=== PATIENT | female | born 1935 | race Caucasian/White ===

== ENCOUNTER 2019-06-08 10:22 | Emergency (ER) | payer MEDICARE, OTHER ==
[2019-06-08 10:36] VITALS: PULSE 60
--- NOTE | 2019-06-08 10:48 | EDM.PDOC ---
ED HPI GENERAL MEDICAL PROBLEM - General Chief Complaint: Back Pain or Injury Stated Complaint: BACK PAIN Time Seen by Provider: 06/08/19 10:35 Source of Information: Reports: Patient, Family (spouse) History Limitations: Reports: No Limitations - History of Present Illness INITIAL COMMENTS - FREE TEXT/NARRATIVE: 84-year-old female presents to the ED complaining of diffuse right low back pain radiating to the right buttock cheek and posterior right thigh to the knee. It does not travel below the knee. No recent falls or injuries. Patient gets around with aid of a cane because of Parkinson's disease to help with her balance. She also has a walker at home. She reports a similar type event couple years ago in her low back that was treated in [facility]. Vision has known osteoporosis and is on a bi-phsphonate every 6 months. Pain started suddenly started on Tuesday, June 06 and is progressively worsened. It is not bad if she's lying still it is painful to lie on that side. It's worse if she is standing or trying to walk. Denies any problems with her bladder or bowel control or at least no worsening of her stress incontinence. Onset: Sudden Onset Date: 06/06/19 Duration: Day(s):, Constant, Getting Worse Location: Reports: Back (Right low back radiate into the right buttock cheek and posterior lateral leg.) Quality: Reports: Ache, Throbbing, Other Severity: Moderate (Sharp and stabbing at times with standing. 7 out of 10) Improves with: Reports: Rest Worsens with: Reports: Other (Standing) Context: Reports: Other. 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 Right Lower Back Pain Score (Numeric/FACES): 8 - Related Data Allergies Allergy/AdvReac Type Severity Reaction Status Date / Time No Known Allergies Allergy Verified 06/08/19 10:36 Home Meds: Home Meds Allopurinol [Zyloprim] 150 mg PO DAILY 08/16/15 [History] Benazepril [Lotensin] 20 mg PO DAILY 08/16/15 [History] Carbidopa/Levodopa [Sinemet 10-100 mg] 1 tab PO ASDIRECTED 08/16/15 [History] Furosemide [Lasix] 20 mg PO BIDDIURETIC 08/16/15 [History] Potassium Chloride [Klor-Con M20] 20 meq PO DAILY 08/16/15 [History] atorvaSTATin [Lipitor] 10 mg PO BEDTIME 08/16/15 [History] Cetirizine [ZyrTEC] 10 mg PO DAILY 06/08/19 [History] Diclofenac Sodium [Voltaren] 50 mg PO BID #20 tab.ec 06/08/19 [Rx] Fluticasone Propionate [Flonase] 16 gm NS DAILY 06/08/19 [History] [place]-3 Fatty Acids/Fish Oil [Fish Oil 1,000 mg Softgel] 1 each PO DAILY [History] oxyCODONE HCl/Acetaminophen [Percocet 5-325 mg Tablet] 1 - 2 each PO Q4H PRN # 12 tablet 06/08/19 [Rx] predniSONE 20 mg PO ASDIRECTED #15 tab 06/08/19 [Rx] Past Medical History Cardiovascular History: Reports: High Cholesterol, Hypertension Gastrointestinal History: Reports: GERD Neurological History: Reports: Parkinson's - Past Surgical History Musculoskeletal Surgical History: Reports: Knee Replacement Social & Family History - Tobacco Use Smoking Status *Q: Never Smoker - Recreational Drug Use Recreational Drug Use: No - Living Situation & Occupation Living situation: Reports: Occupation: Retired ED ROS GENERAL - Review of Systems Review Of Systems: See Below Constitutional: Reports: Weakness, Fatigue, Decreased Appetite. Denies: Fever, Chills, Malaise HEENT: Reports: Glasses Respiratory: Reports: No Symptoms Cardiovascular: Reports: Blood Pressure Problem, Dyspnea on Exertion. Denies: Chest Pain, Claudication, Edema, Lightheadedness, Orthopnea Endocrine: Reports: Fatigue GI/Abdominal: Reports: Constipation : Reports: Frequency, Incontinence (Mostly stress-induced occasional urgency component no worse with recent back pain.) Musculoskeletal: Reports: Neck Pain, Shoulder Pain, Back Pain (Known also arthritic changes in her lower back no history of compression fractures.), Joint Pain (Knees and hips at times.) Skin: Reports: No Symptoms Neurological: Reports: Difficulty Walking (Has Parkinson's disease), Weakness ( or balance problems bradykinesia. ), Gait Disturbance, Other Psychiatric: Reports: No Symptoms. Denies: Hallucinations Hematologic/Lymphatic: Reports: No Symptoms Immunologic: Reports: No Symptoms ED EXAM,LOWER BACK PAIN/INJURY - Physical Exam Exam: See Below Exam Limited By: No Limitations General Appearance: Alert, WD/WN, No Apparent Distress, Other (Temperatures 36.9. Pulse is 60 and sinus. Respiratory is 16 blood pressures not recorded. O2 sats are 98%) Eye Exam: Bilateral Eye: Normal Inspection Throat/Mouth: Normal Inspection, Normal Oropharynx Head: Atraumatic, Normocephalic Neck: Normal Inspection, Supple, Limited Range of Motion, Tender Lateral. No: Lymphadenopathy (L), Lymphadenopathy (R) Respiratory/Chest: No Respiratory Distress, Lungs Clear, Normal Breath Sounds, No Accessory Muscle Use, Decreased Breath Sounds Cardiovascular: Normal Peripheral Pulses, Regular Rate, Rhythm, No Edema, No Gallop, No Murmur, No Rub (Breath sounds are very minimally decreased in both lower bases.) GI/Abdominal: Normal Bowel Sounds, Soft, Non-Tender, No Organomegaly, No Abnormal Bruit, No Mass, Pelvis Stable Back Exam: Other (No obvious paraspinal muscle spasm on either side of the lower back. There is point tenderness over L5-S1 facet joints bilaterally with slightly worse in the right as compared to the left. There is pain throughout the right mid and lower SI joint on the right side as compared to the left.) Extremities: Normal Inspection, Other (Has evidence of posterior 30 changes both knees with very limited external and internal rotation of both hips.) Neurological: Alert, Normal Mood/Affect, CN II-XII Intact, No Motor/Sensory Deficits, Oriented x 3. No: Normal Gait (Bradykinesia from Parkinson's disease. Uses a cane to aid her ambulation and balance.) Psychiatric: Normal Affect, Normal Mood Skin Exam: Warm, Dry, Intact, Normal Color, No Rash Course - Vital Signs Last Recorded V/S: Last Vital Signs Temp 36.9 C 06/08/19 10:34 Pulse 60 06/08/19 10:34 Resp 16 06/08/19 10:34 BP Pulse Ox 98 06/08/19 10:34 - Orders/Labs/Meds Orders: Active Orders 24 hr Category Date Time Status Lumbar Spine wo Cont [CT] Stat Exams 06/08/19 10:44 Taken - Radiology Interpretation Free Text/Narrative:: 84-year-old female presents the ED with sudden onset of diffuse right low back pain radiating to her posterior lateral buttock on the right side and into the posterior lateral thigh but not below the knee. No history of known compression fractures. History of osteoarthritis in her back and known osteoporosis. Pain is much worse when she tries to sit or ambulate. On exam pain is localized to the L5-S1 facet joints bilaterally and throughout the right sacroiliac joint. Plan : CT lumbar spine. Rule out compression fracture. - Re-Assessments/Exams Free Text/Narrative Re-Assessment/Exam: 06/08/19 11:12 CT lumbar spine is been completed. It revealed reveals advanced degenerative arthritic changes particularly in the lower 3 vertebra. There is slight retrolisthesis of L4 on L3. There is advanced degenerative arthritic changes in all of the facet joints of the lumbar spine particularly L3-L5. There is near complete loss of the disc space between L4-L5 and L5-S1. There is nerve root entrapment on the right side at L4-5 level. There are no compression fractures and no obvious herniated disks. Patient will be treated with a combination of prednisone and low-dose anti-inflammatory with pain management as needed for the next few days. Advise follow-up with Dr. Marcus her primary care physician in a week's time Departure - Departure Time of Disposition: 11:15 Disposition: Home, Self-Care 01 Condition: Fair Clinical Impression: Degenerative disc disease, lumbar, Sacroiliitis Degenerative arthritis of lumbar spine Qualifiers: Spinal osteoarthritis complication: with radiculopathy Qualified Code(s): M47.26 - Other spondylosis with radiculopathy, lumbar region - Discharge Information *PRESCRIPTION DRUG MONITORING PROGRAM REVIEWED*: No *COPY OF PRESCRIPTION DRUG MONITORING REPORT IN PATIENT LEO: No Prescriptions: Diclofenac Sodium [Voltaren] 50 mg PO BID #20 tab.ec oxyCODONE HCl/Acetaminophen [Percocet 5-325 mg Tablet] 1 - 2 each PO Q4H PRN # 12 tablet PRN Reason: pain relief. predniSONE 20 mg PO ASDIRECTED #15 tab Referrals: Nawaf Marcus MD [Primary Care Provider] - Forms: ED Department Discharge Additional Instructions: Evaluation the emergency room today in regards to acute onset of right low back pain rating to the right buttock and sacroiliac joint area. CT of the lumbar spine reveals advanced degenerative arthritic changes particularly in the facet joints. There was also associated degenerative disc disease particular at L4-L5 and L5-S1 levels. The discs appear well gone in this area. This does cause marked narrowing of the neural foramina on the right side at the L4-L5 level. Minor nerve root compression in this area causing current pain syndrome. There is also a component of right-sided sacroiliitis on examination. His means inflammation of the joint where joins on to the pelvic bones. Suggest treatment to be anti-inflammatory Voltaren 50 mg twice daily with food for the next 10 days. Prednisone 20 mg with breakfast and supper for 5 days and then 1 in the morning only for another 5 days to relieve pain and inflammation as well. Just picking up some Pepcid 20 mg and taking this once daily while taking the anti- inflammatory medication to protect the stomach from development of any ulcers or inflammation from the anti-inflammatory medicines. Prescription written for Percocet 5/325 mg tablet one every 4-6 hours as needed for pain relief until the anti-inflammatories become effective. Suggest follow-up with only next Tuesday if able to make sure that you are getting better. Expect marked improvement over the next 48-72 hours. - My Orders Last 24 Hours: My Active Orders 06/08/19 10:44 Lumbar Spine wo Cont [CT] Stat - Assessment/Plan Last 24 Hours: My Active Orders 06/08/19 10:44 Lumbar Spine wo Cont [CT] Stat
--- NOTE | 2019-06-08 12:04 | CT ---
CT lumbar spine Technique: Multiple axial sections were obtained from above the T11-T12 disc inferiorly through the L5-S1 disc. Reconstructed coronal and sagittal images were reviewed. Findings: T11-T12: Severe disc space narrowing with vacuum disc phenomena is noted. Posterior disc maintains a concave margin. No central canal stenosis or neural foraminal stenosis is seen. T12-L1: Posterior disc space narrowing is seen. Posterior disc maintains a concave margin. Mild degenerative apophyseal change is noted. No central canal stenosis or neural foraminal stenosis is seen. L1-L2: Minimal retrolisthesis by several millimeters is noted. Slight circumferential disc bulge is seen. Mild degenerative apophyseal change is noted. No central canal stenosis is seen. Disc bulging causes bilateral neural foraminal stenosis which is worse on the left side. No central canal stenosis is seen. L2-L3: Posterior disc space narrowing is seen. Moderate degenerative apophyseal change is noted with thickening of the ligamentum flavum. Moderate circumferential disc bulge is seen. Findings cause a moderate degree of central canal stenosis. Bilateral neural foraminal stenosis is also noted. L3-L4: Mild spondylolisthesis is seen measuring about 4 mm. This finding is due to severe degenerative apophyseal change. Thickening of the ligamentum flavum is seen. Posterior disc space narrowing is noted. Circumferential disc bulge is noted which is moderate in severity. Vacuum disc phenomena is noted within the disc. Findings cause moderate to severe central canal stenosis. Neural foramina are also felt to be compromised on both sides. L4-L5: Severe disc space narrowing is seen with vacuum phenomena. Fairly severe degenerative apophyseal change is seen. Central canal is mildly narrowed. Right neural foramina is narrowed. Left neural foramen appears patent where the nerve root exits. Circumferential disc bulge is present. L5-S1: Mild diffuse posterior disc bulge is seen. Vacuum disc phenomena is noted. Posterior disc space narrowing is seen. No central canal stenosis is seen. Neural foramina appear to be patent where the nerve roots exit. Severe degenerative apophyseal change is seen. No fracture is appreciated. Impression: 1. Diffuse degenerative change as noted above. Most significant findings are a moderate degree of central canal stenosis at L2-L3 and moderate to severe central canal stenosis at L3-L4. Several levels of neural foraminal stenosis are also noted. Diagnostic code #3
== END 2019-06-08 11:40 | disposition home or self-care (01) ==
LOC: JD.ED 10:22
DX: M51.37 Other intervertebral disc degeneration, lumbosacral region (principal); M46.1 Sacroiliitis, not elsewhere classified; M47.26 Other spondylosis with radiculopathy, lumbar region; G20 Parkinson's disease; E78.00 Pure hypercholesterolemia, unspecified; I10 Essential (primary) hypertension; Z79.899 Other long term (current) drug therapy
CPT/HCPCS: 72131; 72131-26; 99283-25

== ENCOUNTER 2019-09-24 12:38 | Emergency (ER) | payer MEDICARE, OTHER ==
[2019-09-24 13:04] VITALS: BP 84/38; PULSE 70
[2019-09-24] MEDS ORDERED: Sodium Chloride 0.9% 10 ML Syringe FLUSH PRN (13:19)
[2019-09-24] MEDS ORDERED: Sodium Chloride 0.9% 1,000 ML IV SCH (13:30)
--- NOTE | 2019-09-24 13:33 | EDM.PDOC ---
<Jolie Su - Last Filed: 09/24/19 13:22> ED HPI GENERAL MEDICAL PROBLEM - General Chief Complaint: Cardiovascular Problem Stated Complaint: FALL (3 TIME)/SYNCOPE Time Seen by Provider: 09/24/19 13:01 Source of Information: Reports: Patient, Significant Other History Limitations: Reports: No Limitations - History of Present Illness INITIAL COMMENTS - FREE TEXT/NARRATIVE: Patient is a pleasant 84-year-old female with a history of Parkinson's who presents for two weeks of diarrhea and syncope with two falls in the past five days. She reports that two weeks ago her abdomen started cramping and then the diarrhea started. She reports that she has at least 12 episodes per day. The abdominal cramping has resolved. She notes that the stool is mainly water with mucous since she has not been eating very much for the past week due to a decreased appetite. She has been pushing the fluids. She can not say with certainty whether she has seen blood in the stool or toilet, she thinks maybe she saw blood in the toilet when the diarrhea first started, but then states she had been eating a lot of beets, so unsure if it was blood or beets. She reports that the first time she fell five days ago, she had gotten out of bed to go to the bathroom, she made it to the bathroom but then her leg gave out and she fell to the ground. She does not know whether she hit her head during this fall. The most recent fall was last night, she got up out of the recliner and made it three steps when she "blacked out" and fell to the ground. She states her vision just went black and then she was on the floor. Her reports that she had a similar episode this morning, but he caught her before she fell to the ground. Onset: Gradual Duration: Week(s): - Related Data Allergies Allergy/AdvReac Type Severity Reaction Status Date / Time No Known Allergies Allergy Verified 09/24/19 12:58 Home Meds: Home Meds Benazepril [Lotensin] 20 mg PO DAILY 08/16/15 [History] Carbidopa/Levodopa [Sinemet 10-100 mg] 1.5 tab PO ASDIRECTED 08/16/15 [History] Furosemide [Lasix] 20 mg PO BIDDIURETIC 08/16/15 [History] Potassium Chloride [Klor-Con M20] 20 meq PO DAILY 08/16/15 [History] allopurinoL [Zyloprim] 150 mg PO DAILY 08/16/15 [History] Cetirizine [ZyrTEC] 10 mg PO DAILY 06/08/19 [History] Fluticasone Propionate [Flonase] 16 gm NS DAILY 06/08/19 [History] Calcium Carbonate/Vitamin D3 [Calcium Carbonate/Vitamin D 600 MG-200 Unit] 1 tab PO BID 09/24/19 [History] Cyanocobalamin (Vitamin B-12) [B-12] 1,000 mcg PO DAILY 09/24/19 [History] Past Medical History HEENT History: Reports: Impaired Vision Cardiovascular History: Reports: High Cholesterol, Hypertension Gastrointestinal History: Reports: GERD Genitourinary History: Reports: Other (See Below) Other Genitourinary History: 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 Neurological History: Reports: Parkinson's - Past Surgical History Musculoskeletal Surgical History: Reports: Knee Replacement Social & Family History - Tobacco Use Smoking Status *Q: Never Smoker - Caffeine Use Caffeine Use: Reports: Coffee Caffeine Use Comment: 2 cups a day - Recreational Drug Use Recreational Drug Use: No - Living Situation & Occupation Living situation: Reports: Occupation: Retired ED ROS GENERAL - Review of Systems Review Of Systems: See Below Constitutional: Reports: Decreased Appetite. Denies: Fever, Chills, Weakness, Fatigue Respiratory: Reports: No Symptoms. Denies: Shortness of Breath, Wheezing, Cough Cardiovascular: Reports: Lightheadedness, Syncope. Denies: Chest Pain, Edema GI/Abdominal: Reports: Diarrhea (at least 12 episodes per day), Decreased Appetite, Stool Incontinence. Denies: Abdominal Pain, Black Stool, Distension, Nausea, Vomiting Skin: Reports: No Symptoms. Denies: Rash Neurological: Reports: Syncope. Denies: Dizziness, Headache, Numbness, Tingling , Weakness Psychiatric: Reports: No Symptoms ED EXAM, GENERAL - Physical Exam Exam: See Below Exam Limited By: No Limitations General Appearance: Alert, WD/WN, No Apparent Distress Head: Atraumatic, Normocephalic Neck: Normal Inspection, Supple, Non-Tender, Full Range of Motion Respiratory/Chest: No Respiratory Distress, Lungs Clear, Normal Breath Sounds, No Accessory Muscle Use, Chest Non-Tender Cardiovascular: Normal Peripheral Pulses, Regular Rate, Rhythm, No Edema, No Gallop, No Murmur, No Rub GI/Abdominal: Normal Bowel Sounds, Soft, Non-Tender, No Organomegaly, No Distention, No Mass Back Exam: Normal Inspection Extremities: No Pedal Edema, Normal Capillary Refill Neurological: Alert, Oriented, Normal Cognition, No Motor/Sensory Deficits Psychiatric: Normal Affect, Normal Mood Skin Exam: Warm, Dry, Intact, Normal Color, No Rash Course - Vital Signs Last Recorded V/S: Last Vital Signs Temp 97.3 F 09/24/19 12:58 Pulse 70 09/24/19 12:58 Resp 16 09/24/19 12:58 BP 84/38 L 09/24/19 12:58 Pulse Ox 98 09/24/19 12:58 - Orders/Labs/Meds Orders: Active Orders 24 hr Category Date Time Status Cardiac Monitoring [RC] . DIRECTED Care 09/24/19 13:19 Active EKG Documentation Completion [RC] STAT Care 09/24/19 13:20 Active Peripheral IV Care [RC] . DIRECTED Care 09/24/19 13:19 Active Sodium Chloride 0.9% [Normal Saline] 1,000 ml Med 09/24/19 13:30 Active IV .BOLUS Sodium Chloride 0.9% [Saline Flush] Med 09/24/19 13:19 Active 10 ml FLUSH ASDIRECTED PRN Peripheral IV Insertion Adult [OM.PC] Stat Oth 09/24/19 13:19 Ordered Medication Orders Sodium Chloride (Normal Saline) 1,000 mls @ 1,000 mls/hr IV .BOLUS RL Last Admin: 09/24/19 13:38 Dose: 1,000 mls/hr Sodium Chloride (Saline Flush) 10 ml FLUSH ASDIRECTED PRN PRN Reason: Keep Vein Open Last Admin: 09/24/19 13:38 Dose: 10 ml Labs: Laboratory Tests 09/24/19 09/24/19 09/24/19 Range/Units 13:26 13:26 15:30 WBC 7.45 (3.98-10.04) K/mm3 RBC 4.31 (3.98-5.22) M/mm3 Hgb 12.5 D (11.2-15.7) gm/dl Hct 40.4 (34.1-44.9) % MCV 93.7 (79.4-94.8) fl MCH 29.0 (25.6-32.2) pg MCHC 30.9 L (32.2-35.5) g/dl RDW Std Deviation 50.0 H (36.4-46.3) fL Plt Count 219 (182-369) K/mm3 MPV 10.0 (9.4-12.3) fl Neut % (Auto) 76.0 H (34.0-71.1) % Lymph % (Auto) 10.9 L (19.3-51.7) % [place] % (Auto) 10.6 (4.7-12.5) % Eos % (Auto) 1.6 (0.7-5.8) Baso % (Auto) 0.5 (0.1-1.2) % Neut # (Auto) 5.66 (1.56-6.13) K/mm3 Lymph # (Auto) 0.81 L (1.18-3.74) K/mm3 Morris # (Auto) 0.79 H (0.24-0.36) K/mm3 Eos # (Auto) 0.12 (0.04-0.36) K/mm3 Baso # (Auto) 0.04 (0.01-0.08) K/mm3 Sodium 142 (136-145) mEq/L Potassium 3.7 (3.5-5.1) mEq/L Chloride 103 (98-107) mEq/L Carbon Dioxide 26 (21-32) mEq/L Anion Gap 16.7 H (5-15) BUN 41 H (7-18) mg/dL Creatinine 2.2 H (0.55-1.02) mg/dL Est Cr Clr Drug Dosing 16.82 mL/min Estimated GFR (MDRD) 21 (>60) mL/min BUN/Creatinine Ratio 18.6 H (14-18) Glucose 106 (83-115) mg/dL Calcium 10.4 H D (8.5-10.1) mg/dL Magnesium 1.5 L (1.8-2.4) mg/dl Total Bilirubin 0.7 (0.2-1.0) mg/dL AST 9 L (15-37) U/L ALT 9 L (14-59) U/L Alkaline Phosphatase 57 (46-116) U/L Troponin I < 0.017 (0.00-0.056) ng/mL Total Protein 6.2 L (6.4-8.2) g/dl Albumin 3.3 L (3.4-5.0) g/dl Globulin 2.9 gm/dL Albumin/Globulin Ratio 1.1 (1-2) Urine Color Yellow (Yellow) Urine Appearance Clear (Clear) Urine pH 5.5 (5.0-8.0) Ur Specific [place] 1.020 (1.005-1.030) Urine Protein Negative (Negative) Urine Glucose (UA) Negative (Negative) Urine Ketones Negative (Negative) Urine Occult Blood Negative (Negative) Urine Nitrite Negative (Negative) Urine Bilirubin Negative (Negative) Urine Urobilinogen 0.2 (0.2-1.0) Ur Leukocyte Esterase Negative (Negative) U Hyaline Cast (Auto) 20-30 H (0-5) /lpf Urine RBC 0-5 (0-5) /hpf Urine WBC 0-5 (0-5) /hpf Ur Squamous Epith Cells 0-5 (0-5) /hpf Urine Bacteria Few (FEW) /hpf Urine Mucus Not seen (FEW) /hpf Meds: Medications Generic Name Dose Route Start Last Admin Trade Name Freq PRN Reason Stop Dose Admin Sodium Chloride 1,000 mls @ 1,000 mls/hr 09/24/19 13:30 09/24/19 13:38 Normal Saline IV 1,000 mls/hr .BOLUS RL Administration Sodium Chloride 10 ml 09/24/19 13:19 09/24/19 13:38 Saline Flush FLUSH 10 ml ASDIRECTED PRN Administration Keep Vein Open Departure - Departure Disposition: Home, Self-Care 01 Clinical Impression: Dehydration Syncope Qualifiers: Syncope type: unspecified Qualified Code(s): R55 - Syncope and collapse Hypotension Qualifiers: Hypotension type: other hypotension type Qualified Code(s): I95.89 - Other hypotension Diarrhea Qualifiers: Diarrhea type: unspecified type Qualified Code(s): R19.7 - Diarrhea, unspecified Referrals: Emily Carrillo MD [Primary Care Provider] - 3 Days Forms: ED Department Discharge Additional Instructions: Drink plenty of fluids. Take lasix 1 pill in the morning and not the night dose. Try to give us a sample of stool. Please return if you are worse. Sepsis Event Note - Evaluation Sepsis Screening Result: No Definite Risk - Focused Exam Vital Signs: Vital Signs Temp Pulse Resp BP Pulse Ox 09/24/19 12:58 97.3 F 70 16 84/38 L 98 Date Exam was Performed: 09/24/19 Time Exam was Performed: 13:22 - My Orders Last 24 Hours: My Active Orders 09/24/19 13:19 Cardiac Monitoring [RC] . DIRECTED Peripheral IV Care [RC] . DIRECTED Sodium Chloride 0.9% [Saline Flush] 10 ml FLUSH ASDIRECTED PRN Peripheral IV Insertion Adult [OM.PC] Stat 09/24/19 13:20 EKG Documentation Completion [RC] STAT 09/24/19 13:30 Sodium Chloride 0.9% [Normal Saline] 1,000 ml IV .BOLUS - Assessment/Plan Last 24 Hours: My Active Orders 09/24/19 13:19 Cardiac Monitoring [RC] . DIRECTED Peripheral IV Care [RC] . DIRECTED Sodium Chloride 0.9% [Saline Flush] 10 ml FLUSH ASDIRECTED PRN Peripheral IV Insertion Adult [OM.PC] Stat 09/24/19 13:20 EKG Documentation Completion [RC] STAT 09/24/19 13:30 Sodium Chloride 0.9% [Normal Saline] 1,000 ml IV .BOLUS <Tristan Marcano A - Last Filed: 09/24/19 17:23> EKG INTERPRETATION EKG Date: 09/24/19 Time: 13:36 Rhythm: NSR Rate (Beats/Min): 64 [place]: Normal P-Wave: Present QRS: Normal ST-T: Normal QT: Normal Course - Re-Assessments/Exams Free Text/Narrative Re-Assessment/Exam: 09/24/19 16:31 I examined the patient myself and I agree with Jolie's assessment and plan. 09/24/19 17:17 I ordered an IV NS 1L bolus, labs, EKG, shoulder x-ray, and UA. Her EKG shows a NSR with no acute changes. Her CBC was negative. Her creatinine was elevated at 2.2. That was elevated from the last time she was here at 1.4. Her calcium was a little destiney at 10.4. Her troponin is negative. Her UA shows no UTI. She is drinking water now. She was unable to give us a stool sample. I will get her some specimen cups and see if we can figure out more with the diarrhea. I will also have her stop her evening lasix and drink more fluids. 09/24/19 17:19 Departure - Departure Time of Disposition: 17:25 Condition: Good Sepsis Event Note - Focused Exam Date Exam was Performed: 09/24/19 Time Exam was Performed: 17:16
--- NOTE | 2019-09-24 14:41 | CR ---
Right shoulder: Three views of the right shoulder were obtained. Comparison: No prior right shoulder exam. Joint space narrowing is is noted within the acromioclavicular joint with inferior spurring. Mild degenerative change also noted within the acromioclavicular joint. Bony structures are osteopenic. No acute fracture or other abnormality is seen. Impression: 1. Degenerative change and osteopenia. 2. Nothing acute is appreciated on right shoulder study. Diagnostic code #2 This report was dictated in [place] Standard Time
== END 2019-09-24 18:04 | disposition home or self-care (01) ==
LOC: JD.ED 12:38
DX: I95.89 Other hypotension (principal); E86.0 Dehydration; R19.7 Diarrhea, unspecified; G20 Parkinson's disease; I10 Essential (primary) hypertension
CPT/HCPCS: 36415; 73030; 80053; 81001; 83735; 84484; 85025; 93005; 96360; 99284; J7030; 93010; 99283

== ENCOUNTER 2019-09-28 14:36 | Emergency (ER) | payer MEDICARE, OTHER ==
[2019-09-28 15:16] VITALS: BP 124/58; PULSE 57
[2019-09-28] MEDS ORDERED: Sodium Chloride 0.9% 10 ML Syringe FLUSH PRN (15:55)
[2019-09-28] MEDS ORDERED: Lactated Ringers 1,000 ML IV ONE (17:00)
--- NOTE | 2019-09-28 17:01 | EDM.PDOC ---
ED HPI GENERAL MEDICAL PROBLEM - General Chief Complaint: Gastrointestinal Problem Stated Complaint: LETHARGIC/DIZZY/DIARRHEA Time Seen by Provider: 09/28/19 15:11 Source of Information: Reports: Patient, RN Notes Reviewed - History of Present Illness INITIAL COMMENTS - FREE TEXT/NARRATIVE: 84-year-old lady brought in by for evaluation of diarrhea. this is reported to have started a couple of weeks ago. He waited here in the ED 4 days ago, was given IV fluid, had some x-rays done was unable to give a stool sample. I see that one was brought in the next day and urned out to be C. difficile negative. According to the patient and her husbanddiarrhea has become "black and tarry". They are unable to tell me when this change occurred. no current cht or abdominal pain. Have history of Parkinson's. She does feel dizzy, weak lightheaded when standing and walking. - Related Data Allergies Allergy/AdvReac Type Severity Reaction Status Date / Time No Known Allergies Allergy Verified 09/28/19 15:08 Home Meds: Home Meds Benazepril [Lotensin] 20 mg PO DAILY 08/16/15 [History] Carbidopa/Levodopa [Sinemet 10-100 mg] 1.5 tab PO ASDIRECTED 08/16/15 [History] Furosemide [Lasix] 20 mg PO DAILY 08/16/15 [History] Potassium Chloride [Klor-Con M20] 20 meq PO BID 08/16/15 [History] allopurinoL [Zyloprim] 150 mg PO DAILY 08/16/15 [History] Cetirizine [ZyrTEC] 10 mg PO QID 06/08/19 [History] Fluticasone Propionate [Flonase] 16 gm NS DAILY 06/08/19 [History] Calcium Carbonate/Vitamin D3 [Calcium Carbonate/Vitamin D 600 MG-200 Unit] 20 mg PO DAILY 09/24/19 [History] Cyanocobalamin (Vitamin B-12) [B-12] 1,000 mcg PO DAILY 09/24/19 [History] Past Medical History HEENT History: Reports: Cataract, Impaired Vision Cardiovascular History: Reports: High Cholesterol, Hypertension Gastrointestinal History: Reports: GERD Genitourinary History: Reports: Other (See Below) Other Genitourinary History: 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 Neurological History: Reports: Parkinson's - Past Surgical History Female Surgical History: Reports: Hysterectomy Musculoskeletal Surgical History: Reports: Knee Replacement Social & Family History - Tobacco Use Smoking Status *Q: Never Smoker - Caffeine Use Caffeine Use: Reports: Coffee Caffeine Use Comment: 2 cups a day - Recreational Drug Use Recreational Drug Use: No - Living Situation & Occupation Living situation: Reports: Occupation: Retired ED ROS GENERAL - Review of Systems Review Of Systems: See Below Constitutional: Denies: Fever, Chills, Diaphoresis Respiratory: Denies: Shortness of Breath Cardiovascular: Denies: Chest Pain GI/Abdominal: Reports: Abdominal Pain (gone), Diarrhea, Decreased Appetite, Nausea (gone). Denies: Hematochezia, Vomiting Musculoskeletal: Reports: No Symptoms Skin: Reports: No Symptoms Neurological: Reports: Dizziness ED EXAM, GI/ABD - Physical Exam Exam: See Below General Appearance: Alert, No Apparent Distress Throat/Mouth: Normal Inspection, Other (oral mucosa is moist) Head: Atraumatic Neck: Supple Respiratory/Chest: No Respiratory Distress, Lungs Clear, Normal Breath Sounds Cardiovascular: Regular Rate, Rhythm GI/Abdominal Exam: Soft, Non-Tender. No: Guarding Rectal (Female) Exam: Other (trace of dark brown stool present, heme-negative) Back Exam: No: CVA Tenderness (L), CVA Tenderness (R) Extremities: Normal Inspection. No: Pedal Edema, Leg Pain Neurological: Alert, No Motor/Sensory Deficits Course - Vital Signs Last Recorded V/S: Last Vital Signs Temp 98.2 F 09/28/19 15:12 Pulse 57 L 09/28/19 15:12 Resp 14 09/28/19 15:12 BP 124/58 L 09/28/19 15:12 Pulse Ox 98 09/28/19 15:12 - Orders/Labs/Meds Orders: Active Orders 24 hr Category Date Time Status EKG 12 Lead [EKG Documentation Completion] [RC] STAT Care 09/28/19 15:55 Active Peripheral IV Care [RC] . DIRECTED Care 09/28/19 15:55 Active Sodium Chloride 0.9% [Saline Flush] Med 09/28/19 15:55 Active 10 ml FLUSH ASDIRECTED PRN Peripheral IV Insertion Adult [OM.PC] Stat Oth 09/28/19 15:55 Ordered Medication Orders Sodium Chloride (Saline Flush) 10 ml FLUSH ASDIRECTED PRN PRN Reason: Keep Vein Open Last Admin: 09/28/19 17:05 Dose: 10 ml Labs: Laboratory Tests 09/28/19 09/28/19 09/28/19 Range/Units 16:12 16:12 16:12 WBC 7.86 (3.98-10.04) K/mm3 RBC 4.28 (3.98-5.22) M/mm3 Hgb 12.4 (11.2-15.7) gm/dl Hct 40.1 (34.1-44.9) % MCV 93.7 (79.4-94.8) fl MCH 29.0 (25.6-32.2) pg MCHC 30.9 L (32.2-35.5) g/dl RDW Std Deviation 48.5 H (36.4-46.3) fL Plt Count 208 (182-369) K/mm3 MPV 10.3 (9.4-12.3) fl Neut % (Auto) 75.6 H (34.0-71.1) % Lymph % (Auto) 13.0 L (19.3-51.7) % [place] % (Auto) 8.3 (4.7-12.5) % Eos % (Auto) 2.5 (0.7-5.8) Baso % (Auto) 0.1 (0.1-1.2) % Neut # (Auto) 5.94 (1.56-6.13) K/mm3 Lymph # (Auto) 1.02 L (1.18-3.74) K/mm3 [place] # (Auto) 0.65 H (0.24-0.36) K/mm3 Eos # (Auto) 0.20 (0.04-0.36) K/mm3 Baso # (Auto) 0.01 (0.01-0.08) K/mm3 PT 10.6 (9.7-12.0) SECONDS INR 0.97 Sodium 142 (136-145) mEq/L Potassium 3.9 (3.5-5.1) mEq/L Chloride 105 (98-107) mEq/L Carbon Dioxide 27 (21-32) mEq/L Anion Gap 13.9 (5-15) BUN 25 H (7-18) mg/dL Creatinine 1.5 H (0.55-1.02) mg/dL Est Cr Clr Drug Dosing 24.67 mL/min Estimated GFR (MDRD) 33 (>60) mL/min BUN/Creatinine Ratio 16.7 (14-18) Glucose 92 (83-115) mg/dL Calcium 8.8 D (8.5-10.1) mg/dL Total Bilirubin 0.5 (0.2-1.0) mg/dL AST 11 L (15-37) U/L ALT 9 L (14-59) U/L Alkaline Phosphatase 52 (46-116) U/L Total Protein 5.9 L (6.4-8.2) g/dl Albumin 3.1 L (3.4-5.0) g/dl Globulin 2.8 gm/dL Albumin/Globulin Ratio 1.1 (1-2) Meds: Medications Generic Name Dose Route Start Last Admin Trade Name Freq PRN Reason Stop Dose Admin Sodium Chloride 10 ml 09/28/19 15:55 09/28/19 17:05 Saline Flush FLUSH 10 ml ASDIRECTED PRN Administration Keep Vein Open Discontinued Medications Generic Name Dose Route Start Last Admin Trade Name Freq PRN Reason Stop Dose Admin Lactated Ringer's 1,000 mls @ 999 mls/hr 09/28/19 17:00 09/28/19 17:05 Ringers, Lactated IV 09/28/19 18:00 999 mls/hr .BOLUS ONE Administration - Re-Assessments/Exams Free Text/Narrative Re-Assessment/Exam: 09/28/19 18:05. chemistries today from a hydration standpoint are improved from 4 days ago. on rectal exam there is just a trace of stool present heme- negative. Hemoglobin also stable with that of 4 days ago. Vitals have been stable while here in the ED. She has now been here in the ED for over 3 hrs without diarrhea. When I pointed this out to patient and her her did reply that the diarrhea occurs after she eats nd of course she has not been eating while here in the ED. We ahve given 500 ml LR. I suggested that she go to clear liquids for this evening until tomorrow afternoon Suggested that she start taking probiotic. whe missed her appointment with Dr. Carrillo today I've encouraged them to call Tuesday morning for appt. for next week. Discharge Instructions as documented. Departure - Departure Time of Disposition: 18:01 Disposition: Home, Self-Care 01 Condition: Fair Clinical Impression: Diarrhea Qualifiers: Diarrhea type: unspecified type Qualified Code(s): R19.7 - Diarrhea, unspecified - Discharge Information Referrals: Emily Carrillo MD [Primary Care Provider] - Forms: ED Department Discharge Additional Instructions: clear liquids until tomorrow noon, water, Jell-O, soup broth, tea,Sprite or 7- Up all acceptable. Than very careful bland diet as tolerated. Probiotic 2 doses yet this evening, 3 times tomorrow and than twice daily for the next week. see Dr. Carrillo next week for recheck, call Tuesday for appointment. The ED as needed if symptoms worsening in any way Sepsis Event Note - Evaluation Sepsis Screening Result: No Definite Risk - Focused Exam Vital Signs: Vital Signs Temp Pulse Resp BP Pulse Ox 09/28/19 15:12 98.2 F 57 L 14 124/58 L 98 Date Exam was Performed: 09/28/19 Time Exam was Performed: 18:04 - My Orders Last 24 Hours: My Active Orders 09/28/19 15:55 EKG 12 Lead [EKG Documentation Completion] [RC] STAT Peripheral IV Care [RC] . DIRECTED Sodium Chloride 0.9% [Saline Flush] 10 ml FLUSH ASDIRECTED PRN Peripheral IV Insertion Adult [OM.PC] Stat - Assessment/Plan Last 24 Hours: My Active Orders 09/28/19 15:55 EKG 12 Lead [EKG Documentation Completion] [RC] STAT Peripheral IV Care [RC] . DIRECTED Sodium Chloride 0.9% [Saline Flush] 10 ml FLUSH ASDIRECTED PRN Peripheral IV Insertion Adult [OM.PC] Stat
== END 2019-09-28 18:12 | disposition home or self-care (01) ==
LOC: JD.ED 14:36
DX: R19.7 Diarrhea, unspecified (principal); I10 Essential (primary) hypertension; G20 Parkinson's disease; Z79.899 Other long term (current) drug therapy
CPT/HCPCS: 36415; 80053; 85025; 85610; 93005; 96360; 99284; J7120; 99283

== ENCOUNTER 2020-06-02 06:59 | Day surgery (SDC) | payer MEDICARE, OTHER ==
--- NOTE | 2020-05-30 12:25 | PCM.PREANE ---
<Anjali Kaplan - Last Filed: 05/30/20 12:19> Preanesthetic Assessment - Procedure Proposed Procedure: EGD and Colonoscopy - Anesthesia/Transfusion/Family Hx Anesthesia History: Prior Anesthesia Reaction Type of Anesthesia Reaction: Excessive Nausea/Vomiting Family History of Anesthesia Reaction: No Transfusion History: No Prior Transfusion(s) Intubation History: Unknown - Review of Systems General: Fatigue (Parinson's Disease) Cardiovascular: No Symptoms (HTN, history of Paroxysmal SVT, elevated cholesterol) Gastrointestinal: No Symptoms (History of Colon Cancer, GERD, small hiatal hernia), Decreased Appetite Neurological: Dizziness (with positional changes), Numbness (polyneuropathy), 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 - Imaging/EKG Impressions: EKG: SR rate=66, PAC's, LAD, abnormal R-wave progression Holter: frequent SV ectopy with nonsustained atrial tachycardia with rate up to 120 - Allergies Allergies/Adverse Reactions: Allergies Allergy/AdvReac Type Severity Reaction Status Date / Time No Known Allergies Allergy Verified 05/30/20 16:14 - Anesthesia Plan Pre-Op Medication Ordered: Beta Dano Beta Dano: Metoprolol Med Last Dose Date: 06/02/20 - Acknowledgements Anesthesia Type Planned: MAC Pt an Appropriate Candidate for the Planned Anesthesia: Yes Alternatives and Risks of Anesthesia Discussed w Pt/Guardian: Yes Pt/Guardian Understands and Agrees with Anesthesia Plan: Yes PreAnesthesia Questionnaire HEENT History: Reports: Cataract, Impaired Vision Cardiovascular History: Reports: High Cholesterol, Hypertension Gastrointestinal History: Reports: GERD Genitourinary History: Reports: Other (See Below) Other Genitourinary History: 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 Neurological History: Reports: Parkinson's - Past Surgical History Female Surgical History: Reports: Hysterectomy Musculoskeletal Surgical History: Reports: Knee Replacement - HOME MEDS Home Medications: Home Meds Fluticasone Propionate [Flonase] 1 dose NS DAILY 06/08/19 [History] Calcium Carbonate/Vitamin D3 [Calcium Carbonate/Vitamin D 600 MG-200 Unit] 1 tab PO DAILY 09/24/19 [History] Cyanocobalamin (Vitamin B-12) [B-12] 1,000 mcg PO DAILY 09/24/19 [History] Aspirin 81 mg PO DAILY 05/30/20 [History] Carbidopa/Levodopa [Sinemet 25-100 mg Tablet] 1.5 tab PO 5XDAY 05/30/20 [History] Melatonin 6 mg PO BEDTIME PRN 05/30/20 [History] Metoprolol Succinate 25 mg PO DAILY 05/30/20 [History] Multivitamin [Poly-Vitamin] 1 tab PO DAILY 05/30/20 [History] Omeprazole Magnesium [Prilosec Otc] 20 mg PO DAILY PRN 05/30/20 [History] Ondansetron [Zofran] 4 mg PO TID 05/30/20 [History] Potassium Chloride 20 meq PO DAILY 05/30/20 [History] Psyllium Husk [Metamucil] 1 dose PO DAILY PRN 05/30/20 [History] Rosuvastatin [Crestor] 10 mg PO DAILY 05/30/20 [History] <Neida Tirado - Last Filed: 06/02/20 07:25> Preanesthetic Assessment - Review of Systems Cardiovascular: Other (HTN) Neurological: Other (parkinsons disease) - Physical Assessment NPO Status Time: 22:00 Weight: 65.1 kg Airway Class: Mallampati = 2 Dentition: Reports: Normal Dentition Thyro-Mental Finger Breadths: 3 Mouth Opening Finger Breadths: 3 ROM/Head Extension: Full Lungs: Clear to Auscultation, Normal Respiratory Effort Cardiovascular: Regular Rate, Regular Rhythm - Blood Blood Available: No Product(s) Available: None - Anesthesia Plan Med Last Dose Time: 05:30 PreAnesthesia Questionnaire - CURRENT (IN HOUSE) MEDS Current Meds: Current Medications Lactated Ringer's (Ringers, Lactated) 1,000 mls @ 125 mls/hr IV ASDIRECTED RL Stop: 06/02/20 23:00 Lidocaine/Sodium Bicarbonate (Buffered Lidocaine 1% In Ns 8.4%) 0.25 ml IDERM ONETIME PRN PRN Reason: Prior to IV Start Stop: 06/02/20 18:00 Scopolamine (Transderm-Scop) 1.5 mg TRDERM ONETIME PRN PRN Reason: PONV Stop: 06/02/20 18:00 Sodium Chloride (Saline Flush) 10 ml FLUSH ASDIRECTED PRN PRN Reason: Keep Vein Open Stop: 06/02/20 18:00
[~2020-06-02 06:59] MED LIST: Lactated Ringers 1,000 ML IV SCH; Lidocaine 1%/Sod Bicarbonate in NS 8.4% 1 ML Syringe IDERM PRN; Scopolamine 1.5 MG Transdermal Patch TRDERM PRN; Sodium Chloride 0.9% 10 ML Syringe FLUSH PRN
[2020-06-02] MEDS ORDERED: Propofol 200 MG/20 ML SDV ONE (08:03)
--- NOTE | 2020-06-02 10:14 | PCM48HPAN ---
Post Anesthesia Note - EVALUATION WITHIN 48HRS OF ANESTHETIC Vital Signs in Normal Range: Yes Patient Participated in Evaluation: Yes Respiratory Function Stable: Yes Airway Patent: Yes Cardiovascular Function Stable: Yes Hydration Status Stable: Yes Pain Control Satisfactory: Yes Nausea and Vomiting Control Satisfactory: Yes Mental Status Recovered: Yes Vital Signs: Last Vital Signs Temp 36.6 C 06/02/20 07:10 Pulse 54 L 06/02/20 07:10 Resp 16 06/02/20 07:10 BP 119/74 06/02/20 07:10 Pulse Ox 100 06/02/20 07:10
--- NOTE | 2020-06-02 11:13 | PROC ---
DATE OF OPERATION: SURGEON: Blanka Negrete MD PREOPERATIVE DIAGNOSES: Inflammation of the colon, early satiety. POSTOPERATIVE DIAGNOSES: 1. Mild esophagitis. 2. 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 3. Multiple colonic polyps. 4. Slight inflammation in the descending colon. 5. Diverticulosis. 6. Intact colorectal anastomosis. ANESTHESIA: Monitored anesthesia care. OPERATION PERFORMED: 1. Esophagogastroduodenoscopy. 2. Colonoscopy. ESTIMATED BLOOD LOSS: Minimal. COMPLICATIONS: None. INDICATIONS AND CONSENT: The patient is an 85-year-old female who has history of prior colon cancer on the left side. She underwent partial colectomy and colorectal anastomosis. The patient has been having some loose bowel movements without any abdominal pain as well as early satiety. She underwent a CT scan at the end of April that revealed inflammation in the transverse and the left colon. Due to this, colonoscopy was recommended and EGD as well for early satiety. Risks, benefits, and alternatives were discussed, and informed consent was obtained. DESCRIPTION OF PROCEDURE: The patient was taken to the procedure room, placed in left lateral decubitus position. Monitored anesthesia care was induced, and time-out was performed. We began with EGD. Scope was inserted and taken all the way to the second portion of duodenum. In the proximal second portion of duodenum, there was a large-mouthed diverticulum containing pills. We entered the diverticulum and inspected it. There was no other abnormality. The mucosa of the diverticulum appeared to be normal. The rest of the duodenum appeared to be normal without any other lesions. We went back to the stomach, which appeared to be normal. There was a medium-sized hiatal hernia, sliding type. In the GE junction that was above the hiatal hernia, there was an area that appeared to be slightly hypertrophic indicative of chronic esophagitis. Due to this hypertrophy, we biopsied this area for pathologic evaluation. Then, we went back into the stomach and suctioned the air out, and the rest of the esophagus was otherwise normal. The biopsies were taken with cold forceps. Then, we concluded the EGD at this point and began the colonoscopy. Digital rectal examination was performed, and perianal exam was performed. There was small grade 2 hemorrhoid that was non-inflamed and appeared to be non-bleeding. A pediatric colonoscope was used in this case because of the patient's small stature. The scope was inserted and taken all the way to the cecum. Appendiceal orifice and ileocecal valve were photographed. In the cecum, there was a small 3 mm pedunculated polyp that was taken out. We went back into the ascending colon. There was a small a 3 mm polyp that was also removed. In the splenic flexure, there were three polyps ranging from 2 mm to 4 mm that were removed. In the transverse colon, there were four polyps ranging from 2 mm to 4 mm that were removed as well. All polyps were removed with cold forceps. Removal was complete. EBL was minimal. Otherwise, there were no other polyps. Because of the history of inflammation by CT scan, random biopsies were taken in the ascending colon and transverse colon, splenic flexure, descending colon, sigmoid colon, and at the colo-rectal anastomosis. Of note, the splenic flexure and descending colon appeared to be slightly more congested than the rest of the colon. Biopsies were also taken with cold forceps. EBL was minimal. Retroflexion in the colon was not possible because the colorectal anastomosis was obscuring the vision, not leaving enough room for this portion of the procedure. However, the distal rectum and anal canal were visualized and appeared to be normal. At this point, air was suctioned from the rectum and scope taken out, and the procedure was concluded. Therefore, a total of 9 polyps were removed in this procedure. The patient will be allowed to go home. The patient will call the clinic with any complications. OSMIN /[id number]
[2020-06-02 11:23] VITALS: BP 167/61; PULSE 54
== END 2020-06-02 11:30 | disposition home or self-care (01) ==
LOC: JD.SDS 06:59
PROVIDERS: ATTEND Surgery
DX: K52.832 Lymphocytic colitis (principal); D12.0 Benign neoplasm of cecum; D12.3 Benign neoplasm of transverse colon; C16.8 Malignant neoplasm of overlapping sites of stomach; K44.9 Diaphragmatic hernia without obstruction or gangrene; K20.90 Esophagitis, unspecified without bleeding; K64.1 Second degree hemorrhoids; D50.9 Iron deficiency anemia, unspecified; G20 Parkinson's disease; G62.9 Polyneuropathy, unspecified; N17.9 Acute kidney failure, unspecified; N18.30 Chronic kidney disease, stage 3 unspecified; I47.1 Supraventricular tachycardia; K21.9 Gastro-esophageal reflux disease without esophagitis; E78.5 Hyperlipidemia, unspecified; I12.9 Hypertensive chronic kidney disease with stage 1 through stage 4 chronic kidney disease, or unspecified chronic kidney disease; Z80.0 Family history of malignant neoplasm of digestive organs; Z98.890 Other specified postprocedural states; Z79.899 Other long term (current) drug therapy
CPT/HCPCS: 43239; 45380; A9270; J2704; J7120; 00813

== ENCOUNTER 2020-08-04 06:33 | Emergency (ER) | payer MEDICARE, OTHER ==
[2020-08-04] MEDS ORDERED: Acetaminophen 325 MG Tab PO ONE (07:05)
[2020-08-04 07:06] VITALS: BP 139/86; PULSE 55
--- NOTE | 2020-08-04 08:26 | EDM.PDOC ---
ED HPI GENERAL MEDICAL PROBLEM - General Chief Complaint: Headache Stated Complaint: UNABLE TO SLEEP/HEARING VOICES Time Seen by Provider: 08/04/20 06:58 Source of Information: Reports: Patient History Limitations: Reports: No Limitations - History of Present Illness INITIAL COMMENTS - FREE TEXT/NARRATIVE: The patient presents with a headache. She said it woke her up at 2am. 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 She said the headache is not that bad. She says it is in the back of her head. She has no fever, chills, cough, congestion, runny nose, chest pain, shortness of breath, abdominal pain, nausea, vomiting, numbness or weakness. She says the music in her head has been there for awhile but this morning it was worse. She is very hard of hearing and she did not bring her hearing aids. Onset: Gradual Duration: Hour(s): Location: Reports: Head Quality: Reports: Ache Severity: Mild Improves with: Reports: None Worsens with: Reports: None Associated Symptoms: Reports: Headaches. Denies: Chest Pain, Cough, Fever/Chills, Nausea/Vomiting, Shortness of Breath Right Headache Pain Score (Numeric/FACES): 6 - Related Data Allergies Allergy/AdvReac Type Severity Reaction Status Date / Time No Known Allergies Allergy Verified 08/04/20 06:54 Home Meds: Home Meds Fluticasone Propionate [Flonase] 1 dose NS DAILY 06/08/19 [History] Calcium Carbonate/Vitamin D3 [Calcium Carbonate/Vitamin D 600 MG-200 Unit] 1 tab PO DAILY 09/24/19 [History] Cyanocobalamin (Vitamin B-12) [B-12] 1,000 mcg PO DAILY 09/24/19 [History] Aspirin 81 mg PO DAILY 05/30/20 [History] Carbidopa/Levodopa [Sinemet 25-100 mg Tablet] 2 tab PO DAY 05/30/20 [History] Melatonin 6 mg PO BEDTIME PRN 05/30/20 [History] Metoprolol Succinate 25 mg PO DAILY 05/30/20 [History] Multivitamin [Poly-Vitamin] 1 tab PO DAILY 05/30/20 [History] Omeprazole Magnesium [Prilosec Otc] 20 mg PO DAILY PRN 05/30/20 [History] Potassium Chloride 20 meq PO DAILY 05/30/20 [History] Psyllium Husk [Metamucil] 1 dose PO DAILY PRN 05/30/20 [History] Rosuvastatin [Crestor] 10 mg PO DAILY 05/30/20 [History] Ondansetron [Zofran ODT] 4 mg PO TID 08/04/20 [History] amLODIPine [Norvasc] 5 mg PO DAILY 08/04/20 [History] hydroCHLOROthiazide [Hydrochlorothiazide] 25 mg PO DAILY 08/04/20 [History] Past Medical History HEENT History: Reports: Cataract, Impaired Vision Cardiovascular History: Reports: Blood Clots/VTE/DVT, High Cholesterol, Hypertension, Other (See Below) Other Cardiovascular History: SVT, varicose veins Respiratory History: Reports: None Gastrointestinal History: Reports: Chronic Diarrhea, GERD Other Gastrointestinal History: post op nausea and vomiting Genitourinary History: Reports: Other (See Below) Other Genitourinary History: CKDIII, proteinuria CPC History: Reports: None Musculoskeletal History: Reports: Gout, Osteoarthritis, Osteoporosis, Other (See Below) Other Musculoskeletal History: restless leg syndrome, right wrist carpal tunnel Neurological History: Reports: Parkinson's, Other (See Below) Other Neuro History: acoustic nerve injury, chronic hemifacial spasm Psychiatric History: Reports: None Endocrine/Metabolic History: Reports: None Hematologic History: Reports: Anemia, Iron Deficiency Immunologic History: Reports: None Oncologic (Cancer) History: Reports: Colon Dermatologic History: Reports: Other (See Below) Other Dermatologic History: phlebitis and thrombophlebitis - Past Surgical History Head Surgeries/Procedures: Reports: None HEENT Surgical History: Reports: Cataract Surgery, Tonsillectomy Cardiovascular Surgical History: Reports: None Respiratory Surgical History: Reports: None GI Surgical History: Reports: Cholecystectomy, Colon, Colonoscopy Female Surgical History: Reports: Hysterectomy Endocrine Surgical History: Reports: None Neurological Surgical History: Reports: None Musculoskeletal Surgical History: Reports: Knee Replacement Oncologic Surgical History: Reports: None Dermatological Surgical History: Reports: None Social & Family History - Tobacco Use Tobacco Use Status *Q: Never Tobacco User - Caffeine Use Caffeine Use: Reports: Coffee Caffeine Use Comment: 2 cups a day - Recreational Drug Use Recreational Drug Use: No - Living Situation & Occupation Living situation: Reports: Occupation: Retired ED [employer] [facility] - Review of Systems Review Of Systems: See Below Constitutional: Reports: No Symptoms HEENT: Reports: No Symptoms Respiratory: Reports: No Symptoms Cardiovascular: Reports: No Symptoms Endocrine: Reports: No Symptoms GI/Abdominal: Reports: No Symptoms : Reports: No Symptoms Musculoskeletal: Reports: No Symptoms Skin: Reports: No Symptoms Neurological: Reports: Headache - Physical Exam Exam: See Below Exam Limited By: No Limitations General Appearance: Alert, No Apparent Distress Ears: Normal External Exam, Normal Canal, Normal TMs Nose: Normal Inspection Head Exam: Atraumatic, Normocephalic Neck: Normal Inspection, Supple, Non-Tender Respiratory/Chest: No Respiratory Distress, Lungs Clear, Normal Breath Sounds Cardiovascular: Regular Rate, Rhythm, No Edema, No Murmur GI/Abdominal: Soft, Non-Tender, No Organomegaly, No Mass Neuro Exam (Abbreviated): Alert, Oriented, No Motor/Sensory Deficits Course - Vital Signs Last Recorded V/S: Last Vital Signs Temp 98.6 F 08/04/20 06:51 Pulse 55 L 08/04/20 06:51 Resp 16 08/04/20 06:51 BP 139/86 08/04/20 06:51 Pulse Ox 96 08/04/20 06:51 - Orders/Labs/Meds Orders: Active Orders 24 hr Category Date Time Status Cardiac Monitoring [RC] . DIRECTED Care 08/04/20 07:05 Active Head wo Cont [CT] Stat Exams 08/04/20 07:05 Taken Labs: Laboratory Tests 08/04/20 08/04/20 Range/Units 07:34 07:34 WBC 7.58 (3.98-10.04) K/mm3 RBC 4.11 (3.98-5.22) M/mm3 Hgb 12.2 (11.2-15.7) gm/dl Hct 39.1 (34.1-44.9) % MCV 95.1 H (79.4-94.8) fl MCH 29.7 (25.6-32.2) pg MCHC 31.2 L (32.2-35.5) g/dl RDW Std Deviation 44.8 (36.4-46.3) fL Plt Count 183 (182-369) K/mm3 MPV 9.4 (9.4-12.3) fl Neut % (Auto) 72.6 H (34.0-71.1) % Lymph % (Auto) 12.5 L (19.3-51.7) % [place] % (Auto) 9.4 (4.7-12.5) % Eos % (Auto) 4.5 (0.7-5.8) Baso % (Auto) 0.7 (0.1-1.2) % Neut # (Auto) 5.51 (1.56-6.13) K/mm3 Lymph # (Auto) 0.95 L (1.18-3.74) K/mm3 [place] # (Auto) 0.71 H (0.24-0.36) K/mm3 Eos # (Auto) 0.34 (0.04-0.36) K/mm3 Baso # (Auto) 0.05 (0.01-0.08) K/mm3 Sodium 140 (136-145) mEq/L Potassium 3.0 L (3.5-5.1) mEq/L Chloride 104 (98-107) mEq/L Carbon Dioxide 30 (21-32) mEq/L Anion Gap 9.0 (5-15) BUN 28 H (7-18) mg/dL Creatinine 1.2 H (0.55-1.02) mg/dL Est Cr Clr Drug Dosing 27.84 mL/min Estimated GFR (MDRD) 43 (>60) mL/min BUN/Creatinine Ratio 23.3 H (14-18) Glucose 108 (83-115) mg/dL Calcium 9.0 (8.5-10.1) mg/dL Total Bilirubin 0.7 (0.2-1.0) mg/dL AST 27 (15-37) U/L ALT 6 L (14-59) U/L Alkaline Phosphatase 53 (46-116) U/L Total Protein 6.0 L (6.4-8.2) g/dl Albumin 3.2 L (3.4-5.0) g/dl Globulin 2.8 gm/dL Albumin/Globulin Ratio 1.1 (1-2) Meds: Medications Discontinued Medications Generic Name Dose Route Start Last Admin Trade Name Freq PRN Reason Stop Dose Admin Acetaminophen 975 mg 08/04/20 07:05 08/04/20 07:25 Tylenol PO 08/04/20 07:06 975 mg NOW ONE Administration - Re-Assessments/Exams Free Text/Narrative Re-Assessment/Exam: 08/04/20 08:[address] of her head and labs. Her CT shows no evidence of acute intracranial abnormality. No evidence of acute infarction, hemorrhage, or mass. Atrophy and microvascular disease. Few nonspecific small rounded skull lucencies. Her CBC looks good. Her K is low at 3. She is on potassium. Her creatinine was slightly elevated at 1.2. Departure - Departure Time of Disposition: 08:50 Disposition: Home, Self-Care 01 Condition: Good Clinical Impression: Auditory hallucinations Headache Qualifiers: Headache type: other headache syndrome Qualified Code(s): G44.89 - Other headache syndrome - Discharge Information *PRESCRIPTION DRUG MONITORING PROGRAM REVIEWED*: Not Applicable *COPY OF PRESCRIPTION DRUG MONITORING REPORT IN PATIENT LEO: Not Applicable Referrals: Emily Carrillo MD [Primary Care Provider] - 2 Days Forms: ED Department Discharge Additional Instructions: Take your medications as prescribed. Follow up with Dr Carrillo in a couple days. Please return if you are worse. Sepsis Event Note (ED) - Evaluation Sepsis Screening Result: No Definite Risk - Focused Exam Vital Signs: Vital Signs Temp Pulse Resp BP Pulse Ox 08/04/20 06:51 98.6 F 55 L 16 139/86 96 - My Orders Last 24 Hours: My Active Orders 08/04/20 07:05 Cardiac Monitoring [RC] . DIRECTED Head wo Cont [CT] Stat - Assessment/Plan Last 24 Hours: My Active Orders 08/04/20 07:05 Cardiac Monitoring [RC] . DIRECTED Head wo Cont [CT] Stat
--- NOTE | 2020-08-04 10:45 | CT ---
Head CT Technique: Multiple axial sections through the brain were obtained. Intravenous contrast was not utilized. Reconstructed coronal and sagittal images were obtained. Comparison: No prior intracranial imaging is available. Findings: Atherosclerotic calcification is seen within the interhemispheric falx. Ventricles along with basal cisterns and sulci over the convexities appear within normal limits. 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 Mild diminished density is noted within the periventricular white matter compatible with small vessel ischemic demyelination change. No evidence of intracranial hemorrhage. No midline shift or mass-effect is seen. Mild atherosclerotic calcification is seen within the vertebral vessels with more prominent atherosclerotic calcification within the carotid siphons. Bone window settings were reviewed. Visualized paranasal sinuses show nothing acute. Visualized mastoid sinuses show nothing acute. No acute calvarial finding is appreciated. Previous old suboccipital craniotomy is noted. Impression: 1. Mild senescent change as noted above. Suboccipital craniotomy which appears old. 2. Nothing acute is definitely appreciated. Diagnostic code #2 I agree with preliminary report from [facility], finalized on 08/04/20, 8:38 AM DEVELOPMENT ASSOCIATE
== END 2020-08-04 09:00 | disposition home or self-care (01) ==
LOC: JD.ED 06:33
DX: G44.89 Other headache syndrome (principal); R44.0 Auditory hallucinations; E78.00 Pure hypercholesterolemia, unspecified; K21.9 Gastro-esophageal reflux disease without esophagitis; I12.9 Hypertensive chronic kidney disease with stage 1 through stage 4 chronic kidney disease, or unspecified chronic kidney disease; N18.30 Chronic kidney disease, stage 3 unspecified; G20 Parkinson's disease; Z79.82 Long term (current) use of aspirin; Z79.899 Other long term (current) drug therapy; Z90.49 Acquired absence of other specified parts of digestive tract; Z90.710 Acquired absence of both cervix and uterus
CPT/HCPCS: 36415; 70450; 80053; 85025; 99285; A9270

== ENCOUNTER 2021-02-19 09:12 | Inpatient (IN) | payer MEDICARE, OTHER ==
[2021-02-19] MEDS ORDERED: Sodium Chloride 0.9% 10 ML Syringe FLUSH PRN ×2 (09:27→11:50)
[2021-02-19] MEDS ORDERED: Diltiazem 50 MG/10 ML SDV IVPUSH ONE (09:41)
--- NOTE | 2021-02-19 10:27 | CR ---
Chest: Portable view of the chest was obtained. Comparison: No prior chest imaging is available. Heart is enlarged. Upper mediastinum is normal. Pacemaker is present. Slight parenchymal density is seen within the right lung base. Lungs otherwise are clear. Degenerative change is noted within both shoulders. Bony structures are osteopenic. Scattered degenerative change is seen within the spine. Impression: 1. Slight density within the right lung base either due to atelectasis or minimal pneumonia. 2. Cardiomegaly with pacemaker. 3. Bone findings which are age-related as described above. Diagnostic code #3
--- NOTE | 2021-02-19 10:27 | EDM.PDOC ---
ED HPI GENERAL MEDICAL PROBLEM - General Chief Complaint: Cardiovascular Problem Stated Complaint: CHEST PAIN,BACK PAIN,COUGH, Time Seen by Provider: 02/19/21 09:27 Source of Information: Reports: Patient, Family History Limitations: Reports: No Limitations - History of Present Illness INITIAL COMMENTS - FREE TEXT/NARRATIVE: 86-year-old female presents the emergency department today with complaints of constipation, cough x2 days, fatigue, and difficulty swallowing. Patient states it has been about 3 days since her last bowel movement and she has taken stool softeners and milk of a magnesia but has yet to have a bowel movement. She states she developed cough about 2 days ago which is productive of green-colored sputum. Patient denies any recent fever, chills, nausea or vomiting. She states she has chronic abdominal pain due to a hiatal hernia. Her reports that over the past couple of weeks she has had more difficulty swallowing. When she attempts to swallow her pills she does gag quite a bit. She denies any orthopnea or swelling of the feet and ankles. Of note the patient does have a history of A. fib, she has a pacemaker, she is on Eliquis for anticoagulation, and she has Parkinson's disease. - Related Data Allergies Allergy/AdvReac Type Severity Reaction Status Date / Time No Known Allergies Allergy Verified 02/19/21 09:23 Home Meds: Home Meds Fluticasone Propionate [Flonase] 1 dose NS DAILY 06/08/19 [History] Calcium Carbonate/Vitamin D3 [Calcium Carbonate/Vitamin D 600 MG-200 Unit] 1 tab PO DAILY 09/24/19 [History] Cyanocobalamin (Vitamin B-12) [B-12] 1,000 mcg PO DAILY 09/24/19 [History] Carbidopa/Levodopa [Sinemet 25-100 mg Tablet] 2 tab PO 5XDAY 05/30/20 [History] Melatonin 6 mg PO BEDTIME PRN 05/30/20 [History] Metoprolol Succinate 25 mg PO DAILY 05/30/20 [History] Multivitamin [Poly-Vitamin] 1 tab PO DAILY 05/30/20 [History] Omeprazole Magnesium [Prilosec Otc] 20 mg PO DAILY PRN 05/30/20 [History] Potassium Chloride 20 meq PO DAILY 05/30/20 [History] Psyllium Husk [Metamucil] 1 dose PO DAILY PRN 05/30/20 [History] Rosuvastatin [Crestor] 10 mg PO DAILY 05/30/20 [History] Ondansetron [Zofran ODT] 4 mg PO TID 08/04/20 [History] amLODIPine [Norvasc] 5 mg PO DAILY 08/04/20 [History] Apixaban [Eliquis] 1 tab PO DAILY 02/19/21 [History] Past Medical History HEENT History: Reports: Cataract, Impaired Vision Cardiovascular History: Reports: Blood Clots/VTE/DVT, High Cholesterol, Hypertension, Pacemaker, Other (See Below) Other Cardiovascular History: SVT, varicose veins Respiratory History: Reports: None Gastrointestinal History: Reports: Chronic Diarrhea, GERD Other Gastrointestinal History: post op nausea and vomiting Genitourinary History: Reports: Other (See Below) Other Genitourinary History: CKDIII, proteinuria 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 Musculoskeletal History: Reports: Gout, Osteoarthritis, Osteoporosis, Other (See Below) Other Musculoskeletal History: restless leg syndrome, right wrist carpal tunnel Neurological History: Reports: Parkinson's, Other (See Below) Other Neuro History: acoustic nerve injury, chronic hemifacial spasm Psychiatric History: Reports: None Endocrine/Metabolic History: Reports: None Hematologic History: Reports: Anemia, Iron Deficiency Immunologic History: Reports: None Oncologic (Cancer) History: Reports: Colon Dermatologic History: Reports: Other (See Below) Other Dermatologic History: phlebitis and thrombophlebitis - Infectious Disease History Infectious Disease History: Reports: Chicken Pox, Measles, Mumps, Shingles - Past Surgical History Head Surgeries/Procedures: Reports: None HEENT Surgical History: Reports: Cataract Surgery, Tonsillectomy Cardiovascular Surgical History: Reports: None Respiratory Surgical History: Reports: None GI Surgical History: Reports: Cholecystectomy, Colon, Colonoscopy Female Surgical History: Reports: Hysterectomy Endocrine Surgical History: Reports: None Neurological Surgical History: Reports: None Musculoskeletal Surgical History: Reports: Knee Replacement Oncologic Surgical History: Reports: None Dermatological Surgical History: Reports: None Social & Family History - Family History Family Medical History: No Pertinent Family History - Tobacco Use Tobacco Use Status *Q: Never Tobacco User - Caffeine Use Caffeine Use: Reports: Coffee, Tea Caffeine Use Comment: 2 cups a day - Recreational Drug Use Recreational Drug Use: No - Living Situation & Occupation Living situation: Reports: Occupation: Retired ED [facility] GENERAL - Review of Systems Review Of Systems: Comprehensive ROS is negative, except as noted in HPI. ED EXAM, GENERAL - Physical Exam Exam: See Below Exam Limited By: No Limitations General Appearance: Alert, WD/WN, No Apparent Distress Ears: Normal External Exam. No: Hearing Grossly Normal (It is hard of hearing she does wear bilateral hearing aids) Nose: Normal Inspection Throat/Mouth: Normal Inspection, Normal Lips, Normal Voice, No Airway Compromise, Dysphagia (Patient states this is a new, she has had swallowing issues over the course the past couple of weeks) Head: Atraumatic, Normocephalic Neck: Normal Inspection, Supple Respiratory/Chest: No Respiratory Distress, No Accessory Muscle Use, Chest Non- Tender, Crackles (Right posterior lower lobe). No: Lungs Clear (Ecchymosis noted to the right posterior lower lobe) Cardiovascular: Normal Peripheral Pulses, No Edema, No Murmur, Tachycardia, Irregularly Irregular Peripheral Pulses: 2+: Radial (L), Radial (R), Dorsalis Pedis (L), Dorsalis Pedis (R) GI/Abdominal: Normal Bowel Sounds, Soft, Non-Tender (Female) Exam: Deferred Rectal (Female) Exam: Deferred Back Exam: Normal Inspection Extremities: Normal Inspection, No Pedal Edema Neurological: Alert, Oriented, Normal Cognition Psychiatric: Normal Affect, Normal Mood Skin Exam: Warm, Dry, Intact, Normal Color, No Rash Lymphatic: No Adenopathy #1 Interpretation EKG Date: 02/19/21 Time: 09:21 Rhythm: A-Fib Rate (Beats/Min): 130 [place]: Normal P-Wave: Absent QRS: Wide ST-T: Normal QT: Normal EKG Interpretation Comments: Per Dr. Santos interpretation: Atrial fibrillation with a rate of 100 to 175 bpm; early R wave transitionconsider RVH versus septal hypertrophy; decreased voltage in the limb and precordial leads; new Q waves III & aVFconsider old inferior wall RI; QTC is mildly prolonged; diffuse T wave flattening I, aVL, V4 through V6 Course - Vital Signs Text/Narrative:: As stated above, patient presents with constipation, cough, and atrial fibs. EKG shows A. fib with RVR rate of 130. I have ordered labs to include a CBC, CMP, magnesium level, C-reactive protein, troponin, proBNP, and a urinalysis with micro and culture if indicated. I have ordered an EKG, portable chest x- ray, and a flat and upright of the abdomen. Patient will be given Cardizem 10 mg bolus and we will reevaluate the need for repeat bolus. Last Recorded V/S: Last Vital Signs Temp 97.5 F 02/19/21 09:26 Pulse 117 H 02/19/21 10:37 Resp 20 02/19/21 09:26 BP 106/71 02/19/21 10:37 Pulse Ox 96 02/19/21 09:26 - Orders/Labs/Meds Orders: Active Orders 24 hr Category Date Time Status EKG Documentation Completion [RC] STAT Care 02/19/21 09:27 Active CORONAVIRUS COVID-19 ROSIBEL [MOLEC] Stat Lab 02/19/21 11:42 Ordered UA RFX MAY AND CULT IF INDIC [URIN] Stat Lab 02/19/21 10:50 Ordered Azithromycin [Zithromax] 500 mg Med 02/19/21 11:33 Active Sodium Chloride 0.9% [Normal Saline (AdvBag)] 250 ml IV ONETIME Sodium Chloride 0.9% [Saline Flush] Med 02/19/21 09:27 Active 10 ml FLUSH ASDIRECTED PRN cefTRIAXone [Rocephin] 2 gm Med 02/19/21 11:45 Active Sodium Chloride 0.9% [Normal Saline] 100 ml IV Q24H Saline Lock Insert [OM.PC] Stat Oth 02/19/21 09:27 Ordered Medication Orders Azithromycin 500 mg/ Sodium (Chloride) 250 mls @ 250 mls/hr IV ONETIME ONE Stop: 02/19/21 12:32 Ceftriaxone Sodium 2 gm/ (Sodium Chloride) 100 mls @ 200 mls/hr IV Q24H RL Sodium Chloride (Sodium Chloride 0.9% 10 Ml Syringe) 10 ml FLUSH ASDIRECTED PRN PRN Reason: Keep Vein Open Last Admin: 02/19/21 09:39 Dose: 10 ml Documented by: SOLO Labs: Laboratory Tests 02/19/21 02/19/21 02/19/21 Range/Units 09:24 09:24 09:24 WBC 8.09 (3.98-10.04) K/mm3 RBC 3.88 L (3.98-5.22) M/mm3 Hgb 11.7 (11.2-15.7) gm/dl Hct 38.1 (34.1-44.9) % MCV 98.2 H D (79.4-94.8) fl MCH 30.2 (25.6-32.2) pg MCHC 30.7 L (32.2-35.5) g/dl RDW Std Deviation 48.2 H (36.4-46.3) fL Plt Count 221 (182-369) K/mm3 MPV 9.6 (9.4-12.3) fl Neut % (Auto) 76.8 H (34.0-71.1) % Lymph % (Auto) 8.3 L (19.3-51.7) % [place] % (Auto) 12.0 (4.7-12.5) % Eos % (Auto) 2.1 (0.7-5.8) Baso % (Auto) 0.4 (0.1-1.2) % Neut # (Auto) 6.22 H (1.56-6.13) K/mm3 Lymph # (Auto) 0.67 L (1.18-3.74) K/mm3 [place] # (Auto) 0.97 H (0.24-0.36) K/mm3 Eos # (Auto) 0.17 (0.04-0.36) K/mm3 Baso # (Auto) 0.03 (0.01-0.08) K/mm3 Manual Slide Review Abnormal smear Sodium 141 (136-145) mEq/L Potassium 4.2 (3.5-5.1) mEq/L Chloride 105 (98-107) mEq/L Carbon Dioxide 27 (21-32) mEq/L Anion Gap 13.2 (5-15) BUN 30 H (7-18) mg/dL Creatinine 1.4 H (0.55-1.02) mg/dL Est Cr Clr Drug Dosing 25.47 mL/min Estimated GFR (MDRD) 36 (>60) mL/min BUN/Creatinine Ratio 21.4 H (14-18) Glucose 131 H (70-99) mg/dL Calcium 8.4 L (8.5-10.1) mg/dL Magnesium 1.8 (1.8-2.4) mg/dL Total Bilirubin 0.6 (0.2-1.0) mg/dL AST 92 H (15-37) U/L ALT 22 (14-59) U/L Alkaline Phosphatase 94 (46-116) U/L Troponin I < 0.017 (0.00-0.056) ng/mL C-Reactive Protein 11.3 H* (<1.0) mg/dL NT-Pro-B Natriuret Pep 1491 H (0-450) pg/mL Total Protein 6.4 (6.4-8.2) g/dl Albumin 3.0 L (3.4-5.0) g/dl Globulin 3.4 gm/dL Albumin/Globulin Ratio 0.9 L (1-2) TSH 3rd Generation 2.983 (0.358-3.74) uIU/mL Meds: Medications Generic Name Dose Route Start Last Admin Trade Name Freq PRN Reason Stop Dose Admin Azithromycin 500 mg/ Sodium 250 mls @ 250 mls/hr 02/19/21 11:33 Chloride IV 02/19/21 12:32 ONETIME ONE Ceftriaxone Sodium 2 gm/ 100 mls @ 200 mls/hr 02/19/21 11:45 Sodium Chloride IV Q24H RL Sodium Chloride 10 ml 02/19/21 09:27 02/19/21 09:39 Sodium Chloride 0.9% 10 Ml Syringe FLUSH 10 ml ASDIRECTED PRN Administration Keep Vein Open Discontinued Medications Generic Name Dose Route Start Last Admin Trade Name Freq PRN Reason Stop Dose Admin Diltiazem HCl 20 mg 02/19/21 09:41 02/19/21 09:47 Diltiazem 50 Mg/10 Ml Sdv IVPUSH 02/19/21 09:42 10 mg ONETIME ONE Administration Furosemide 40 mg 02/19/21 11:33 02/19/21 11:45 Furosemide 40 Mg/4 Ml Vial IVPUSH 02/19/21 11:34 40 mg NOW ONE Administration Magnesium Citrate 296 ml 02/19/21 11:08 Magnesium Citrate Solution 296 Ml Bottle PO 02/19/21 11:09 ONETIME ONE Metoprolol Tartrate 5 mg 02/19/21 10:33 02/19/21 10:37 Metoprolol Tartrate 5 Mg/5 Ml Sdv IVPUSH 02/19/21 10:34 5 mg ONETIME ONE Administration - Re-Assessments/Exams Free Text/Narrative Re-Assessment/Exam: 02/19/21 10:34 The patient's case with Dr. Santos and he recommends giving the patient metoprolol 5 mg IV instead of repeating Cardizem 10 mg bolus. Since heart rate is still in the 120s in an atrial fibrillation rhythm. 02/19/21 11:28 Neurologist impression portable view of the chest: 1. Slight density within the right lung base either due to atelectasis or minimal pneumonia. 2. Cardiomegaly with pacemaker. 3. Bone findings which are age-related as described. Radiologist impression supine and upright views of the abdomen: Mitral annulus calcification is seen. Pacemaker is noted. Possible minimal bilateral pleural effusions are present. Mild's increased stool is seen throughout the colon. Phleboliths are noted within the pelvis. Scattered tip degenerative changes noted within the spine. No free air is seen. I have ordered for the patient to receive half bottle of magnesium citrate. I also feel like the patient warrants a hospital stay due to her new onset congestive heart failure and right lower lobe pneumonia. She could also have a swallowing evaluation while in the hospital. The case was discussed with , hospitalist and he has agreed to accept her as an admit inpatient. He request that I start the patient on Rocephin and Zithromax to treat the pneumonia. I will also give her 1 dose of IV Lasix 40 mg now. Departure - Departure Time of Disposition: 11:49 Disposition: Admitted As Inpatient 65 Condition: Fair Clinical Impression: Pneumonia Qualifiers: Pneumonia type: due to unspecified organism Laterality: right Lung location: lower lobe of lung Qualified Code(s): J18.9 - Pneumonia, unspecified organism CHF (congestive heart failure) Qualifiers: Heart failure type: unspecified Heart failure chronicity: acute Qualified Code(s): I50.9 - Heart failure, unspecified Referrals: Emily Carrillo MD [Primary Care Provider] - Forms: ED Department Discharge Sepsis Event Note (ED) - Evaluation Sepsis Screening Result: No Definite Risk - Focused Exam Vital Signs: Vital Signs Temp Pulse Pulse Resp BP BP Pulse Ox 02/19/21 10:37 117 H 106/71 02/19/21 09:26 97.5 F 140 H 20 135/89 96 - My Orders Last 24 Hours: My Active Orders 02/19/21 09:27 EKG Documentation Completion [RC] STAT Sodium Chloride 0.9% [Saline Flush] 10 ml FLUSH ASDIRECTED PRN Saline Lock Insert [OM.PC] Stat 02/19/21 10:50 UA RFX MAY AND CULT IF INDIC [URIN] Stat 02/19/21 11:33 Azithromycin [Zithromax] 500 mg Sodium Chloride 0.9% [Normal Saline (AdvBag)] 250 ml IV ONETIME 02/19/21 11:42 CORONAVIRUS COVID-19 ROSIBEL [MOLEC] Stat 02/19/21 11:45 cefTRIAXone [Rocephin] 2 gm Sodium Chloride 0.9% [Normal Saline] 100 ml IV Q24H - Assessment/Plan Last 24 Hours: My Active Orders 02/19/21 09:27 EKG Documentation Completion [RC] STAT Sodium Chloride 0.9% [Saline Flush] 10 ml FLUSH ASDIRECTED PRN Saline Lock Insert [OM.PC] Stat 02/19/21 10:50 UA RFX MAY AND CULT IF INDIC [URIN] Stat 02/19/21 11:33 Azithromycin [Zithromax] 500 mg Sodium Chloride 0.9% [Normal Saline (AdvBag)] 250 ml IV ONETIME 02/19/21 11:42 CORONAVIRUS COVID-19 ROSIBEL [MOLEC] Stat 02/19/21 11:45 cefTRIAXone [Rocephin] 2 gm Sodium Chloride 0.9% [Normal Saline] 100 ml IV Q24H
[2021-02-19] MEDS ORDERED: Metoprolol Tartrate 5 MG/5 ML SDV IVPUSH ONE (10:33)
--- NOTE | 2021-02-19 11:12 | CR ---
Abdomen: Supine and upright views of the abdomen were obtained. Comparison: Prior abdominal x-ray of 08/26/15. Mitral annulus calcification is seen. Pacemaker is noted. Possible minimal bilateral pleural effusions are present. Mild increased stool is seen throughout the colon. Phleboliths are noted within the pelvis. Scattered degenerative change is noted within the spine. No free air is seen. Impression: 1. Multiple findings as noted above. Diagnostic code #2
[2021-02-19] MEDS ORDERED: Furosemide 40 MG/4 ML VIAL IVPUSH ONE (11:33)
[2021-02-19] MEDS ORDERED: Azithromycin 500 MG in Sodium Chloride 0.9% 250 ML IV ONE (11:33)
[2021-02-19] MEDS ORDERED: cefTRIAXone 2 GM in Sodium Chloride 0.9% 100 ML IV SCH (11:45)
[2021-02-19] MEDS ORDERED: Ondansetron 4 MG Tab.DIS PO PRN (11:46)
[2021-02-19] MEDS ORDERED: Albuterol/Ipratropium 3.0-0.5 MG/3 ML Neb Soln NEB PRN (11:46)
[2021-02-19] MEDS ORDERED: Magnesium Hydroxide 400 MG/5 ML Susp 30 ML Cup PO PRN (11:46)
[2021-02-19] MEDS ORDERED: Ondansetron 4 MG/2 ML SDV IV PRN (11:46)
[2021-02-19] MEDS ORDERED: Non-Formulary Medication 1 Each (Omeprazole Magnesium [Prilosec Otc] 20 MG Tablet.Dr) PO PRN (11:53)
[2021-02-19] MEDS ORDERED: PSYLLIUM HUSK 660 GM PO PRN (11:53)
[2021-02-19] MEDS ORDERED: Non-Formulary Medication 1 Each (Melatonin [Melatonin] 3 MG Capsule) PO PRN (11:53)
[2021-02-19] MEDS ORDERED: Azithromycin 500 MG in Sodium Chloride 0.9% 250 ML IV SCH (12:00)
[2021-02-19] MEDS ORDERED: Metoprolol Tartrate 25 MG Tab PO SCH (12:00)
--- NOTE | 2021-02-19 12:00 | PCM.HP.2 ---
H&P History of Present Illness - General Date of Service: 02/19/21 Admit Problem/Dx: Admission Diagnosis/Problem Admission Diagnosis/Problem Sepsis, Pneumonia, Atrial Fibrillation with RVR Source of Information: Patient, Family, Provider History Limitations: Reports: No Limitations - History of Present Illness Initial Comments - Free Text/Narative: Patient is an 86-year-old female with a past medical history as listed below who presents to the [facility] emergency department due to generally not feeling well. Patient endorses a history of a cough since this past weekend. She has not had any sick contacts. She has been in the house for the past 2 weeks. Cough has been progressively getting worse and occasionally productive for some yellow sputum. No hemoptysis noted. The patient has not felt febrile. She denies any other flulike symptoms. Denies myalgias or arthralgias. Denies any nausea or vomiting. Continues to have issues with constipation which is an ongoing problem for her. She has been taking stool softeners as well as milk of magnesia to little to no effect. Her last bowel movement was 4 days ago. She has had an occasional discomfort in the abdomen associated with her constipation. No other bowel habit changes. No difficulties with voiding. She denies any postnasal drip, sore throat. She denies any chest pain, chest pressure or pleurisy. Her states that she became weak over the past 24 hours to the point where she has not been able to get out of bed. This worried him enough to have her evaluated in the hospital. Upon evaluation in the emergency department. She was tachypneic and tachycardic with atrial fibrillation (with RVR). She appeared weak but nontoxic. Imaging was notable for a slight infiltrate in the right base. Abdominal KUB notable for significant amount of stool. For her atrial fibrillation with RVR as she had a pulse in the 130s, she was given 1 dose of 10 mg IV Cardizem to which she responded. Afterwards, she was given her home metoprolol dose. Patient was given Rocephin and azithromycin at my discretion upon discussion with the emergency department. Patient was then referred to the internal medicine service for further work-up and management. Of note, the patient was appearing comfortable and not on supplemental oxygen upon entering the room. A 14 point review of systems was reviewed with the patient and her and only pertinent for the above information. CODE STATUS: Reviewed and she wishes to be DNR/DNI. - Related Data Allergies/Adverse Reactions: Allergies Allergy/AdvReac Type Severity Reaction Status Date / Time No Known Allergies Allergy Verified 02/19/21 09:23 Home Medications: Home Meds Fluticasone Propionate [Flonase] 1 dose NS DAILY 06/08/19 [History] Calcium Carbonate/Vitamin D3 [Calcium Carbonate/Vitamin D 600 MG-200 Unit] 1 tab PO DAILY 09/24/19 [History] Cyanocobalamin (Vitamin B-12) [B-12] 1,000 mcg PO DAILY 09/24/19 [History] Carbidopa/Levodopa [Sinemet 25-100 mg Tablet] 2 tab PO 5XDAY 05/30/20 [History] Melatonin 6 mg PO BEDTIME PRN 05/30/20 [History] Metoprolol Succinate 25 mg PO DAILY 05/30/20 [History] Multivitamin [Poly-Vitamin] 1 tab PO DAILY 05/30/20 [History] Omeprazole Magnesium [Prilosec Otc] 20 mg PO DAILY PRN 05/30/20 [History] Potassium Chloride 20 meq PO DAILY 05/30/20 [History] Psyllium Husk [Metamucil] 1 dose PO DAILY PRN 05/30/20 [History] Rosuvastatin [Crestor] 10 mg PO DAILY 05/30/20 [History] Ondansetron [Zofran ODT] 4 mg PO TID 08/04/20 [History] amLODIPine [Norvasc] 5 mg PO DAILY 08/04/20 [History] Apixaban [Eliquis] 1 tab PO DAILY 02/19/21 [History] Past Medical History HEENT History: Reports: Cataract, Impaired Vision Cardiovascular History: Reports: Blood Clots/VTE/DVT, High Cholesterol, Hypertension, Pacemaker, Other (See Below) Other Cardiovascular History: SVT, varicose veins Respiratory History: Reports: None Gastrointestinal History: Reports: Chronic Constipation, GERD Other Gastrointestinal History: post op nausea and vomiting Genitourinary History: Reports: Other (See Below) Other Genitourinary History: CKDIII, proteinuria [employer] History: Reports: None Musculoskeletal History: Reports: Gout, Osteoarthritis, Osteoporosis, Other (See Below) Other Musculoskeletal History: restless leg syndrome, right wrist carpal tunnel Neurological History: Reports: Parkinson's, Other (See Below) Other Neuro History: acoustic nerve injury, chronic hemifacial spasm Psychiatric History: Reports: None Endocrine/Metabolic History: Reports: None Hematologic History: Reports: Anemia, Iron Deficiency Immunologic History: Reports: None Oncologic (Cancer) History: Reports: Colon Dermatologic History: Reports: Other (See Below) Other Dermatologic History: phlebitis and thrombophlebitis - Infectious Disease History Infectious Disease History: Reports: Chicken Pox, Measles, Mumps, Shingles - Past Surgical History Head Surgeries/Procedures: Reports: None HEENT Surgical History: Reports: Cataract Surgery, Tonsillectomy Cardiovascular Surgical History: Reports: None Respiratory Surgical History: Reports: None GI Surgical History: Reports: Cholecystectomy, Colon, Colonoscopy Female Surgical History: Reports: Hysterectomy Endocrine Surgical History: Reports: None Neurological Surgical History: Reports: None Musculoskeletal Surgical History: Reports: Knee Replacement Oncologic Surgical History: Reports: None Dermatological Surgical History: Reports: None Social & Family History - Family History Family Medical History: No Pertinent Family History - Tobacco Use Tobacco Use Status *Q: Never Tobacco User - Caffeine Use Caffeine Use: Reports: Coffee, Tea Caffeine Use Comment: 2 cups a day - Recreational Drug Use Recreational Drug Use: No - Living Situation & Occupation Living situation: Reports: Occupation: Retired H&P Review of Systems - Review of Systems: Review Of Systems: Comprehensive ROS is negative, except as noted in HPI. Exam - Exam Exam: See Below - Vital Signs Vital Signs: Last Vital Signs Temp 97.5 F 02/19/21 09:26 Pulse 117 H 02/19/21 10:37 Resp 20 02/19/21 09:26 BP 106/71 02/19/21 10:37 Pulse Ox 96 02/19/21 09:26 Weight: 147 lb - Exam Physical Exam Comments:: General: Awake and alert, in no apparent distress. Nontoxic-appearing. HEENT: Normocephalic, atraumatic. Extra ocular muscles intact. Pupils equal and reactive to light. Nares are patent. Oropharynx clear without erythema or exudate. Tongue is midline. 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 Neck: Supple without lymphadenopathy. No goiter. Trachea midline. Heart: Irregular rate and rhythm. Lightly tachycardic. S1 and S2 heard without murmur or extrasystoles. Lungs: Decreased breath sounds at the bases. No wheezing, rales, rhonchi. Abdomen: Soft, nontender, distended. Positive bowel sounds. No CVA tenderness. No suprapubic tenderness. Extremities: Warm and perfused. No clubbing, cyanosis, or edema. Integument: No obvious rash or jaundice. No lymphadenopathy. Neurologic: Cranial nerves II through XII grossly intact. No obvious gross motor or sensory deficits. Psychiatric: Normal mood and affect. - Patient Data Lab Results Last 24 hrs: Laboratory Results - last 24 hr 02/19/21 02/19/21 02/19/21 Range/Units 09:24 09:24 09:24 WBC 8.09 (3.98-10.04) K/mm3 RBC 3.88 L (3.98-5.22) M/mm3 Hgb 11.7 (11.2-15.7) gm/dl Hct 38.1 (34.1-44.9) % MCV 98.2 H D (79.4-94.8) fl MCH 30.2 (25.6-32.2) pg MCHC 30.7 L (32.2-35.5) g/dl RDW Std Deviation 48.2 H (36.4-46.3) fL Plt Count 221 (182-369) K/mm3 MPV 9.6 (9.4-12.3) fl Neut % (Auto) 76.8 H (34.0-71.1) % Lymph % (Auto) 8.3 L (19.3-51.7) % [place] % (Auto) 12.0 (4.7-12.5) % Eos % (Auto) 2.1 (0.7-5.8) Baso % (Auto) 0.4 (0.1-1.2) % Neut # (Auto) 6.22 H (1.56-6.13) K/mm3 Lymph # (Auto) 0.67 L (1.18-3.74) K/mm3 [place] # (Auto) 0.97 H (0.24-0.36) K/mm3 Eos # (Auto) 0.17 (0.04-0.36) K/mm3 Baso # (Auto) 0.03 (0.01-0.08) K/mm3 Manual Slide Review Abnormal smear Sodium 141 (136-145) mEq/L Potassium 4.2 (3.5-5.1) mEq/L Chloride 105 (98-107) mEq/L Carbon Dioxide 27 (21-32) mEq/L Anion Gap 13.2 (5-15) BUN 30 H (7-18) mg/dL Creatinine 1.4 H (0.55-1.02) mg/dL Est Cr Clr Drug Dosing 25.47 mL/min Estimated GFR (MDRD) 36 (>60) mL/min BUN/Creatinine Ratio 21.4 H (14-18) Glucose 131 H (70-99) mg/dL Calcium 8.4 L (8.5-10.1) mg/dL Magnesium 1.8 (1.8-2.4) mg/dL Total Bilirubin 0.6 (0.2-1.0) mg/dL AST 92 H (15-37) U/L ALT 22 (14-59) U/L Alkaline Phosphatase 94 (46-116) U/L Troponin I < 0.017 (0.00-0.056) ng/mL C-Reactive Protein 11.3 H* (<1.0) mg/dL NT-Pro-B Natriuret Pep 1491 H (0-450) pg/mL Total Protein 6.4 (6.4-8.2) g/dl Albumin 3.0 L (3.4-5.0) g/dl Globulin 3.4 gm/dL Albumin/Globulin Ratio 0.9 L (1-2) TSH 3rd Generation 2.983 (0.358-3.74) uIU/mL Result Diagrams: 02/19/21 09:24 02/19/21 09:24 #1 Interpretation EKG Date: 02/19/21 Rhythm: A-Fib P-Wave: Absent ST-T: Normal QT: Normal Sepsis Event Note - Evaluation Sepsis Screening Result: No Definite Risk Current Stage of Sepsis: Sepsis Possible Source of Sepsis: Pulmonary - Focused Exam Sepsis Event Note Statement: Focused Sepsis Exam Completed Vital Signs: Vital Signs Temp Pulse Pulse Resp BP BP Pulse Ox 02/19/21 10:37 117 H 106/71 02/19/21 09:26 97.5 F 140 H 20 135/89 96 Heart Sounds: Irregular Pulse Description: 2+ Normal Skin Exam (Focused Sepsis): Normal [place], [place] Date Exam was Performed: 02/19/21 Time Exam was Performed: 12:00 - Problem List (1) Parkinson disease SNOMED Code(s): 82757416 ICD Code: G20 - PARKINSON'S DISEASE Status: Acute Current Visit: Yes (2) Atrial fibrillation with RVR SNOMED Code(s): 844956277785089 ICD Code: I48.91 - UNSPECIFIED ATRIAL FIBRILLATION Status: Acute Current Visit: Yes (3) Pneumonia SNOMED Code(s): 335117296 ICD Code: J18.9 - PNEUMONIA, UNSPECIFIED ORGANISM Status: Acute Current Visit: Yes (4) Sepsis SNOMED Code(s): 27852193 ICD Code: A41.9 - SEPSIS, UNSPECIFIED ORGANISM Status: Acute Current Visit: Yes (5) CKD (chronic kidney disease), stage III SNOMED Code(s): 344019927 ICD Code: N18.30 - CHRONIC KIDNEY DISEASE, STAGE 3 UNSPECIFIED Status: Acute Current Visit: Yes (6) Constipation SNOMED Code(s): 26674679 ICD Code: K59.00 - CONSTIPATION, UNSPECIFIED Status: Acute Current Visit: No Problem List Initiated/Reviewed/Updated: Yes Orders Last 24hrs: Active Orders 24 hr Category Date Time Status Patient Status [ADT] Routine ADT 02/19/21 11:46 Ordered Antiembolic Devices [RC] PER UNIT ROUTINE Care 02/19/21 11:50 Ordered Cardiac Monitoring [RC] CONTINUOUS Care 02/19/21 11:48 Ordered EKG Documentation Completion [RC] STAT Care 02/19/21 09:27 Active Intake and Output [RC] QSHIFT Care 02/19/21 11:48 Ordered Oxygen Therapy [RC] PRN Care 02/19/21 11:46 Ordered Peripheral IV Care [RC] . DIRECTED Care 02/19/21 11:50 Ordered Pulse Oximetry [RC] CONTINUOUS Care 02/19/21 11:48 Ordered RT Aerosol Therapy [RC] ASDIRECTED Care 02/19/21 11:50 Ordered Up With Assistance [RC] ASDIRECTED Care 02/19/21 11:46 Ordered VTE/DVT Education [RC] PER UNIT ROUTINE Care 02/19/21 11:46 Ordered Vital Signs [RC] Q4H Care 02/19/21 11:46 Ordered BASIC METABOLIC PANEL,BMP [CHEM] DAILY Lab 02/20/21 12:00 Ordered BASIC METABOLIC PANEL,BMP [CHEM] DAILY Lab 02/21/21 12:00 Ordered BASIC METABOLIC PANEL,BMP [CHEM] DAILY Lab 02/22/21 12:00 Ordered BASIC METABOLIC PANEL,BMP [CHEM] DAILY Lab 02/23/21 12:00 Ordered BASIC METABOLIC PANEL,BMP [CHEM] DAILY Lab 02/24/21 12:00 Ordered CBC WITH AUTO DIFF [HEME] DAILY Lab 02/20/21 06:00 Ordered CBC WITH AUTO DIFF [HEME] DAILY Lab 02/21/21 06:00 Ordered CBC WITH AUTO DIFF [HEME] DAILY Lab 02/22/21 06:00 Ordered CBC WITH AUTO DIFF [HEME] DAILY Lab 02/23/21 06:00 Ordered CBC WITH AUTO DIFF [HEME] DAILY Lab 02/24/21 06:00 Ordered CBC WITH AUTO DIFF [HEME] DAILY Lab 02/25/21 06:00 Ordered CORONAVIRUS COVID-19 ROSIBEL [MOLEC] Stat Lab 02/19/21 11:42 Ordered RESPIRATORY CULT [MREF] Stat Lab 02/19/21 11:50 Ordered UA RFX MAY AND CULT IF INDIC [URIN] Stat Lab 02/19/21 10:50 Ordered Acetaminophen [TylenoL] Med 02/19/21 11:46 Ordered 650 mg PO Q4H PRN Albuterol/Ipratropium [DuoNeb 3.0-0.5 MG/3 ML] Med 02/19/21 11:46 Ordered 3 ml NEB Q4H PRN Apixaban [Eliquis] Med 02/20/21 09:00 Ordered 5 mg PO DAILY Azithromycin [Zithromax] 500 mg Med 02/19/21 11:33 Active Sodium Chloride 0.9% [Normal Saline (AdvBag)] 250 ml IV ONETIME Azithromycin [Zithromax] 500 mg Med 02/19/21 12:00 Ordered Sodium Chloride 0.9% [Normal Saline (AdvBag)] 250 ml IV Q24H Carbidopa/Levodopa [Sinemet 25-100 mg] Med 02/19/21 14:00 Ordered 2 tab PO 5XDAY Fluticasone Propionate [Flonase] Med 02/20/21 09:00 Ordered 1 dose JOAQUIN DAILY Magnesium Hydroxide [Milk of Magnesia] Med 02/19/21 11:46 Ordered 30 ml PO Q12H PRN Melatonin [Melatonin] Med 02/19/21 11:53 Ordered 6 mg PO BEDTIME PRN Metoprolol Tartrate [Lopressor] Med 02/19/21 12:00 Ordered 25 mg PO Q12H Omeprazole Magnesium [Prilosec Otc] Med 02/19/21 11:53 Ordered 20 mg PO DAILY PRN Ondansetron [Zofran ODT] Med 02/19/21 11:46 Ordered 4 mg PO Q4H PRN Ondansetron [Zofran] Med 02/19/21 11:46 Ordered 4 mg IV Q4H PRN Psyllium Husk [Metamucil] Med 02/19/21 11:53 Ordered 1 dose PO DAILY PRN Rosuvastatin [Crestor] Med 02/20/21 09:00 Ordered 10 mg PO DAILY Sodium Chloride 0.9% [Saline Flush] Med 02/19/21 09:27 Active 10 ml FLUSH ASDIRECTED PRN Sodium Chloride 0.9% [Saline Flush] Med 02/19/21 11:50 Ordered 10 ml FLUSH ASDIRECTED PRN amLODIPine [Norvasc] Med 02/20/21 09:00 Ordered 5 mg PO DAILY cefTRIAXone [Rocephin] 1 gm Med 02/19/21 12:00 Ordered Sodium Chloride 0.9% [Normal Saline] 100 ml IV Q24H cefTRIAXone [Rocephin] 2 gm Med 02/19/21 11:45 Active Sodium Chloride 0.9% [Normal Saline] 100 ml IV Q24H polyethylene glycoL 3350 [MiraLAX] Med 02/19/21 11:46 Ordered 17 gm PO DAILY PRN Peripheral IV Insertion Adult [OM.PC] Routine Oth 02/19/21 11:46 Ordered Saline Lock Insert [OM.PC] Routine Oth 02/19/21 11:46 Ordered Saline Lock Insert [OM.PC] Stat Ot 02/19/21 09:27 Ordered Sequential Compression Device [OM.PC] Per Unit Routine Oth 02/19/21 11:49 Ordered Resuscitation Status Routine Resus Stat 02/19/21 11:46 Ordered Medication Orders Acetaminophen (Acetaminophen 325 Mg Tab) 650 mg PO Q4H PRN PRN Reason: Pain (Mild 1-3)/fever Albuterol/Ipratropium (Albuterol/Ipratropium 3.0-0.5 Mg/3 Ml Neb Soln) 3 ml NEB Q4H PRN PRN Reason: Shortness Of Breath/wheezing Amlodipine Besylate (Amlodipine 5 Mg Tab) 5 mg PO DAILY RL Apixaban (Apixaban 5 Mg Tab) 5 mg PO DAILY RL Carbidopa/Levodopa (Carbidopa/Levodopa 25-100 Mg Tab) 2 tab PO 5XDAY RL Fluticasone Propionate (Fluticasone Propionate Nasal [place] 16 Gm Bottle) gm JOAQUIN DAILY RL Azithromycin 500 mg/ Sodium (Chloride) 250 mls @ 250 mls/hr IV ONETIME ONE Stop: 02/19/21 12:32 Ceftriaxone Sodium 2 gm/ (Sodium Chloride) 100 mls @ 200 mls/hr IV Q24H RL Ceftriaxone Sodium 1 gm/ (Sodium Chloride) 100 mls @ 200 mls/hr IV Q24H RL Azithromycin 500 mg/ Sodium (Chloride) 250 mls @ 250 mls/hr IV Q24H RL Magnesium Hydroxide (Magnesium Hydroxide 400 Mg/5 Ml Susp 30 Ml Cup) 30 ml PO Q12H PRN PRN Reason: Constipation Metoprolol Tartrate (Metoprolol Tartrate 25 Mg Tab) 25 mg PO Q12H [facility] Non-Formulary Medication (Melatonin [Melatonin]) 6 mg PO BEDTIME PRN PRN Reason: Insomnia Non-Formulary Medication (Omeprazole Magnesium [Prilosec Otc]) 20 mg PO DAILY PRN PRN Reason: gi upset Non-Formulary Medication (Psyllium Husk [Metamucil]) 1 dose PO DAILY PRN PRN Reason: Constipation Ondansetron HCl (Ondansetron 4 Mg Tab.Dis) 4 mg PO Q4H PRN PRN Reason: nausea, able to take PO Ondansetron HCl (Ondansetron 4 Mg/2 Ml Sdv) 4 mg IV Q4H PRN PRN Reason: Nausea/Vomiting Polyethylene Glycol (Polyethylene Glycol 3350 Powder 17 Gm Packet) 17 gm PO DAILY PRN PRN Reason: Constipation Rosuvastatin Calcium (Rosuvastatin 10 Mg Tab) 10 mg PO DAILY LR Sodium Chloride (Sodium Chloride 0.9% 10 Ml Syringe) 10 ml FLUSH ASDIRECTED PRN PRN Reason: Keep Vein Open Last Admin: 02/19/21 09:39 Dose: 10 ml Documented by: FULTCON Sodium Chloride (Sodium Chloride 0.9% 10 Ml Syringe) 10 ml FLUSH ASDIRECTED PRN PRN Reason: Keep Vein Open Assessment/Plan Comment:: 1. Sepsis (nonsevere, nonshock). As defined by tachypnea, tachycardia and source of infection being pneumonic. Patient appears to be euvolemic. Monitor volume status. Intravascular volume repletion if necessary. We will check lactic acid as per protocol. Empiric antibiotics with Rocephin and azithromycin. 2. Community-acquired right lower lobe pneumonia. Empiric antibiotics as mentioned above. Respiratory therapy consult. Bronchodilators as necessary. Incentive spirometry to be encouraged. Not requiring supplemental oxygen at current time. Sputum culture if possible. 3. Atrial fibrillation with rapid ventricular response. Likely due to missing a dose of medication this morning as well as systemic duress from problems 1 and 2. We will continue metoprolol but will switch to metoprolol tartrate twice daily. Reinstate Toprol when less ill. For additional control, if necessary, will use calcium channel eva as she responded to it in the emergency department. Patient is on systemic anticoagulation with Eliquis which we will continue. Echocardiogram has been ordered. 4. Parkinson's disease. Continue Sinemet. 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 5. Constipation. Daily bowel regimen with additional as needed medications as necessary. Enema at the time of admission. 6. Elevated BNP. Echocardiogram ordered to evaluate status of ejection fraction and overall function. CODE STATUS: DNR/DNI. DVT prophylaxis; systemic anticoagulation with Eliquis. - Mortality Measure Prognosis:: Good
[2021-02-19] MEDS ORDERED: Psyllium Husk Powder Sugar Free 5.85 GM Packet PO PRN (12:11)
[2021-02-19] MEDS ORDERED: Pantoprazole 40 MG Tab.CR PO PRN (12:12)
[2021-02-19] MEDS: cefTRIAXone 1 GM in Sodium Chloride 0.9% 100 ML IV SCH ×2 (12:30→13:00)
[2021-02-19] MEDS: Magnesium Citrate Solution 296 ML Bottle PO ONE ×2 (12:32→12:56)
[2021-02-19] MEDS: Polyethylene Glycol 3350 Powder 17 GM Packet PO PRN (12:32)
[2021-02-19] MEDS ORDERED: Carbidopa/Levodopa 25-100 MG Tab PO SCH (14:00)
[2021-02-19] MEDS ORDERED: Metoprolol Tartrate 25 MG Tab PO ONE ×2 (14:30→23:00)
[2021-02-19] MEDS: Carbidopa/Levodopa 25-100 MG Tab PO SCH ×3 (14:46→21:31)
[2021-02-19] MEDS ORDERED: Melatonin 3 MG Tab PO PRN (21:00)
[2021-02-19] MEDS: Apixaban 5 MG Tab PO SCH (21:31)
[2021-02-20] MEDS: Carbidopa/Levodopa 25-100 MG Tab PO SCH ×5 (05:02→21:26)
[2021-02-20] MEDS: Fluticasone Propionate Nasal Spray 16 GM Bottle NASBOTH SCH (08:30)
[2021-02-20] MEDS: Metoprolol Tartrate 25 MG Tab PO SCH ×2 (08:30→21:27)
[2021-02-20] MEDS: Rosuvastatin 10 MG Tab PO SCH (08:30)
[2021-02-20] MEDS: Apixaban 5 MG Tab PO SCH ×2 (08:31→21:27)
--- NOTE | 2021-02-20 08:42 | PCM.PN ---
- General Info Date of Service: 02/20/21 Admission Dx/Problem (Free Text): Admission Diagnosis/Problem Admission Diagnosis/Problem Sepsis, Pneumonia, Atrial Fibrillation with RVR Subjective Update: No acute events overnight. No new nursing concerns. Patient seen and examined at bedside. Patient states that she continues to be weak but denies any chest pain, chest pressure, pleurisy, nausea/vomiting, abdominal discomfort or difficulties with voiding. Nursing has noted how weak she is. She requires a lot of assistance. Seen by speech therapy and diet recommendations has been ordered. Tolerating diet without complications. - Patient Data Vitals - Most Recent: Last Vital Signs Temp 98.1 F 02/20/21 08:09 Pulse 63 02/20/21 08:30 Resp 20 02/20/21 08:09 BP 123/66 02/20/21 08:30 Pulse Ox 93 L 02/20/21 08:09 Weight - Most Recent: 147 lb 12.8 oz I&O - Last 24 Hours: Intake & Output 02/19/21 02/20/21 02/20/21 22:59 06:59 14:59 Intake Total 0 240 Output Total 300 Balance 0 -60 Lab Results Last 24 Hours: Laboratory Results - last 24 hr 02/19/21 02/19/21 02/19/21 Range/Units 09:24 09:24 09:24 WBC 8.09 (3.98-10.04) K/mm3 RBC 3.88 L (3.98-5.22) M/mm3 Hgb 11.7 (11.2-15.7) gm/dl Hct 38.1 (34.1-44.9) % MCV 98.2 H D (79.4-94.8) fl MCH 30.2 (25.6-32.2) pg MCHC 30.7 L (32.2-35.5) g/dl RDW Std Deviation 48.2 H (36.4-46.3) fL Plt Count 221 (182-369) K/mm3 MPV 9.6 (9.4-12.3) fl Neut % (Auto) 76.8 H (34.0-71.1) % Lymph % (Auto) 8.3 L (19.3-51.7) % [place] % (Auto) 12.0 (4.7-12.5) % Eos % (Auto) 2.1 (0.7-5.8) Baso % (Auto) 0.4 (0.1-1.2) % Neut # (Auto) 6.22 H (1.56-6.13) K/mm3 Lymph # (Auto) 0.67 L (1.18-3.74) K/mm3 [place] # (Auto) 0.97 H (0.24-0.36) K/mm3 Eos # (Auto) 0.17 (0.04-0.36) K/mm3 Baso # (Auto) 0.03 (0.01-0.08) K/mm3 Manual Slide Review Abnormal smear Sodium 141 (136-145) mEq/L Potassium 4.2 (3.5-5.1) mEq/L Chloride 105 (98-107) mEq/L Carbon Dioxide 27 (21-32) mEq/L Anion Gap 13.2 (5-15) BUN 30 H (7-18) mg/dL Creatinine 1.4 H (0.55-1.02) mg/dL Est Cr Clr Drug Dosing 25.47 mL/min Estimated GFR (MDRD) 36 (>60) mL/min BUN/Creatinine Ratio 21.4 H (14-18) Glucose 131 H (70-99) mg/dL Lactic Acid (0.4-2.0) mmol/L Calcium 8.4 L (8.5-10.1) mg/dL Magnesium 1.8 (1.8-2.4) mg/dL Total Bilirubin 0.6 (0.2-1.0) mg/dL AST 92 H (15-37) U/L ALT 22 (14-59) U/L Alkaline Phosphatase 94 (46-116) U/L Troponin I < 0.017 (0.00-0.056) ng/mL C-Reactive Protein 11.3 H* (<1.0) mg/dL NT-Pro-B Natriuret Pep 1491 H (0-450) pg/mL Total Protein 6.4 (6.4-8.2) g/dl Albumin 3.0 L (3.4-5.0) g/dl Globulin 3.4 gm/dL Albumin/Globulin Ratio 0.9 L (1-2) TSH 3rd Generation 2.983 (0.358-3.74) uIU/mL Urine Color (Yellow) Urine Appearance (Clear) Urine pH (5.0-8.0) Ur Specific [place] (1.005-1.030) Urine Protein (Negative) Urine Glucose (UA) (Negative) Urine Ketones (Negative) Urine Occult Blood (Negative) Urine Nitrite (Negative) Urine Bilirubin (Negative) Urine Urobilinogen (0.2-1.0) Ur Leukocyte Esterase (Negative) Urine RBC (0-5) /hpf Urine WBC (0-5) /hpf Ur Epithelial Cells (0-5) /hpf Urine Bacteria (FEW) /hpf Urine Mucus (FEW) /hpf SARS-CoV-2 RNA (ROSIBEL) (NEGATIVE) 02/19/21 02/19/21 02/19/21 Range/Units 10:50 11:42 12:25 WBC (3.98-10.04) K/mm3 RBC (3.98-5.22) M/mm3 Hgb (11.2-15.7) gm/dl Hct (34.1-44.9) % MCV (79.4-94.8) fl MCH (25.6-32.2) pg MCHC (32.2-35.5) g/dl RDW Std Deviation (36.4-46.3) fL Plt Count (182-369) K/mm3 MPV (9.4-12.3) fl Neut % (Auto) (34.0-71.1) % Lymph % (Auto) (19.3-51.7) % [place] % (Auto) (4.7-12.5) % Eos % (Auto) (0.7-5.8) Baso % (Auto) (0.1-1.2) % Neut # (Auto) (1.56-6.13) K/mm3 Lymph # (Auto) (1.18-3.74) K/mm3 [place] # (Auto) (0.24-0.36) K/mm3 Eos # (Auto) (0.04-0.36) K/mm3 Baso # (Auto) (0.01-0.08) K/mm3 Manual Slide Review Sodium (136-145) mEq/L Potassium (3.5-5.1) mEq/L Chloride (98-107) mEq/L Carbon Dioxide (21-32) mEq/L Anion Gap (5-15) BUN (7-18) mg/dL Creatinine (0.55-1.02) mg/dL Est Cr Clr Drug Dosing mL/min Estimated GFR (MDRD) (>60) mL/min BUN/Creatinine Ratio (14-18) Glucose (70-99) mg/dL Lactic Acid 1.2 (0.4-2.0) mmol/L Calcium (8.5-10.1) mg/dL Magnesium (1.8-2.4) mg/dL Total Bilirubin (0.2-1.0) mg/dL AST (15-37) U/L ALT (14-59) U/L Alkaline Phosphatase (46-116) U/L Troponin I (0.00-0.056) ng/mL C-Reactive Protein (<1.0) mg/dL NT-Pro-B Natriuret Pep (0-450) pg/mL Total Protein (6.4-8.2) g/dl Albumin (3.4-5.0) g/dl Globulin gm/dL Albumin/Globulin Ratio (1-2) TSH 3rd Generation (0.358-3.74) uIU/mL Urine Color Yellow (Yellow) Urine Appearance Clear (Clear) Urine pH 6.0 (5.0-8.0) Ur Specific [place] 1.025 (1.005-1.030) Urine Protein 1+ H (Negative) Urine Glucose (UA) Negative (Negative) Urine Ketones Trace H (Negative) Urine Occult Blood Negative (Negative) Urine Nitrite Negative (Negative) Urine Bilirubin Negative (Negative) Urine Urobilinogen 1.0 (0.2-1.0) Ur Leukocyte Esterase Negative (Negative) Urine RBC 0-5 (0-5) /hpf Urine WBC 0-5 (0-5) /hpf Ur Epithelial Cells 0-5 (0-5) /hpf Urine Bacteria Not seen (FEW) /hpf Urine Mucus Not seen (FEW) /hpf SARS-CoV-2 RNA (ROSIBEL) Negative (NEGATIVE) 02/20/21 02/20/21 Range/Units 05:54 05:54 WBC 7.19 (3.98-10.04) K/mm3 RBC 3.47 L (3.98-5.22) M/mm3 Hgb 10.6 L (11.2-15.7) gm/dl Hct 33.9 L (34.1-44.9) % MCV 97.7 H (79.4-94.8) fl MCH 30.5 (25.6-32.2) pg MCHC 31.3 L (32.2-35.5) g/dl RDW Std Deviation 47.4 H (36.4-46.3) fL Plt Count 228 (182-369) K/mm3 MPV 9.6 (9.4-12.3) fl Neut % (Auto) 76.9 H (34.0-71.1) % Lymph % (Auto) 9.0 L (19.3-51.7) % [place] % (Auto) 11.4 (4.7-12.5) % Eos % (Auto) 1.8 (0.7-5.8) Baso % (Auto) 0.3 (0.1-1.2) % Neut # (Auto) 5.53 (1.56-6.13) K/mm3 Lymph # (Auto) 0.65 L (1.18-3.74) K/mm3 [place] # (Auto) 0.82 H (0.24-0.36) K/mm3 Eos # (Auto) 0.13 (0.04-0.36) K/mm3 Baso # (Auto) 0.02 (0.01-0.08) K/mm3 Manual Slide Review Abnormal smear Sodium 141 (136-145) mEq/L Potassium 4.1 (3.5-5.1) mEq/L Chloride 105 (98-107) mEq/L Carbon Dioxide 30 (21-32) mEq/L Anion Gap 10.1 (5-15) BUN 30 H (7-18) mg/dL Creatinine 1.3 H (0.55-1.02) mg/dL Est Cr Clr Drug Dosing 27.43 mL/min Estimated GFR (MDRD) 39 (>60) mL/min BUN/Creatinine Ratio 23.1 H (14-18) Glucose 103 H (70-99) mg/dL Lactic Acid (0.4-2.0) mmol/L Calcium 8.1 L (8.5-10.1) mg/dL Magnesium (1.8-2.4) mg/dL Total Bilirubin (0.2-1.0) mg/dL AST (15-37) U/L ALT (14-59) U/L Alkaline Phosphatase (46-116) U/L Troponin I (0.00-0.056) ng/mL C-Reactive Protein (<1.0) mg/dL NT-Pro-B Natriuret Pep (0-450) pg/mL Total Protein (6.4-8.2) g/dl Albumin (3.4-5.0) g/dl Globulin gm/dL Albumin/Globulin Ratio (1-2) TSH 3rd Generation (0.358-3.74) uIU/mL Urine Color (Yellow) Urine Appearance (Clear) Urine pH (5.0-8.0) Ur Specific [place] (1.005-1.030) Urine Protein (Negative) Urine Glucose (UA) (Negative) Urine Ketones (Negative) Urine Occult Blood (Negative) Urine Nitrite (Negative) Urine Bilirubin (Negative) Urine Urobilinogen (0.2-1.0) Ur Leukocyte Esterase (Negative) Urine RBC (0-5) /hpf Urine WBC (0-5) /hpf Ur Epithelial Cells (0-5) /hpf Urine Bacteria (FEW) /hpf Urine Mucus (FEW) /hpf SARS-CoV-2 RNA (ROSIBEL) (NEGATIVE) Med Orders - Current: Current Medications Acetaminophen (Acetaminophen 325 Mg Tab) 650 mg PO Q4H PRN PRN Reason: Pain (Mild 1-3)/fever Albuterol/Ipratropium (Albuterol/Ipratropium 3.0-0.5 Mg/3 Ml Neb Soln) 3 ml NEB Q4H PRN PRN Reason: Shortness Of Breath/wheezing Amlodipine Besylate (Amlodipine 5 Mg Tab) 5 mg PO DAILY [facility] Apixaban (Apixaban 5 Mg Tab) 5 mg PO BID [facility] Last Admin: 02/20/21 08:31 Dose: 5 mg Documented by: Carbidopa/Levodopa (Carbidopa/Levodopa 25-100 Mg Tab) 2 tab PO 5XDAY [facility] Last Admin: 02/20/21 05:02 Dose: 2 tab Documented by: Fluticasone Propionate (Fluticasone Propionate Nasal [place] 16 Gm Bottle) 0 gm NASBOTH DAILY [facility] Last Admin: 02/20/21 08:30 Dose: 1 spray Documented by: Azithromycin 500 mg/ Sodium (Chloride) 250 mls @ 250 mls/hr IV Q24H [facility] Ceftriaxone Sodium 1 gm/ (Sodium Chloride) 100 mls @ 200 mls/hr IV Q24H [facility] Magnesium Hydroxide (Magnesium Hydroxide 400 Mg/5 Ml Susp 30 Ml Cup) 30 ml PO Q12H PRN PRN Reason: Constipation Melatonin (Melatonin 3 Mg Tab) 6 mg PO BEDTIME PRN PRN Reason: Insomnia Metoprolol Tartrate (Metoprolol Tartrate 25 Mg Tab) 25 mg PO Q12H [facility] Last Admin: 02/20/21 08:30 Dose: 25 mg Documented by: Ondansetron HCl (Ondansetron 4 Mg Tab.Dis) 4 mg PO Q4H PRN PRN Reason: nausea, able to take PO Ondansetron HCl (Ondansetron 4 Mg/2 Ml Sdv) 4 mg IV Q4H PRN PRN Reason: Nausea/Vomiting Pantoprazole Sodium (Pantoprazole 40 Mg Tab.Cr) 40 mg PO DAILY PRN PRN Reason: gi upset Polyethylene Glycol (Polyethylene Glycol 3350 Powder 17 Gm Packet) 17 gm PO DAILY PRN PRN Reason: Constipation Last Admin: 02/19/21 12:32 Dose: 17 gm Documented by: Psyllium Husk (Psyllium Husk Powder Sugar Free 5.85 Gm Packet) 1 pkt PO DAILY PRN PRN Reason: Constipation Rosuvastatin Calcium (Rosuvastatin 10 Mg Tab) 10 mg PO DAILY [facility] Last Admin: 02/20/21 08:30 Dose: 10 mg Documented by: Sodium Chloride (Sodium Chloride 0.9% 10 Ml Syringe) 10 ml FLUSH ASDIRECTED PRN PRN Reason: Keep Vein Open Discontinued Medications Amlodipine Besylate (Amlodipine 5 Mg Tab) 5 mg PO DAILY [facility] Apixaban (Apixaban 5 Mg Tab) 5 mg PO DAILY [facility] Carbidopa/Levodopa (Carbidopa/Levodopa 25-100 Mg Tab) 2 tab PO 5XDAY [facility] Diltiazem HCl (Diltiazem 50 Mg/10 Ml Sdv) 20 mg IVPUSH ONETIME ONE Stop: 02/19/21 09:42 Last Admin: 02/19/21 09:47 Dose: 10 mg Documented by: Furosemide (Furosemide 40 Mg/4 Ml Vial) 40 mg IVPUSH NOW ONE Stop: 02/19/21 11:34 Last Admin: 02/19/21 11:45 Dose: 40 mg Documented by: Azithromycin 500 mg/ Sodium (Chloride) 250 mls @ 250 mls/hr IV ONETIME ONE Stop: 02/19/21 12:32 Last Admin: 02/19/21 13:13 Dose: 250 mls/hr Documented by: Ceftriaxone Sodium 2 gm/ (Sodium Chloride) 100 mls @ 200 mls/hr IV Q24H [facility] Last Admin: 02/19/21 12:31 Dose: 200 mls/hr Documented by: Ceftriaxone Sodium 1 gm/ (Sodium Chloride) 100 mls @ 200 mls/hr IV Q24H [facility] Last Admin: 02/19/21 13:00 Dose: Not Given Documented by: Azithromycin 500 mg/ Sodium (Chloride) 250 mls @ 250 mls/hr IV Q24H [facility] Last Admin: 02/19/21 13:00 Dose: Not Given Documented by: Magnesium Citrate (Magnesium Citrate Solution 296 Ml Bottle) 296 ml PO ONETIME ONE Stop: 02/19/21 11:09 Last Admin: 02/19/21 12:56 Dose: 296 ml Documented by: Metoprolol Succinate (Metoprolol Succinate 50 Mg Tab.Er) 50 mg PO DAILY [facility] Metoprolol Tartrate (Metoprolol Tartrate 5 Mg/5 Ml Sdv) 5 mg IVPUSH ONETIME ONE Stop: 02/19/21 10:34 Last Admin: 02/19/21 10:37 Dose: 5 mg Documented by: Metoprolol Tartrate (Metoprolol Tartrate 25 Mg Tab) 25 mg PO Q12H [facility] Last Admin: 02/19/21 14:52 Dose: Not Given Documented by: Metoprolol Tartrate (Metoprolol Tartrate 25 Mg Tab) 25 mg PO ONETIME ONE Stop: 02/19/21 14:31 Last Admin: 02/19/21 14:46 Dose: 25 mg Documented by: Metoprolol Tartrate (Metoprolol Tartrate 25 Mg Tab) 25 mg PO ONETIME ONE Stop: 02/19/21 23:01 Last Admin: 02/19/21 22:15 Dose: 25 mg Documented by: Non-Formulary Medication (Melatonin [Melatonin]) 6 mg PO BEDTIME PRN PRN Reason: Insomnia Non-Formulary Medication (Omeprazole Magnesium [Prilosec Otc]) 20 mg PO DAILY PRN PRN Reason: gi upset Non-Formulary Medication (Psyllium Husk [Metamucil]) 1 dose PO DAILY PRN PRN Reason: Constipation Rosuvastatin Calcium (Rosuvastatin 10 Mg Tab) 10 mg PO DAILY RL Sodium Chloride (Sodium Chloride 0.9% 10 Ml Syringe) 10 ml FLUSH ASDIRECTED PRN PRN Reason: Keep Vein Open Last Admin: 02/19/21 09:39 Dose: 10 ml Documented by: - Exam General: Alert Neck: Supple Lungs: Decreased Breath Sounds Cardiovascular: Regular Rate, Irregular Rhythm GI/Abdominal Exam: Normal Bowel Sounds, Soft Extremities: Normal Inspection Skin: Warm Neurological: Strength Equal Bilateral (But overall diminished), Sensation Intact. No: Normal Speech Psy/Mental Status: Normal Mood - Patient Data Lab Results Last 24 hrs: Laboratory Results - last 24 hr 02/19/21 02/19/21 02/19/21 Range/Units 09:24 09:24 09:24 WBC 8.09 (3.98-10.04) K/mm3 RBC 3.88 L (3.98-5.22) M/mm3 Hgb 11.7 (11.2-15.7) gm/dl Hct 38.1 (34.1-44.9) % MCV 98.2 H D (79.4-94.8) fl MCH 30.2 (25.6-32.2) pg MCHC 30.7 L (32.2-35.5) g/dl RDW Std Deviation 48.2 H (36.4-46.3) fL Plt Count 221 (182-369) K/mm3 MPV 9.6 (9.4-12.3) fl Neut % (Auto) 76.8 H (34.0-71.1) % Lymph % (Auto) 8.3 L (19.3-51.7) % [place] % (Auto) 12.0 (4.7-12.5) % Eos % (Auto) 2.1 (0.7-5.8) Baso % (Auto) 0.4 (0.1-1.2) % Neut # (Auto) 6.22 H (1.56-6.13) K/mm3 Lymph # (Auto) 0.67 L (1.18-3.74) K/mm3 [place] # (Auto) 0.97 H (0.24-0.36) K/mm3 Eos # (Auto) 0.17 (0.04-0.36) K/mm3 Baso # (Auto) 0.03 (0.01-0.08) K/mm3 Manual Slide Review Abnormal smear Sodium 141 (136-145) mEq/L Potassium 4.2 (3.5-5.1) mEq/L Chloride 105 (98-107) mEq/L Carbon Dioxide 27 (21-32) mEq/L Anion Gap 13.2 (5-15) BUN 30 H (7-18) mg/dL Creatinine 1.4 H (0.55-1.02) mg/dL Est Cr Clr Drug Dosing 25.47 mL/min Estimated GFR (MDRD) 36 (>60) mL/min BUN/Creatinine Ratio 21.4 H (14-18) Glucose 131 H (70-99) mg/dL Lactic Acid (0.4-2.0) mmol/L Calcium 8.4 L (8.5-10.1) mg/dL Magnesium 1.8 (1.8-2.4) mg/dL Total Bilirubin 0.6 (0.2-1.0) mg/dL AST 92 H (15-37) U/L ALT 22 (14-59) U/L Alkaline Phosphatase 94 (46-116) U/L Troponin I < 0.017 (0.00-0.056) ng/mL C-Reactive Protein 11.3 H* (<1.0) mg/dL NT-Pro-B Natriuret Pep 1491 H (0-450) pg/mL Total Protein 6.4 (6.4-8.2) g/dl Albumin 3.0 L (3.4-5.0) g/dl Globulin 3.4 gm/dL Albumin/Globulin Ratio 0.9 L (1-2) TSH 3rd Generation 2.983 (0.358-3.74) uIU/mL Urine Color (Yellow) Urine Appearance (Clear) Urine pH (5.0-8.0) Ur Specific [place] (1.005-1.030) Urine Protein (Negative) Urine Glucose (UA) (Negative) Urine Ketones (Negative) Urine Occult Blood (Negative) Urine Nitrite (Negative) Urine Bilirubin (Negative) Urine Urobilinogen (0.2-1.0) Ur Leukocyte Esterase (Negative) Urine RBC (0-5) /hpf Urine WBC (0-5) /hpf Ur Epithelial Cells (0-5) /hpf Urine Bacteria (FEW) /hpf Urine Mucus (FEW) /hpf SARS-CoV-2 RNA (ROSIBEL) (NEGATIVE) 02/19/21 02/19/21 02/19/21 Range/Units 10:50 11:42 12:25 WBC (3.98-10.04) K/mm3 RBC (3.98-5.22) M/mm3 Hgb (11.2-15.7) gm/dl Hct (34.1-44.9) % MCV (79.4-94.8) fl MCH (25.6-32.2) pg MCHC (32.2-35.5) g/dl RDW Std Deviation (36.4-46.3) fL Plt Count (182-369) K/mm3 MPV (9.4-12.3) fl Neut % (Auto) (34.0-71.1) % Lymph % (Auto) (19.3-51.7) % [place] % (Auto) (4.7-12.5) % Eos % (Auto) (0.7-5.8) Baso % (Auto) (0.1-1.2) % Neut # (Auto) (1.56-6.13) K/mm3 Lymph # (Auto) (1.18-3.74) K/mm3 [place] # (Auto) (0.24-0.36) K/mm3 Eos # (Auto) (0.04-0.36) K/mm3 Baso # (Auto) (0.01-0.08) K/mm3 Manual Slide Review Sodium (136-145) mEq/L Potassium (3.5-5.1) mEq/L Chloride (98-107) mEq/L Carbon Dioxide (21-32) mEq/L Anion Gap (5-15) BUN (7-18) mg/dL Creatinine (0.55-1.02) mg/dL Est Cr Clr Drug Dosing mL/min Estimated GFR (MDRD) (>60) mL/min BUN/Creatinine Ratio (14-18) Glucose (70-99) mg/dL Lactic Acid 1.2 (0.4-2.0) mmol/L Calcium (8.5-10.1) mg/dL Magnesium (1.8-2.4) mg/dL Total Bilirubin (0.2-1.0) mg/dL AST (15-37) U/L ALT (14-59) U/L Alkaline Phosphatase (46-116) U/L Troponin I (0.00-0.056) ng/mL C-Reactive Protein (<1.0) mg/dL NT-Pro-B Natriuret Pep (0-450) pg/mL Total Protein (6.4-8.2) g/dl Albumin (3.4-5.0) g/dl Globulin gm/dL Albumin/Globulin Ratio (1-2) TSH 3rd Generation (0.358-3.74) uIU/mL Urine Color Yellow (Yellow) Urine Appearance Clear (Clear) Urine pH 6.0 (5.0-8.0) Ur Specific [place] 1.025 (1.005-1.030) Urine Protein 1+ H (Negative) Urine Glucose (UA) Negative (Negative) Urine Ketones Trace H (Negative) Urine Occult Blood Negative (Negative) Urine Nitrite Negative (Negative) Urine Bilirubin Negative (Negative) Urine Urobilinogen 1.0 (0.2-1.0) Ur Leukocyte Esterase Negative (Negative) Urine RBC 0-5 (0-5) /hpf Urine WBC 0-5 (0-5) /hpf Ur Epithelial Cells 0-5 (0-5) /hpf Urine Bacteria Not seen (FEW) /hpf Urine Mucus Not seen (FEW) /hpf SARS-CoV-2 RNA (ROSIBEL) Negative (NEGATIVE) 02/20/21 02/20/21 Range/Units 05:54 05:54 WBC 7.19 (3.98-10.04) K/mm3 RBC 3.47 L (3.98-5.22) M/mm3 Hgb 10.6 L (11.2-15.7) gm/dl Hct 33.9 L (34.1-44.9) % MCV 97.7 H (79.4-94.8) fl MCH 30.5 (25.6-32.2) pg MCHC 31.3 L (32.2-35.5) g/dl RDW Std Deviation 47.4 H (36.4-46.3) fL Plt Count 228 (182-369) K/mm3 MPV 9.6 (9.4-12.3) fl Neut % (Auto) 76.9 H (34.0-71.1) % Lymph % (Auto) 9.0 L (19.3-51.7) % [place] % (Auto) 11.4 (4.7-12.5) % Eos % (Auto) 1.8 (0.7-5.8) Baso % (Auto) 0.3 (0.1-1.2) % Neut # (Auto) 5.53 (1.56-6.13) K/mm3 Lymph # (Auto) 0.65 L (1.18-3.74) K/mm3 [place] # (Auto) 0.82 H (0.24-0.36) K/mm3 Eos # (Auto) 0.13 (0.04-0.36) K/mm3 Baso # (Auto) 0.02 (0.01-0.08) K/mm3 Manual Slide Review Abnormal smear Sodium 141 (136-145) mEq/L Potassium 4.1 (3.5-5.1) mEq/L Chloride 105 (98-107) mEq/L Carbon Dioxide 30 (21-32) mEq/L Anion Gap 10.1 (5-15) BUN 30 H (7-18) mg/dL Creatinine 1.3 H (0.55-1.02) mg/dL Est Cr Clr Drug Dosing 27.43 mL/min Estimated GFR (MDRD) 39 (>60) mL/min BUN/Creatinine Ratio 23.1 H (14-18) Glucose 103 H (70-99) mg/dL Lactic Acid (0.4-2.0) mmol/L Calcium 8.1 L (8.5-10.1) mg/dL Magnesium (1.8-2.4) mg/dL Total Bilirubin (0.2-1.0) mg/dL AST (15-37) U/L ALT (14-59) U/L Alkaline Phosphatase (46-116) U/L Troponin I (0.00-0.056) ng/mL C-Reactive Protein (<1.0) mg/dL NT-Pro-B Natriuret Pep (0-450) pg/mL Total Protein (6.4-8.2) g/dl Albumin (3.4-5.0) g/dl Globulin gm/dL Albumin/Globulin Ratio (1-2) TSH 3rd Generation (0.358-3.74) uIU/mL Urine Color (Yellow) Urine Appearance (Clear) Urine pH (5.0-8.0) Ur Specific [place] (1.005-1.030) Urine Protein (Negative) Urine Glucose (UA) (Negative) Urine Ketones (Negative) Urine Occult Blood (Negative) Urine Nitrite (Negative) Urine Bilirubin (Negative) Urine Urobilinogen (0.2-1.0) Ur Leukocyte Esterase (Negative) Urine RBC (0-5) /hpf Urine WBC (0-5) /hpf Ur Epithelial Cells (0-5) /hpf Urine Bacteria (FEW) /hpf Urine Mucus (FEW) /hpf SARS-CoV-2 RNA (ROSIBEL) (NEGATIVE) Result Diagrams: 02/20/21 05:54 02/20/21 05:54 Sepsis Event Note - Evaluation Sepsis Screening Result: No Definite Risk - Focused Exam Vital Signs: Vital Signs Temp Pulse Resp BP Pulse Ox 02/20/21 08:30 63 123/66 02/20/21 08:09 98.1 F 63 20 123/66 93 L 02/20/21 03:03 97.9 F 67 14 137/68 95 02/19/21 22:15 109 H 111/60 02/19/21 21:32 97.9 F 109 H 11 L 111/60 95 - Problem List & Annotations (1) Parkinson disease SNOMED Code(s): 48955468 Code(s): G20 - PARKINSON'S DISEASE Status: Acute Current Visit: Yes (2) Atrial fibrillation with RVR SNOMED Code(s): 922212720530138 Code(s): I48.91 - UNSPECIFIED ATRIAL FIBRILLATION Status: Acute Current Visit: Yes (3) Pneumonia SNOMED Code(s): 926227541 Code(s): J18.9 - PNEUMONIA, UNSPECIFIED ORGANISM Status: Acute Current Visit: Yes (4) Sepsis SNOMED Code(s): 71004170 Code(s): A41.9 - SEPSIS, UNSPECIFIED ORGANISM Status: Acute Current Visit: Yes (5) CKD (chronic kidney disease), stage III SNOMED Code(s): 687868255 Code(s): N18.30 - CHRONIC KIDNEY DISEASE, STAGE 3 UNSPECIFIED Status: Acute Current Visit: Yes (6) Constipation SNOMED Code(s): 35818108 Code(s): K59.00 - CONSTIPATION, UNSPECIFIED Status: Acute Current Visit: No - Problem List Review Problem List Initiated/Reviewed/Updated: Yes - My Orders Last 24 Hours: My Active Orders 02/19/21 11:46 Patient Status [ADT] Routine Oxygen Therapy [RC] PRN Up With Assistance [RC] ASDIRECTED VTE/DVT Education [RC] PER UNIT ROUTINE Vital Signs [RC] 0400,1000,1600,2200 Acetaminophen [TylenoL] 650 mg PO Q4H PRN Albuterol/Ipratropium [DuoNeb 3.0-0.5 MG/3 ML] 3 ml NEB Q4H PRN Magnesium Hydroxide [Milk of Magnesia] 30 ml PO Q12H PRN Ondansetron [Zofran ODT] 4 mg PO Q4H PRN Ondansetron [Zofran] 4 mg IV Q4H PRN polyethylene glycoL 3350 [MiraLAX] 17 gm PO DAILY PRN Peripheral IV Insertion Adult [OM.PC] Routine Saline Lock Insert [OM.PC] Routine Resuscitation Status Routine 02/19/21 11:48 Cardiac Monitoring [RC] CONTINUOUS Intake and Output [RC] 04,16 Pulse Oximetry [RC] CONTINUOUS 02/19/21 11:49 Sequential Compression Device [OM.PC] Per Unit Routine 02/19/21 11:50 Antiembolic Devices [RC] PER UNIT ROUTINE RT Aerosol Therapy [RC] ASDIRECTED RESPIRATORY CULT [MREF] Stat Sodium Chloride 0.9% [Saline Flush] 10 ml FLUSH ASDIRECTED PRN 02/19/21 12:11 Psyllium Husk/Aspartame [Metamucil Sugar Free] 1 pkt PO DAILY PRN 02/19/21 12:12 Pantoprazole [ProTONIX] 40 mg PO DAILY PRN 02/19/21 12:15 DRIVER EXAMINER Evaluation and Treatment [CONS] Routine 02/19/21 14:45 Carbidopa/Levodopa [Sinemet 25-100 mg] 2 tab PO DAY 02/19/21 Dinner National Dysphagia Diet [DIET] 02/19/21 21:00 Apixaban [Eliquis] 5 mg PO BID Melatonin 6 mg PO BEDTIME PRN 02/20/21 06:11 PT Evaluation and Treatment [CONS] Routine 02/20/21 06:12 OT Evaluation and Treatment [CONS] Routine 02/20/21 09:00 Fluticasone Propionate [Flonase] 0 gm NASBOTH DAILY Metoprolol Tartrate [Lopressor] 25 mg PO Q12H Rosuvastatin [Crestor] 10 mg PO DAILY amLODIPine [Norvasc] 5 mg PO DAILY 02/20/21 12:30 Azithromycin [Zithromax] 500 mg Sodium Chloride 0.9% [Normal Saline (AdvBag)] 250 ml IV Q24H cefTRIAXone [Rocephin] 1 gm Sodium Chloride 0.9% [Normal Saline] 100 ml IV Q24H 02/21/21 06:00 CBC WITH AUTO DIFF [HEME] DAILY 02/21/21 12:00 BASIC METABOLIC PANEL,BMP [CHEM] DAILY 02/22/21 06:00 CBC WITH AUTO DIFF [HEME] DAILY 02/22/21 12:00 BASIC METABOLIC PANEL,BMP [CHEM] DAILY 02/23/21 06:00 CBC WITH AUTO DIFF [HEME] DAILY 02/23/21 12:00 BASIC METABOLIC PANEL,BMP [CHEM] DAILY 02/24/21 06:00 CBC WITH AUTO DIFF [HEME] DAILY 02/24/21 12:00 BASIC METABOLIC PANEL,BMP [CHEM] DAILY 02/25/21 06:00 CBC WITH AUTO DIFF [HEME] DAILY - Plan Plan:: 1. Sepsis (nonsevere, nonshock). Physiology now resolved As defined by tachypnea, tachycardia and source of infection being pneumonic at time of admission. Patient appears to be euvolemic. Continue to monitor volume status. Intravascular volume repletion if necessary. Empiric antibiotics with Rocephin and azithromycin. 2. Community-acquired right lower lobe pneumonia. Empiric antibiotics as mentioned above. Respiratory therapy consult. Bronchodilators as necessary. Incentive spirometry to be encouraged. Not requiring supplemental oxygen at current time. Sputum culture if possible. 3. Atrial fibrillation with rapid ventricular response. Likely due to missing a dose of medication the day of presentation as well as systemic duress from problems 1 and 2. Now with normal rates. Continue metoprolol at current dose. For additional control, if necessary, will use calcium channel eva as she responded to it in the emergency department. Patient is on systemic anticoagulation with Eliquis which we will continue. 4. Parkinson's disease. Continue Sinemet. 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 PT and OT evaluation/consultation. May require disposition to nursing home facility. At the very least would need a significant amount of help at home. 5. Constipation. Daily bowel regimen with additional as needed medications as necessary. Enema at the time of admission. CODE STATUS: DNR/DNI. DVT prophylaxis; systemic anticoagulation with Eliquis.
[2021-02-20] MEDS ORDERED: Apixaban 5 MG Tab PO SCH (09:00)
[2021-02-20] MEDS ORDERED: Metoprolol Succinate 50 MG Tab.ER PO SCH (09:00)
[2021-02-20] MEDS ORDERED: Rosuvastatin 10 MG Tab PO SCH (09:00)
[2021-02-20] MEDS ORDERED: amLODIPine 5 MG Tab PO SCH ×2 (09:00)
[2021-02-20] MEDS: cefTRIAXone 1 GM in Sodium Chloride 0.9% 100 ML IV SCH (12:37)
[2021-02-20] MEDS: Azithromycin 500 MG in Sodium Chloride 0.9% 250 ML IV SCH (13:37)
[2021-02-21] MEDS: Acetaminophen 325 MG Tab PO PRN ×2 (01:15→18:26)
[2021-02-21] MEDS: Carbidopa/Levodopa 25-100 MG Tab PO SCH ×5 (05:12→21:08)
[2021-02-21] MEDS: Rosuvastatin 10 MG Tab PO SCH (08:28)
[2021-02-21] MEDS: Fluticasone Propionate Nasal Spray 16 GM Bottle NASBOTH SCH (08:29)
[2021-02-21] MEDS: Metoprolol Tartrate 25 MG Tab PO SCH ×2 (08:29→21:07)
[2021-02-21] MEDS: Apixaban 5 MG Tab PO SCH ×2 (08:29→21:07)
--- NOTE | 2021-02-21 08:43 | PCM.PN ---
- General Info Date of Service: 02/21/21 Admission Dx/Problem (Free Text): Admission Diagnosis/Problem Admission Diagnosis/Problem Sepsis, Pneumonia, Atrial Fibrillation with RVR Subjective Update: No acute events overnight. No new nursing concerns. Patient does not endorse any new specific complaints. Awaiting disposition plans from case management and social work. Likely will not be discharged to local facility until next week. - Patient Data Vitals - Most Recent: Last Vital Signs Temp 98.1 F 02/21/21 03:42 Pulse 66 02/21/21 08:29 Resp 11 L 02/21/21 03:42 BP 157/114 H 02/21/21 08:29 Pulse Ox 93 L 02/21/21 03:42 Weight - Most Recent: 150 lb 4.8 oz I&O - Last 24 Hours: Intake & Output 02/20/21 02/21/21 02/21/21 22:59 06:59 14:59 Intake Total 850 500 Balance 850 500 Lab Results Last 24 Hours: Laboratory Results - last 24 hr 02/21/21 Range/Units 04:40 WBC 7.77 (3.98-10.04) K/mm3 RBC 3.55 L (3.98-5.22) M/mm3 Hgb 10.7 L (11.2-15.7) gm/dl Hct 34.1 (34.1-44.9) % MCV 96.1 H (79.4-94.8) fl MCH 30.1 (25.6-32.2) pg MCHC 31.4 L (32.2-35.5) g/dl RDW Std Deviation 46.5 H (36.4-46.3) fL Plt Count 252 (182-369) K/mm3 MPV 9.0 L (9.4-12.3) fl Neut % (Auto) 77.6 H (34.0-71.1) % Lymph % (Auto) 7.9 L (19.3-51.7) % [place] % (Auto) 10.9 (4.7-12.5) % Eos % (Auto) 2.6 (0.7-5.8) Baso % (Auto) 0.4 (0.1-1.2) % Neut # (Auto) 6.03 (1.56-6.13) K/mm3 Lymph # (Auto) 0.61 L (1.18-3.74) K/mm3 [place] # (Auto) 0.85 H (0.24-0.36) K/mm3 Eos # (Auto) 0.20 (0.04-0.36) K/mm3 Baso # (Auto) 0.03 (0.01-0.08) K/mm3 Manual Slide Review Abnormal smear Med Orders - Current: Current Medications Acetaminophen (Acetaminophen 325 Mg Tab) 650 mg PO Q4H PRN PRN Reason: Pain (Mild 1-3)/fever Last Admin: 02/21/21 01:15 Dose: 650 mg Documented by: Albuterol/Ipratropium (Albuterol/Ipratropium 3.0-0.5 Mg/3 Ml Neb Soln) 3 ml NEB Q4H PRN PRN Reason: Shortness Of Breath/wheezing Apixaban (Apixaban 5 Mg Tab) 5 mg PO BID [facility] Last Admin: 02/21/21 08:29 Dose: 5 mg Documented by: Carbidopa/Levodopa (Carbidopa/Levodopa 25-100 Mg Tab) 2 tab PO 5XDAY [facility] Last Admin: 02/21/21 05:12 Dose: 2 tab Documented by: Fluticasone Propionate (Fluticasone Propionate Nasal [place] 16 Gm Bottle) 0 gm NASBOTH DAILY [facility] Last Admin: 02/21/21 08:29 Dose: 1 spray Documented by: Azithromycin 500 mg/ Sodium (Chloride) 250 mls @ 250 mls/hr IV Q24H [facility] Last Admin: 02/20/21 13:37 Dose: 250 mls/hr Documented by: Ceftriaxone Sodium 1 gm/ (Sodium Chloride) 100 mls @ 200 mls/hr IV Q24H [facility] Last Admin: 02/20/21 12:37 Dose: 200 mls/hr Documented by: Magnesium Hydroxide (Magnesium Hydroxide 400 Mg/5 Ml Susp 30 Ml Cup) 30 ml PO Q12H PRN PRN Reason: Constipation Melatonin (Melatonin 3 Mg Tab) 6 mg PO BEDTIME PRN PRN Reason: Insomnia Last Admin: 02/20/21 21:26 Dose: 6 mg Documented by: Metoprolol Tartrate (Metoprolol Tartrate 25 Mg Tab) 25 mg PO Q12H [facility] Last Admin: 02/21/21 08:29 Dose: 25 mg Documented by: Ondansetron HCl (Ondansetron 4 Mg Tab.Dis) 4 mg PO Q4H PRN PRN Reason: nausea, able to take PO Ondansetron HCl (Ondansetron 4 Mg/2 Ml Sdv) 4 mg IV Q4H PRN PRN Reason: Nausea/Vomiting Pantoprazole Sodium (Pantoprazole 40 Mg Tab.Cr) 40 mg PO DAILY PRN PRN Reason: gi upset Polyethylene Glycol (Polyethylene Glycol 3350 Powder 17 Gm Packet) 17 gm PO DAILY PRN PRN Reason: Constipation Last Admin: 02/19/21 12:32 Dose: 17 gm Documented by: Psyllium Husk (Psyllium Husk Powder Sugar Free 5.85 Gm Packet) 1 pkt PO DAILY PRN PRN Reason: Constipation Rosuvastatin Calcium (Rosuvastatin 10 Mg Tab) 10 mg PO DAILY [facility] Last Admin: 02/21/21 08:28 Dose: 10 mg Documented by: Sodium Chloride (Sodium Chloride 0.9% 10 Ml Syringe) 10 ml FLUSH ASDIRECTED PRN PRN Reason: Keep Vein Open Discontinued Medications Amlodipine Besylate (Amlodipine 5 Mg Tab) 5 mg PO DAILY RL Amlodipine Besylate (Amlodipine 5 Mg Tab) 5 mg PO DAILY RL Apixaban (Apixaban 5 Mg Tab) 5 mg PO DAILY RL Carbidopa/Levodopa (Carbidopa/Levodopa 25-100 Mg Tab) 2 tab PO 5XDAY [facility] Diltiazem HCl (Diltiazem 50 Mg/10 Ml Sdv) 20 mg IVPUSH ONETIME ONE Stop: 02/19/21 09:42 Last Admin: 02/19/21 09:47 Dose: 10 mg Documented by: Furosemide (Furosemide 40 Mg/4 Ml Vial) 40 mg IVPUSH NOW ONE Stop: 02/19/21 11:34 Last Admin: 02/19/21 11:45 Dose: 40 mg Documented by: Azithromycin 500 mg/ Sodium (Chloride) 250 mls @ 250 mls/hr IV ONETIME ONE Stop: 02/19/21 12:32 Last Admin: 02/19/21 13:13 Dose: 250 mls/hr Documented by: Ceftriaxone Sodium 2 gm/ (Sodium Chloride) 100 mls @ 200 mls/hr IV Q24H [facility] Last Admin: 02/19/21 12:31 Dose: 200 mls/hr Documented by: Ceftriaxone Sodium 1 gm/ (Sodium Chloride) 100 mls @ 200 mls/hr IV Q24H [facility] Last Admin: 02/19/21 13:00 Dose: Not Given Documented by: Azithromycin 500 mg/ Sodium (Chloride) 250 mls @ 250 mls/hr IV Q24H [facility] Last Admin: 02/19/21 13:00 Dose: Not Given Documented by: Magnesium Citrate (Magnesium Citrate Solution 296 Ml Bottle) 296 ml PO ONETIME ONE Stop: 02/19/21 11:09 Last Admin: 02/19/21 12:56 Dose: 296 ml Documented by: Metoprolol Succinate (Metoprolol Succinate 50 Mg Tab.Er) 50 mg PO DAILY [facility] Metoprolol Tartrate (Metoprolol Tartrate 5 Mg/5 Ml Sdv) 5 mg IVPUSH ONETIME ONE Stop: 02/19/21 10:34 Last Admin: 02/19/21 10:37 Dose: 5 mg Documented by: Metoprolol Tartrate (Metoprolol Tartrate 25 Mg Tab) 25 mg PO Q12H [facility] Last Admin: 02/19/21 14:52 Dose: Not Given Documented by: Metoprolol Tartrate (Metoprolol Tartrate 25 Mg Tab) 25 mg PO ONETIME ONE Stop: 02/19/21 14:31 Last Admin: 02/19/21 14:46 Dose: 25 mg Documented by: Metoprolol Tartrate (Metoprolol Tartrate 25 Mg Tab) 25 mg PO ONETIME ONE Stop: 02/19/21 23:01 Last Admin: 02/19/21 22:15 Dose: 25 mg Documented by: Non-Formulary Medication (Melatonin [Melatonin]) 6 mg PO BEDTIME PRN PRN Reason: Insomnia Non-Formulary Medication (Omeprazole Magnesium [Prilosec Otc]) 20 mg PO DAILY PRN PRN Reason: gi upset Non-Formulary Medication (Psyllium Husk [Metamucil]) 1 dose PO DAILY PRN PRN Reason: Constipation Rosuvastatin Calcium (Rosuvastatin 10 Mg Tab) 10 mg PO DAILY [facility] Sodium Chloride (Sodium Chloride 0.9% 10 Ml Syringe) 10 ml FLUSH ASDIRECTED PRN PRN Reason: Keep Vein Open Last Admin: 02/19/21 09:39 Dose: 10 ml Documented by: - Exam Quality Assessment: DVT Prophylaxis. No: Supplemental Oxygen General: Alert, Cooperative, No Acute Distress Lungs: Clear to Auscultation, Normal Respiratory Effort Cardiovascular: Regular Rate GI/Abdominal Exam: Normal Bowel Sounds, Soft Extremities: Normal Inspection Skin: Warm, Dry Neurological: No New Focal Deficit - Patient Data Lab Results Last 24 hrs: Laboratory Results - last 24 hr 02/21/21 Range/Units 04:40 WBC 7.77 (3.98-10.04) K/mm3 RBC 3.55 L (3.98-5.22) M/mm3 Hgb 10.7 L (11.2-15.7) gm/dl Hct 34.1 (34.1-44.9) % MCV 96.1 H (79.4-94.8) fl MCH 30.1 (25.6-32.2) pg MCHC 31.4 L (32.2-35.5) g/dl RDW Std Deviation 46.5 H (36.4-46.3) fL Plt Count 252 (182-369) K/mm3 MPV 9.0 L (9.4-12.3) fl Neut % (Auto) 77.6 H (34.0-71.1) % Lymph % (Auto) 7.9 L (19.3-51.7) % [place] % (Auto) 10.9 (4.7-12.5) % Eos % (Auto) 2.6 (0.7-5.8) Baso % (Auto) 0.4 (0.1-1.2) % Neut # (Auto) 6.03 (1.56-6.13) K/mm3 Lymph # (Auto) 0.61 L (1.18-3.74) K/mm3 [place] # (Auto) 0.85 H (0.24-0.36) K/mm3 Eos # (Auto) 0.20 (0.04-0.36) K/mm3 Baso # (Auto) 0.03 (0.01-0.08) K/mm3 Manual Slide Review Abnormal smear Result Diagrams: 02/21/21 04:40 02/20/21 05:54 Sepsis Event Note - Evaluation Sepsis Screening Result: No Definite Risk - Focused Exam Vital Signs: Vital Signs Temp Pulse Resp BP Pulse Ox 02/21/21 08:29 66 157/114 H 02/21/21 03:42 98.1 F 66 11 L 142/81 H 93 L 07/09/21 21:27 70 128/86 02/20/21 21:25 98.2 F 70 13 128/86 95 - Problem List & Annotations (1) Parkinson disease SNOMED Code(s): 27747036 Code(s): G20 - PARKINSON'S DISEASE Status: Acute Current Visit: Yes (2) Atrial fibrillation with RVR SNOMED Code(s): 857844970731410 Code(s): I48.91 - UNSPECIFIED ATRIAL FIBRILLATION Status: Acute Current Visit: Yes (3) Pneumonia SNOMED Code(s): 267060908 Code(s): J18.9 - PNEUMONIA, UNSPECIFIED ORGANISM Status: Acute Current Visit: Yes (4) Sepsis SNOMED Code(s): 25783383 Code(s): A41.9 - SEPSIS, UNSPECIFIED ORGANISM Status: Acute Current Visit: Yes (5) CKD (chronic kidney disease), stage III SNOMED Code(s): 698387683 Code(s): N18.30 - CHRONIC KIDNEY DISEASE, STAGE 3 UNSPECIFIED Status: Acute Current Visit: Yes (6) Constipation SNOMED Code(s): 95968779 Code(s): K59.00 - CONSTIPATION, UNSPECIFIED Status: Acute Current Visit: No - Problem List Review Problem List Initiated/Reviewed/Updated: Yes - My Orders Last 24 Hours: My Active Orders 02/20/21 09:00 Fluticasone Propionate [Flonase] 0 gm NASBOTH DAILY Metoprolol Tartrate [Lopressor] 25 mg PO Q12H Rosuvastatin [Crestor] 10 mg PO DAILY 02/20/21 12:30 Azithromycin [Zithromax] 500 mg Sodium Chloride 0.9% [Normal Saline (AdvBag)] 250 ml IV Q24H cefTRIAXone [Rocephin] 1 gm Sodium Chloride 0.9% [Normal Saline] 100 ml IV Q24H 02/21/21 12:00 BASIC METABOLIC PANEL,BMP [CHEM] DAILY 02/22/21 06:00 CBC WITH AUTO DIFF [HEME] DAILY 02/22/21 12:00 BASIC METABOLIC PANEL,BMP [CHEM] DAILY 02/23/21 06:00 CBC WITH AUTO DIFF [HEME] DAILY 02/23/21 12:00 BASIC METABOLIC PANEL,BMP [CHEM] DAILY 02/24/21 06:00 CBC WITH AUTO DIFF [HEME] DAILY 02/24/21 12:00 BASIC METABOLIC PANEL,BMP [CHEM] DAILY 02/25/21 06:00 CBC WITH AUTO DIFF [HEME] DAILY - Plan Plan:: 1. Sepsis (nonsevere, nonshock). Physiology now resolved As defined by tachypnea, tachycardia and source of infection being pneumonic at time of admission. Continue to monitor volume status. Intravascular volume repletion if necessary. Empiric antibiotics with Rocephin and azithromycin which can be transitioned to Augmentin at the time of discharge. 2. Community-acquired right lower lobe pneumonia. Empiric antibiotics as mentioned above. Respiratory therapy consult. Bronchodilators as necessary. Incentive spirometry to be encouraged. Not requiring supplemental oxygen at current time. 3. Atrial fibrillation with rapid ventricular response. Likely due to missing a dose of medication the day of presentation as well as systemic duress from problems 1 and 2. Now with normal rates. Continue metoprolol at current dose. Patient is on systemic anticoagulation with Eliquis which we will continue. 4. Parkinson's disease. Continue Sinemet. PT and OT evaluation/consultation. 5. Constipation. Daily bowel regimen with additional as needed medications as necessary. Enema at the time of admission. CODE STATUS: DNR/DNI. DVT prophylaxis; systemic anticoagulation with Eliquis.
[2021-02-21] MEDS: cefTRIAXone 1 GM in Sodium Chloride 0.9% 100 ML IV SCH (12:20)
[2021-02-21] MEDS: Azithromycin 500 MG in Sodium Chloride 0.9% 250 ML IV SCH (13:38)
[2021-02-22] MEDS: Carbidopa/Levodopa 25-100 MG Tab PO SCH ×6 (05:40→21:15)
[2021-02-22] MEDS: Polyethylene Glycol 3350 Powder 17 GM Packet PO PRN (05:40)
--- NOTE | 2021-02-22 08:39 | PCM.PN ---
- General Info Date of Service: 02/22/21 Admission Dx/Problem (Free Text): Admission Diagnosis/Problem Admission Diagnosis/Problem Sepsis, Pneumonia, Atrial Fibrillation with RVR Subjective Update: Patient lost IV access overnight. No longer requires 1. No other events overnight. No new nursing concerns. Patient does not endorse any new complaints. - Patient Data Vitals - Most Recent: Last Vital Signs Temp 97.9 F 02/22/21 07:31 Pulse 62 02/22/21 07:31 Resp 17 02/22/21 07:31 BP 120/65 02/22/21 07:31 Pulse Ox 94 L 02/22/21 07:31 Weight - Most Recent: 149 lb 12.8 oz I&O - Last 24 Hours: Intake & Output 02/21/21 02/22/21 02/22/21 22:59 06:59 14:59 Intake Total 950 800 Output Total 250 1225 Balance 700 -425 Lab Results Last 24 Hours: Laboratory Results - last 24 hr 02/21/21 02/22/21 02/22/21 Range/Units 09:40 04:43 04:43 WBC 8.25 (3.98-10.04) K/mm3 RBC 3.72 L (3.98-5.22) M/mm3 Hgb 11.5 (11.2-15.7) gm/dl Hct 35.8 (34.1-44.9) % MCV 96.2 H (79.4-94.8) fl MCH 30.9 (25.6-32.2) pg MCHC 32.1 L (32.2-35.5) g/dl RDW Std Deviation 46.1 (36.4-46.3) fL Plt Count 290 (182-369) K/mm3 MPV 8.6 L (9.4-12.3) fl Neut % (Auto) 81.2 H (34.0-71.1) % Lymph % (Auto) 6.9 L (19.3-51.7) % [place] % (Auto) 9.1 (4.7-12.5) % Eos % (Auto) 1.8 (0.7-5.8) Baso % (Auto) 0.4 (0.1-1.2) % Neut # (Auto) 6.70 H (1.56-6.13) K/mm3 Lymph # (Auto) 0.57 L (1.18-3.74) K/mm3 [place] # (Auto) 0.75 H (0.24-0.36) K/mm3 Eos # (Auto) 0.15 (0.04-0.36) K/mm3 Baso # (Auto) 0.03 (0.01-0.08) K/mm3 Manual Slide Review Abnormal smear Sodium 141 142 (136-145) mEq/L Potassium 4.1 4.0 (3.5-5.1) mEq/L Chloride 104 105 (98-107) mEq/L Carbon Dioxide 25 28 (21-32) mEq/L Anion Gap 16.1 H 13.0 (5-15) BUN 28 H 23 H (7-18) mg/dL Creatinine 1.1 H 1.0 (0.55-1.02) mg/dL Est Cr Clr Drug Dosing 32.37 35.61 mL/min Estimated GFR (MDRD) 47 52 (>60) mL/min BUN/Creatinine Ratio 25.5 H 23.0 H (14-18) Glucose 103 H 120 H (70-99) mg/dL Calcium 7.9 L 8.2 L (8.5-10.1) mg/dL Med Orders - Current: Current Medications Acetaminophen (Acetaminophen 325 Mg Tab) 650 mg PO Q4H PRN PRN Reason: Pain (Mild 1-3)/fever Last Admin: 02/21/21 18:26 Dose: 650 mg Documented by: Albuterol/Ipratropium (Albuterol/Ipratropium 3.0-0.5 Mg/3 Ml Neb Soln) 3 ml NEB Q4H PRN PRN Reason: Shortness Of Breath/wheezing Amoxicillin/Clavulanate Potassium (Amoxicillin/Clavulanate K 500-125 Mg Tab) 1 tab PO Q12HR [facility] Apixaban (Apixaban 5 Mg Tab) 5 mg PO BID [facility] Last Admin: 02/21/21 21:07 Dose: 5 mg Documented by: Carbidopa/Levodopa (Carbidopa/Levodopa 25-100 Mg Tab) 2 tab PO 5XDAY [facility] Last Admin: 02/22/21 05:40 Dose: 2 tab Documented by: Fluticasone Propionate (Fluticasone Propionate Nasal [place] 16 Gm Bottle) 0 gm NASBOTH DAILY [facility] Last Admin: 02/21/21 08:29 Dose: 1 spray Documented by: Magnesium Hydroxide (Magnesium Hydroxide 400 Mg/5 Ml Susp 30 Ml Cup) 30 ml PO Q12H PRN PRN Reason: Constipation Melatonin (Melatonin 3 Mg Tab) 6 mg PO BEDTIME PRN PRN Reason: Insomnia Last Admin: 02/20/21 21:26 Dose: 6 mg Documented by: Metoprolol Tartrate (Metoprolol Tartrate 25 Mg Tab) 25 mg PO Q12H [facility] Last Admin: 02/21/21 21:07 Dose: 25 mg Documented by: Ondansetron HCl (Ondansetron 4 Mg Tab.Dis) 4 mg PO Q4H PRN PRN Reason: nausea, able to take PO Last Admin: 02/22/21 05:40 Dose: 4 mg Documented by: Ondansetron HCl (Ondansetron 4 Mg/2 Ml Sdv) 4 mg IV Q4H PRN PRN Reason: Nausea/Vomiting Pantoprazole Sodium (Pantoprazole 40 Mg Tab.Cr) 40 mg PO DAILY PRN PRN Reason: gi upset Polyethylene Glycol (Polyethylene Glycol 3350 Powder 17 Gm Packet) 17 gm PO DAILY PRN PRN Reason: Constipation Last Admin: 02/22/21 05:40 Dose: 17 gm Documented by: Psyllium Husk (Psyllium Husk Powder Sugar Free 5.85 Gm Packet) 1 pkt PO DAILY PRN PRN Reason: Constipation Rosuvastatin Calcium (Rosuvastatin 10 Mg Tab) 10 mg PO DAILY [facility] Last Admin: 02/21/21 08:28 Dose: 10 mg Documented by: Discontinued Medications Amlodipine Besylate (Amlodipine 5 Mg Tab) 5 mg PO DAILY [facility] Amlodipine Besylate (Amlodipine 5 Mg Tab) 5 mg PO DAILY [facility] Apixaban (Apixaban 5 Mg Tab) 5 mg PO DAILY [facility] Carbidopa/Levodopa (Carbidopa/Levodopa 25-100 Mg Tab) 2 tab PO 5XDAY [facility] Diltiazem HCl (Diltiazem 50 Mg/10 Ml Sdv) 20 mg IVPUSH ONETIME ONE Stop: 02/19/21 09:42 Last Admin: 02/19/21 09:47 Dose: 10 mg Documented by: Furosemide (Furosemide 40 Mg/4 Ml Vial) 40 mg IVPUSH NOW ONE Stop: 02/19/21 11:34 Last Admin: 02/19/21 11:45 Dose: 40 mg Documented by: Azithromycin 500 mg/ Sodium (Chloride) 250 mls @ 250 mls/hr IV ONETIME ONE Stop: 02/19/21 12:32 Last Admin: 02/19/21 13:13 Dose: 250 mls/hr Documented by: Ceftriaxone Sodium 2 gm/ (Sodium Chloride) 100 mls @ 200 mls/hr IV Q24H [facility] Last Admin: 02/19/21 12:31 Dose: 200 mls/hr Documented by: Ceftriaxone Sodium 1 gm/ (Sodium Chloride) 100 mls @ 200 mls/hr IV Q24H [facility] Last Admin: 02/19/21 13:00 Dose: Not Given Documented by: Azithromycin 500 mg/ Sodium (Chloride) 250 mls @ 250 mls/hr IV Q24H [facility] Last Admin: 02/19/21 13:00 Dose: Not Given Documented by: Azithromycin 500 mg/ Sodium (Chloride) 250 mls @ 250 mls/hr IV Q24H [facility] Last Admin: 02/21/21 13:38 Dose: 250 mls/hr Documented by: Ceftriaxone Sodium 1 gm/ (Sodium Chloride) 100 mls @ 200 mls/hr IV Q24H [facility] Last Admin: 02/21/21 12:20 Dose: 200 mls/hr Documented by: Magnesium Citrate (Magnesium Citrate Solution 296 Ml Bottle) 296 ml PO ONETIME ONE Stop: 02/19/21 11:09 Last Admin: 02/19/21 12:56 Dose: 296 ml Documented by: Metoprolol Succinate (Metoprolol Succinate 50 Mg Tab.Er) 50 mg PO DAILY [facility] Metoprolol Tartrate (Metoprolol Tartrate 5 Mg/5 Ml Sdv) 5 mg IVPUSH ONETIME ONE Stop: 02/19/21 10:34 Last Admin: 02/19/21 10:37 Dose: 5 mg Documented by: Metoprolol Tartrate (Metoprolol Tartrate 25 Mg Tab) 25 mg PO Q12H [facility] Last Admin: 02/19/21 14:52 Dose: Not Given Documented by: Metoprolol Tartrate (Metoprolol Tartrate 25 Mg Tab) 25 mg PO ONETIME ONE Stop: 02/19/21 14:31 Last Admin: 02/19/21 14:46 Dose: 25 mg Documented by: Metoprolol Tartrate (Metoprolol Tartrate 25 Mg Tab) 25 mg PO ONETIME ONE Stop: 02/19/21 23:01 Last Admin: 02/19/21 22:15 Dose: 25 mg Documented by: Non-Formulary Medication (Melatonin [Melatonin]) 6 mg PO BEDTIME PRN PRN Reason: Insomnia Non-Formulary Medication (Omeprazole Magnesium [Prilosec Otc]) 20 mg PO DAILY PRN PRN Reason: gi upset Non-Formulary Medication (Psyllium Husk [Metamucil]) 1 dose PO DAILY PRN PRN Reason: Constipation Rosuvastatin Calcium (Rosuvastatin 10 Mg Tab) 10 mg PO DAILY [facility] Sodium Chloride (Sodium Chloride 0.9% 10 Ml Syringe) 10 ml FLUSH ASDIRECTED PRN PRN Reason: Keep Vein Open Last Admin: 02/19/21 09:39 Dose: 10 ml Documented by: Sodium Chloride (Sodium Chloride 0.9% 10 Ml Syringe) 10 ml FLUSH ASDIRECTED PRN PRN Reason: Keep Vein Open - Exam General: Alert, Cooperative, No Acute Distress Lungs: Clear to Auscultation, Normal Respiratory Effort Cardiovascular: Irregular Rhythm (Consistent with atrial fibrillation.) GI/Abdominal Exam: Normal Bowel Sounds, Soft, Non-Tender Extremities: Normal Inspection Neurological: No New Focal Deficit Physical Findings Comments:: Generally weak. - Patient Data Lab Results Last 24 hrs: Laboratory Results - last 24 hr 02/21/21 02/22/21 02/22/21 Range/Units 09:40 04:43 04:43 WBC 8.25 (3.98-10.04) K/mm3 RBC 3.72 L (3.98-5.22) M/mm3 Hgb 11.5 (11.2-15.7) gm/dl Hct 35.8 (34.1-44.9) % MCV 96.2 H (79.4-94.8) fl MCH 30.9 (25.6-32.2) pg MCHC 32.1 L (32.2-35.5) g/dl RDW Std Deviation 46.1 (36.4-46.3) fL Plt Count 290 (182-369) K/mm3 MPV 8.6 L (9.4-12.3) fl Neut % (Auto) 81.2 H (34.0-71.1) % Lymph % (Auto) 6.9 L (19.3-51.7) % [place] % (Auto) 9.1 (4.7-12.5) % Eos % (Auto) 1.8 (0.7-5.8) Baso % (Auto) 0.4 (0.1-1.2) % Neut # (Auto) 6.70 H (1.56-6.13) K/mm3 Lymph # (Auto) 0.57 L (1.18-3.74) K/mm3 [place] # (Auto) 0.75 H (0.24-0.36) K/mm3 Eos # (Auto) 0.15 (0.04-0.36) K/mm3 Baso # (Auto) 0.03 (0.01-0.08) K/mm3 Manual Slide Review Abnormal smear Sodium 141 142 (136-145) mEq/L Potassium 4.1 4.0 (3.5-5.1) mEq/L Chloride 104 105 (98-107) mEq/L Carbon Dioxide 25 28 (21-32) mEq/L Anion Gap 16.1 H 13.0 (5-15) BUN 28 H 23 H (7-18) mg/dL Creatinine 1.1 H 1.0 (0.55-1.02) mg/dL Est Cr Clr Drug Dosing 32.37 35.61 mL/min Estimated GFR (MDRD) 47 52 (>60) mL/min BUN/Creatinine Ratio 25.5 H 23.0 H (14-18) Glucose 103 H 120 H (70-99) mg/dL Calcium 7.9 L 8.2 L (8.5-10.1) mg/dL Result Diagrams: 02/22/21 04:43 02/22/21 04:43 Sepsis Event Note - Evaluation Sepsis Screening Result: No Definite Risk - Focused Exam Vital Signs: Vital Signs Temp Pulse Resp BP Pulse Ox 02/22/21 07:31 97.9 F 62 17 120/65 94 L 02/22/21 02:05 98.1 F 80 16 148/79 H 94 L 02/21/21 21:07 68 112/84 - Problem List & Annotations (1) Parkinson disease SNOMED Code(s): 03377638 Code(s): G20 - PARKINSON'S DISEASE Status: Acute Current Visit: Yes (2) Atrial fibrillation with RVR SNOMED Code(s): 909196608461632 Code(s): I48.91 - UNSPECIFIED ATRIAL FIBRILLATION Status: Acute Current Visit: Yes (3) Pneumonia SNOMED Code(s): 879762585 Code(s): J18.9 - PNEUMONIA, UNSPECIFIED ORGANISM Status: Acute Current Visit: Yes (4) Sepsis SNOMED Code(s): 95733591 Code(s): A41.9 - SEPSIS, UNSPECIFIED ORGANISM Status: Acute Current Visit: Yes (5) CKD (chronic kidney disease), stage III SNOMED Code(s): 222479598 Code(s): N18.30 - CHRONIC KIDNEY DISEASE, STAGE 3 UNSPECIFIED Status: Acute Current Visit: Yes (6) Constipation SNOMED Code(s): 85834089 Code(s): K59.00 - CONSTIPATION, UNSPECIFIED Status: Acute Current Visit: No - Problem List Review Problem List Initiated/Reviewed/Updated: Yes - My Orders Last 24 Hours: My Active Orders 02/21/21 19:45 Admission Status [Patient Status] [ADT] Routine 02/22/21 09:00 Amoxicillin/Clavulanate K [Augmentin 500 MG\125 MG] 1 tab PO Q12HR 02/23/21 06:00 CBC WITH AUTO DIFF [HEME] DAILY 02/23/21 12:00 BASIC METABOLIC PANEL,BMP [CHEM] DAILY 02/24/21 06:00 CBC WITH AUTO DIFF [HEME] DAILY 02/24/21 12:00 BASIC METABOLIC PANEL,BMP [CHEM] DAILY 02/25/21 06:00 CBC WITH AUTO DIFF [HEME] DAILY - Plan Plan:: 1. Sepsis (nonsevere, nonshock). Physiology now resolved As defined by tachypnea, tachycardia and source of infection being pneumonic at time of admission. Continue to monitor volume status. Intravascular volume repletion if necessary. As the patient has lost IV access, and really does not need 1. Will transition to Augmentin 500/125 twice a day to complete full course of therapy. 2. Community-acquired right lower lobe pneumonia. Antibiotics as mentioned above. Respiratory therapy consult. Bronchodilators as necessary. Incentive spirometry to be encouraged. Still not requiring supplemental oxygen at current time. 3. Atrial fibrillation with rapid ventricular response. Likely due to missing a dose of medication the day of presentation as well as systemic duress from problems 1 and 2. Now with normal rates. Continue metoprolol at current dose. Patient is on systemic anticoagulation with Eliquis which we will continue. 4. Parkinson's disease. Continue Sinemet. PT and OT evaluation/consultation. 5. Constipation. Daily bowel regimen with additional as needed medications as necessary. Enema at the time of admission. CODE STATUS: DNR/DNI. DVT prophylaxis; systemic anticoagulation with Eliquis. Disposition: Hopefully early this week. Patient needs assisted facility placement
[2021-02-22] MEDS: Metoprolol Tartrate 25 MG Tab PO SCH ×2 (09:59→20:49)
[2021-02-22] MEDS: Apixaban 5 MG Tab PO SCH ×2 (09:59→20:48)
[2021-02-22] MEDS: Amoxicillin/Clavulanate K 500-125 MG Tab PO SCH ×2 (09:59→20:47)
[2021-02-22] MEDS: Rosuvastatin 10 MG Tab PO SCH (09:59)
[2021-02-22] MEDS: Fluticasone Propionate Nasal Spray 16 GM Bottle NASBOTH SCH (10:00)
[2021-02-22] MEDS: Acetaminophen 325 MG Tab PO PRN (20:47)
[2021-02-22] MEDS: Docusate Sodium 100 MG Cap PO SCH (20:49)
[2021-02-23] MEDS: Carbidopa/Levodopa 25-100 MG Tab PO SCH ×2 (06:30→09:23)
--- NOTE | 2021-02-23 08:26 | PCM.DCSUM1 ---
Discharge Summary - Hospital Course Free Text/Narrative:: 1. Sepsis (nonsevere, non-shock). Sepsis physiology resolved within a number of hours. As defined by tachypnea, tachycardia and source of infection being pneumonic at time of admission. Monitored volume status. Did not require IV resuscitation. 2. Community-acquired right lower lobe pneumonia. Antibiotics were originally empiric with Rocephin and azithromycin. Patient was transitioned to Augmentin oral therapy on 02/22/2021. She will continue this on an outpatient basis to complete full course. Respiratory therapy was consulted. Bronchodilators were ordered on a as needed basis but she did not require them. Incentive spirometry to be encouraged. She never required supplemental oxygen. 3. Atrial fibrillation with rapid ventricular response. Likely due to missing a dose of medication the day of presentation as well as systemic duress from problems 1 and 2. Now with normal rates. Metoprolol dosing changed to tartrate short acting 25 mg twice daily. She is on systemic anticoagulation with Eliquis was continued. She will continue taking this on an outpatient basis. 4. Parkinson's disease. Continue Sinemet. PT and OT evaluation/consultation. Patient to be set up for swallow study to evaluate swallowing mechanics and to plan for better diet to reduce the risk of aspiration. 5. Constipation. Daily bowel regimen with additional as needed medications as necessary. Enema at the time of admission. CODE STATUS: DNR/DNI. DVT prophylaxis; systemic anticoagulation with Eliquis. HPI Initial Comments: Initial Comments - Free Text/Narative: Patient is an 86-year-old female with a past medical history as listed below who presents to the [facility] emergency department due to generally not feeling well. Patient endorses a history of a cough since this past weekend. She has not had any sick contacts. She has been in the house for the past 2 weeks. Cough has been progressively getting worse and occasionally productive for some yellow sputum. No hemoptysis noted. The patient has not felt febrile. She denies any other flulike symptoms. Denies myalgias or arthralgias. Denies any nausea or vomiting. Continues to have issues with constipation which is an ongoing problem for her. She has been taking stool softeners as well as milk of magnesia to little to no effect. Her last bowel movement was 4 days ago. She has had an occasional discomfort in the abdomen associated with her constipation. No other bowel habit changes. No difficulties with voiding. She denies any postnasal drip, sore throat. She denies any chest pain, chest pressure or pleurisy. Her states that she became weak over the past 24 hours to the point where she has not been able to get out of bed. This worried him enough to have her evaluated in the hospital. Upon evaluation in the emergency department. She was tachypneic and tachycardic with atrial fibrillation (with RVR). She appeared weak but nontoxic. Imaging was notable for a slight infiltrate in the right base. Abdominal KUB notable for significant amount of stool. For her atrial fibrillation with RVR as she had a pulse in the 130s, she was given 1 dose of 10 mg IV Cardizem to which she responded. Afterwards, she was given her home metoprolol dose. Patient was given Rocephin and azithromycin at my discretion upon discussion with the emergency department. Patient was then referred to the internal medicine service for further work-up and management. Of note, the patient was appearing comfortable and not on supplemental oxygen upon entering the room. A 14 point review of systems was reviewed with the patient and her and only pertinent for the above information. CODE STATUS: Reviewed and she wishes to be DNR/DNI. - Related Data Allergies/Adverse Reactions: Allergies Allergy/AdvReac Type Severity Reaction Status Date / Time No Known Allergies Allergy Verified 02/19/21 09:23 Home Medications: Home Meds Fluticasone Propionate [Flonase] 1 dose NS DAILY 06/08/19 [History] Calcium Carbonate/Vitamin D3 [Calcium Carbonate/Vitamin D 600 MG-200 Unit] 1 tab PO DAILY 09/24/19 [History] Cyanocobalamin (Vitamin B-12) [B-12] 1,000 mcg PO DAILY 09/24/19 [History] Carbidopa/Levodopa [Sinemet 25-100 mg Tablet] 2 tab PO 5XDAY 05/30/20 [History] Melatonin 6 mg PO BEDTIME PRN 05/30/20 [History] Metoprolol Succinate 25 mg PO DAILY 05/30/20 [History] Multivitamin [Poly-Vitamin] 1 tab PO DAILY 05/30/20 [History] Omeprazole Magnesium [Prilosec Otc] 20 mg PO DAILY PRN 05/30/20 [History] Potassium Chloride 20 meq PO DAILY 05/30/20 [History] Psyllium Husk [Metamucil] 1 dose PO DAILY PRN 05/30/20 [History] Rosuvastatin [Crestor] 10 mg PO DAILY 05/30/20 [History] Ondansetron [Zofran ODT] 4 mg PO TID 08/04/20 [History] amLODIPine [Norvasc] 5 mg PO DAILY 08/04/20 [History] Apixaban [Eliquis] 1 tab PO DAILY 02/19/21 [History] Past Medical History HEENT History: Reports: Cataract, Impaired Vision Cardiovascular History: Reports: Blood Clots/VTE/DVT, High Cholesterol, Hypertension, Pacemaker, Other (See Below) Other Cardiovascular History: SVT, varicose veins Respiratory History: Reports: None Gastrointestinal History: Reports: Chronic Constipation, GERD Other Gastrointestinal History: post op nausea and vomiting Genitourinary History: Reports: Other (See Below) Other Genitourinary History: CKDIII, proteinuria 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 Musculoskeletal History: Reports: Gout, Osteoarthritis, Osteoporosis, Other (See Below) Other Musculoskeletal History: restless leg syndrome, right wrist carpal tunnel Neurological History: Reports: Parkinson's, Other (See Below) Other Neuro History: acoustic nerve injury, chronic hemifacial spasm Psychiatric History: Reports: None Endocrine/Metabolic History: Reports: None Hematologic History: Reports: Anemia, Iron Deficiency Immunologic History: Reports: None Oncologic (Cancer) History: Reports: Colon Dermatologic History: Reports: Other (See Below) Other Dermatologic History: phlebitis and thrombophlebitis - Infectious Disease History Infectious Disease History: Reports: Chicken Pox, Measles, Mumps, Shingles - Past Surgical History Head Surgeries/Procedures: Reports: None HEENT Surgical History: Reports: Cataract Surgery, Tonsillectomy Cardiovascular Surgical History: Reports: None Respiratory Surgical History: Reports: None GI Surgical History: Reports: Cholecystectomy, Colon, Colonoscopy Female Surgical History: Reports: Hysterectomy Endocrine Surgical History: Reports: None Neurological Surgical History: Reports: None Musculoskeletal Surgical History: Reports: Knee Replacement Oncologic Surgical History: Reports: None Dermatological Surgical History: Reports: None Social & Family History - Family History Family Medical History: No Pertinent Family History - Tobacco Use Tobacco Use Status *Q: Never Tobacco User - Caffeine Use Caffeine Use: Reports: Coffee, Tea Caffeine Use Comment: 2 cups a day - Recreational Drug Use Recreational Drug Use: No - Living Situation & Occupation Living situation: Reports: Occupation: Retired H&P Review of Systems - Review of Systems: Review Of Systems: Comprehensive ROS is negative, except as noted in HPI. Exam - Exam Exam: See Below - Vital Signs Vital Signs: Last Vital Signs Temp 97.5 F 02/19/21 09:26 Pulse 117 H 02/19/21 10:37 Resp 20 02/19/21 09:26 BP 106/71 02/19/21 10:37 Pulse Ox 96 02/19/21 09:26 Weight: 147 lb - Exam Physical Exam Comments:: General: Awake and alert, in no apparent distress. Nontoxic-appearing. HEENT: Normocephalic, atraumatic. Extra ocular muscles intact. Pupils equal and reactive to light. Nares are patent. Oropharynx clear without erythema or exudate. Tongue is midline. 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 Neck: Supple without lymphadenopathy. No goiter. Trachea midline. Heart: Irregular rate and rhythm. Lightly tachycardic. S1 and S2 heard without murmur or extrasystoles. Lungs: Decreased breath sounds at the bases. No wheezing, rales, rhonchi. Abdomen: Soft, nontender, distended. Positive bowel sounds. No CVA tenderness. No suprapubic tenderness. Extremities: Warm and perfused. No clubbing, cyanosis, or edema. Integument: No obvious rash or jaundice. No lymphadenopathy. Neurologic: Cranial nerves II through XII grossly intact. No obvious gross motor or sensory deficits. Psychiatric: Normal mood and affect. - Discharge Data Discharge Date: 02/23/21 Discharge Disposition: Home, Home Health Agency 06 Condition: Good - Referral to Home Health Date of Face to Face Encounter: 02/23/21 Reason for Homebound Status: [id number] meeting with patient. Patient has the following diagnoses; advanced Parkinson's disease, facial muscle spasticity, also see discharge summary for additional diagnosis. Patient needs home health care nursing services for; skilled assessment, vital signs, disease education/management, and medical education. Physical therapy for gait training, transfer training, safety education, neuromuscular reeducation, therapeutic exercise, caregiver training balance training, equipment recommenda tions. Occupational Therapy for; activities of daily living, balance training, functional mobility training, safety education, therapeutic activities, therapeutic exercises. 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 Patient is currently homebound related decreased activity tolerance, decreased level of endurance, and need for FW W use. Patient will be followed by their primary care provider. Primary Care Physician: Emily Carrillo MD Skilled Need: PT, OT, home health aide. - Discharge Diagnosis/Problem(s) (1) Parkinson disease SNOMED Code(s): 57363422 ICD Code: G20 - PARKINSON'S DISEASE Status: Acute Current Visit: Yes (2) Atrial fibrillation with RVR SNOMED Code(s): 659171077521652 ICD Code: I48.91 - UNSPECIFIED ATRIAL FIBRILLATION Status: Acute Current Visit: Yes (3) Pneumonia SNOMED Code(s): 532676532 ICD Code: J18.9 - PNEUMONIA, UNSPECIFIED ORGANISM Status: Acute Current Visit: Yes (4) Sepsis SNOMED Code(s): 92067321 ICD Code: A41.9 - SEPSIS, UNSPECIFIED ORGANISM Status: Acute Current Visit: Yes (5) CKD (chronic kidney disease), stage III SNOMED Code(s): 634371936 ICD Code: N18.30 - CHRONIC KIDNEY DISEASE, STAGE 3 UNSPECIFIED Status: Acute Current Visit: Yes (6) Constipation SNOMED Code(s): 96157695 ICD Code: K59.00 - CONSTIPATION, UNSPECIFIED Status: Acute Current Visit: No - Patient Summary/Data Consults: Consultations 02/19/21 12:15 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 Continue taking medications as noted in the discharge packet. You require 3 additional days of antibiotic therapy with Augmentin. Video swallow study to be scheduled by the case management team. They will be notifying you when to present to the hospital for this study. This study is to better understand your swallowing mechanics so that a proper diet may be discussed with you, to reduce the risk of aspiration (food going down the wrong pipe). Activity as tolerated. If you experience any signs or symptoms that warranted this admission please do not hesitate to call your primary care physician or present to an emergency department for an immediate evaluation. - Discharge Plan *PRESCRIPTION DRUG MONITORING PROGRAM REVIEWED*: Not Applicable *COPY OF PRESCRIPTION DRUG MONITORING REPORT IN PATIENT LEO: Not Applicable Prescriptions/Med Rec: Amoxicillin/Clavulanate K [Augmentin 500-125 MG] 1 tab PO Q12HR #6 tablet Metoprolol Tartrate [Lopressor] 25 mg PO Q12H #60 tablet Home Medications: Home Meds Fluticasone Propionate [Flonase] 1 dose NS DAILY 06/08/19 [History] Calcium Carbonate/Vitamin D3 [Calcium Carbonate/Vitamin D 600 MG-200 Unit] 1 tab PO DAILY 09/24/19 [History] Cyanocobalamin (Vitamin B-12) [B-12] 1,000 mcg PO DAILY 09/24/19 [History] Carbidopa/Levodopa [Sinemet 25-100 mg Tablet] 2 tab PO 5XDAY 05/30/20 [History] Melatonin 6 mg PO BEDTIME PRN 05/30/20 [History] Multivitamin [Poly-Vitamin] 1 tab PO DAILY 05/30/20 [History] Omeprazole Magnesium [Prilosec Otc] 20 mg PO DAILY PRN 05/30/20 [History] Potassium Chloride 20 meq PO DAILY 05/30/20 [History] Psyllium Husk [Metamucil] 1 dose PO DAILY PRN 05/30/20 [History] Rosuvastatin [Crestor] 10 mg PO DAILY 05/30/20 [History] Ondansetron [Zofran ODT] 4 mg PO TID 08/04/20 [History] amLODIPine [Norvasc] 5 mg PO DAILY 08/04/20 [History] Apixaban [Eliquis] 1 tab PO BID 02/19/21 [History] Amoxicillin/Clavulanate K [Augmentin 500-125 MG] 1 tab PO Q12HR #6 tablet 02/23/21 [Rx] Metoprolol Tartrate [Lopressor] 25 mg PO Q12H #60 tablet 02/23/21 [Rx] Forms: ED Department Discharge Referrals: Emily Carrillo MD [Primary Care Provider] - - Discharge Summary/Plan Comment DC Time >30 min.: Yes - General Info Date of Service: 02/23/21 Admission Dx/Problem (Free Text: Admission Diagnosis/Problem Admission Diagnosis/Problem Sepsis, Pneumonia, Atrial Fibrillation with RVR Subjective Update: No acute events overnight. No new nursing concerns. Patient does not endorse any specific complaints. - Patient Data Vitals - Most Recent: Last Vital Signs Temp 98.2 F 02/23/21 02:33 Pulse 64 02/23/21 02:33 Resp 12 02/23/21 02:33 BP 140/73 02/23/21 02:33 Pulse Ox 92 L 02/23/21 02:33 Weight - Most Recent: 151 lb 1.6 oz I&O - Last 24 hours: Intake & Output 02/22/21 02/23/21 02/23/21 22:59 06:59 14:59 Intake Total 920 800 Output Total 750 Balance 920 50 Lab Results - Last 24 hrs: Laboratory Results - last 24 hr 02/23/21 02/23/21 Range/Units 05:45 05:45 WBC 7.82 (3.98-10.04) K/mm3 RBC 3.68 L (3.98-5.22) M/mm3 Hgb 11.2 (11.2-15.7) gm/dl Hct 35.5 (34.1-44.9) % MCV 96.5 H (79.4-94.8) fl MCH 30.4 (25.6-32.2) pg MCHC 31.5 L (32.2-35.5) g/dl RDW Std Deviation 46.3 (36.4-46.3) fL Plt Count 315 (182-369) K/mm3 MPV 8.8 L (9.4-12.3) fl Neut % (Auto) 80.2 H (34.0-71.1) % Lymph % (Auto) 7.4 L (19.3-51.7) % [place] % (Auto) 9.1 (4.7-12.5) % Eos % (Auto) 1.9 (0.7-5.8) Baso % (Auto) 0.4 (0.1-1.2) % Neut # (Auto) 6.27 H (1.56-6.13) K/mm3 Lymph # (Auto) 0.58 L (1.18-3.74) K/mm3 [place] # (Auto) 0.71 H (0.24-0.36) K/mm3 Eos # (Auto) 0.15 (0.04-0.36) K/mm3 Baso # (Auto) 0.03 (0.01-0.08) K/mm3 Manual Slide Review Abnormal smear Sodium 143 (136-145) mEq/L Potassium 4.0 (3.5-5.1) mEq/L Chloride 106 (98-107) mEq/L Carbon Dioxide 30 (21-32) mEq/L Anion Gap 11.0 (5-15) BUN 19 H (7-18) mg/dL Creatinine 0.9 (0.55-1.02) mg/dL Est Cr Clr Drug Dosing 39.56 mL/min Estimated GFR (MDRD) 59 (>60) mL/min BUN/Creatinine Ratio 21.1 H (14-18) Glucose 103 H (70-99) mg/dL Calcium 8.2 L (8.5-10.1) mg/dL Med Orders - Current: Current Medications Acetaminophen (Acetaminophen 325 Mg Tab) 650 mg PO Q4H PRN PRN Reason: Pain (Mild 1-3)/fever Last Admin: 02/22/21 20:47 Dose: 650 mg Documented by: Albuterol/Ipratropium (Albuterol/Ipratropium 3.0-0.5 Mg/3 Ml Neb Soln) 3 ml NEB Q4H PRN PRN Reason: Shortness Of Breath/wheezing Amoxicillin/Clavulanate Potassium (Amoxicillin/Clavulanate K 500-125 Mg Tab) 1 tab PO Q12HR [facility] Last Admin: 02/22/21 20:47 Dose: 1 tab Documented by: Apixaban (Apixaban 5 Mg Tab) 5 mg PO BID [facility] Last Admin: 02/22/21 20:48 Dose: 5 mg Documented by: Carbidopa/Levodopa (Carbidopa/Levodopa 25-100 Mg Tab) 2 tab PO 5XDAY [facility] Last Admin: 02/23/21 06:30 Dose: 2 tab Documented by: Docusate Sodium (Docusate Sodium 100 Mg Cap) 100 mg PO BID [facility] Last Admin: 02/22/21 20:49 Dose: 100 mg Documented by: Fluticasone Propionate (Fluticasone Propionate Nasal [place] 16 Gm Bottle) 0 gm NASBOTH DAILY [facility] Last Admin: 02/22/21 10:00 Dose: 1 spray Documented by: Magnesium Hydroxide (Magnesium Hydroxide 400 Mg/5 Ml Susp 30 Ml Cup) 30 ml PO Q12H PRN PRN Reason: Constipation Last Admin: 02/22/21 20:49 Dose: 30 ml Documented by: Melatonin (Melatonin 3 Mg Tab) 6 mg PO BEDTIME PRN PRN Reason: Insomnia Last Admin: 02/20/21 21:26 Dose: 6 mg Documented by: Metoprolol Tartrate (Metoprolol Tartrate 25 Mg Tab) 25 mg PO Q12H RL Last Admin: 02/22/21 20:49 Dose: 25 mg Documented by: Ondansetron HCl (Ondansetron 4 Mg Tab.Dis) 4 mg PO Q4H PRN PRN Reason: nausea, able to take PO Last Admin: 02/22/21 05:40 Dose: 4 mg Documented by: Ondansetron HCl (Ondansetron 4 Mg/2 Ml Sdv) 4 mg IV Q4H PRN PRN Reason: Nausea/Vomiting Pantoprazole Sodium (Pantoprazole 40 Mg Tab.Cr) 40 mg PO DAILY PRN PRN Reason: gi upset Polyethylene Glycol (Polyethylene Glycol 3350 Powder 17 Gm Packet) 17 gm PO DAILY [facility] Psyllium Husk (Psyllium Husk Powder Sugar Free 5.85 Gm Packet) 1 pkt PO DAILY PRN PRN Reason: Constipation Rosuvastatin Calcium (Rosuvastatin 10 Mg Tab) 10 mg PO DAILY [facility] Last Admin: 02/22/21 09:59 Dose: 10 mg Documented by: Discontinued Medications Amlodipine Besylate (Amlodipine 5 Mg Tab) 5 mg PO DAILY [facility] Amlodipine Besylate (Amlodipine 5 Mg Tab) 5 mg PO DAILY [facility] Apixaban (Apixaban 5 Mg Tab) 5 mg PO DAILY [facility] Carbidopa/Levodopa (Carbidopa/Levodopa 25-100 Mg Tab) 2 tab PO 5XDAY [facility] Diltiazem HCl (Diltiazem 50 Mg/10 Ml Sdv) 20 mg IVPUSH ONETIME ONE Stop: 02/19/21 09:42 Last Admin: 02/19/21 09:47 Dose: 10 mg Documented by: Furosemide (Furosemide 40 Mg/4 Ml Vial) 40 mg IVPUSH NOW ONE Stop: 02/19/21 11:34 Last Admin: 02/19/21 11:45 Dose: 40 mg Documented by: Azithromycin 500 mg/ Sodium (Chloride) 250 mls @ 250 mls/hr IV ONETIME ONE Stop: 02/19/21 12:32 Last Admin: 02/19/21 13:13 Dose: 250 mls/hr Documented by: Ceftriaxone Sodium 2 gm/ (Sodium Chloride) 100 mls @ 200 mls/hr IV Q24H [facility] Last Admin: 02/19/21 12:31 Dose: 200 mls/hr Documented by: Ceftriaxone Sodium 1 gm/ (Sodium Chloride) 100 mls @ 200 mls/hr IV Q24H [facility] Last Admin: 02/19/21 13:00 Dose: Not Given Documented by: Azithromycin 500 mg/ Sodium (Chloride) 250 mls @ 250 mls/hr IV Q24H [facility] Last Admin: 02/19/21 13:00 Dose: Not Given Documented by: Azithromycin 500 mg/ Sodium (Chloride) 250 mls @ 250 mls/hr IV Q24H [facility] Last Admin: 02/21/21 13:38 Dose: 250 mls/hr Documented by: Ceftriaxone Sodium 1 gm/ (Sodium Chloride) 100 mls @ 200 mls/hr IV Q24H [facility] Last Admin: 02/21/21 12:20 Dose: 200 mls/hr Documented by: Magnesium Citrate (Magnesium Citrate Solution 296 Ml Bottle) 296 ml PO ONETIME ONE Stop: 02/19/21 11:09 Last Admin: 02/19/21 12:56 Dose: 296 ml Documented by: Metoprolol Succinate (Metoprolol Succinate 50 Mg Tab.Er) 50 mg PO DAILY [facility] Metoprolol Tartrate (Metoprolol Tartrate 5 Mg/5 Ml Sdv) 5 mg IVPUSH ONETIME ONE Stop: 02/19/21 10:34 Last Admin: 02/19/21 10:37 Dose: 5 mg Documented by: Metoprolol Tartrate (Metoprolol Tartrate 25 Mg Tab) 25 mg PO Q12H [facility] Last Admin: 02/19/21 14:52 Dose: Not Given Documented by: Metoprolol Tartrate (Metoprolol Tartrate 25 Mg Tab) 25 mg PO ONETIME ONE Stop: 02/19/21 14:31 Last Admin: 02/19/21 14:46 Dose: 25 mg Documented by: Metoprolol Tartrate (Metoprolol Tartrate 25 Mg Tab) 25 mg PO ONETIME ONE Stop: 02/19/21 23:01 Last Admin: 02/19/21 22:15 Dose: 25 mg Documented by: Non-Formulary Medication (Melatonin [Melatonin]) 6 mg PO BEDTIME PRN PRN Reason: Insomnia Non-Formulary Medication (Omeprazole Magnesium [Prilosec Otc]) 20 mg PO DAILY PRN PRN Reason: gi upset Non-Formulary Medication (Psyllium Husk [Metamucil]) 1 dose PO DAILY PRN PRN Reason: Constipation Polyethylene Glycol (Polyethylene Glycol 3350 Powder 17 Gm Packet) 17 gm PO DAILY PRN PRN Reason: Constipation Last Admin: 02/22/21 05:40 Dose: 17 gm Documented by: Rosuvastatin Calcium (Rosuvastatin 10 Mg Tab) 10 mg PO DAILY RL Sodium Chloride (Sodium Chloride 0.9% 10 Ml Syringe) 10 ml FLUSH ASDIRECTED PRN PRN Reason: Keep Vein Open Last Admin: 02/19/21 09:39 Dose: 10 ml Documented by: Sodium Chloride (Sodium Chloride 0.9% 10 Ml Syringe) 10 ml FLUSH ASDIRECTED PRN PRN Reason: Keep Vein Open - Exam Quality Assessment: Reports: DVT Prophylaxis (With Eliquis.). Denies: Supplemental Oxygen General: Reports: Alert, Oriented Neck: Reports: Supple Lungs: Reports: Clear to Auscultation, Normal Respiratory Effort Cardiovascular: Reports: Irregular Rhythm GI/Abdominal Exam: Normal Bowel Sounds, Soft, Non-Tender, No Distention Extremities: Normal Inspection, No Pedal Edema Skin: Reports: Warm, Dry, Intact Neurological: Reports: No New Focal Deficit
[2021-02-23] MEDS ORDERED: Polyethylene Glycol 3350 Powder 17 GM Packet PO SCH (09:00)
[2021-02-23] MEDS: Metoprolol Tartrate 25 MG Tab PO SCH (09:22)
[2021-02-23] MEDS: Amoxicillin/Clavulanate K 500-125 MG Tab PO SCH (09:22)
[2021-02-23] MEDS: Rosuvastatin 10 MG Tab PO SCH (09:22)
[2021-02-23] MEDS: Apixaban 5 MG Tab PO SCH (09:23)
[2021-02-23] MEDS: Fluticasone Propionate Nasal Spray 16 GM Bottle NASBOTH SCH (09:23)
[2021-02-23] MEDS: Docusate Sodium 100 MG Cap PO SCH (09:23)
[2021-02-23 09:31] VITALS: BP 135/61; PULSE 65
== END 2021-02-23 10:52 | disposition home health service (06) | DRG 871 ==
LOC: JD.ED 09:12 → JD.MS 11:46
PROVIDERS: ADMIT Hospitalist; ATTEND Hospitalist
DX: A41.9 Sepsis, unspecified organism (principal); J18.9 Pneumonia, unspecified organism; I48.91 Unspecified atrial fibrillation; I50.9 Heart failure, unspecified; Z66 Do not resuscitate; H54.7 Unspecified visual loss; E78.00 Pure hypercholesterolemia, unspecified; K59.09 Other constipation; I11.0 Hypertensive heart disease with heart failure; Z86.718 Personal history of other venous thrombosis and embolism; I13.0 Hypertensive heart and chronic kidney disease with heart failure and stage 1 through stage 4 chronic kidney disease, or unspecified chronic kidney disease; N18.30 Chronic kidney disease, stage 3 unspecified; M81.0 Age-related osteoporosis without current pathological fracture; Z96.659 Presence of unspecified artificial knee joint; G25.81 Restless legs syndrome; K21.9 Gastro-esophageal reflux disease without esophagitis; M19.90 Unspecified osteoarthritis, unspecified site; Z90.89 Acquired absence of other organs; M10.9 Gout, unspecified; G20 Parkinson's disease; Z95.0 Presence of cardiac pacemaker; Z90.49 Acquired absence of other specified parts of digestive tract; D50.9 Iron deficiency anemia, unspecified; Z85.038 Personal history of other malignant neoplasm of large intestine; Z79.01 Long term (current) use of anticoagulants; Z79.899 Other long term (current) drug therapy; Z20.822 Contact with and (suspected) exposure to COVID-19
CPT/HCPCS: 36415; 71045; 74019; 80053; 81001; 83735; 83880; 84443; 84484; 85025; 86140; 93005; 96374; 96375; 99285; J1940; J3490 ×2; U0002; 80048; 83605; 92526-GN; 92610-GN; 93010; 94762; 97116-GP; 97162-GP; 99223; 99232; 99233; 99239; A9270-GY; J0456; J0696; J7050

== ENCOUNTER 2021-02-24 14:11 | Emergency (ER) | payer MEDICARE, OTHER ==
--- NOTE | 2021-02-24 15:12 | EDM.PDOC ---
ED HPI GENERAL MEDICAL PROBLEM - General Chief Complaint: Respiratory Problem Stated Complaint: DISCHARGED YESTERDAY SX ARE BACK TODAY Time Seen by Provider: 02/24/21 15:10 - History of Present Illness INITIAL COMMENTS - FREE TEXT/NARRATIVE: 86-year-old female returns to the emergency room with with a coughing episode today. Patient was discharged yesterday with pneumonia and A. fib RVR. She is on Eliquis. About midday today the patient had a coughing fit where she had a cough multiple times. This was self resolved. Patient and her became concerned about this and brought her in for recheck. They are not aware aware of any fevers or chills she is not have any chest pain or chest pressure other than some discomfort after the coughing fit today. She is taking her antibiotics. She has taken Augmentin twice daily. The patient is also having problems with constipation this started to get better but she has not had a BM since last night where she only passed a couple of small very hard pellets. She is not having any nausea or vomiting. Patient has advanced Parkinson's disease. - Related Data Allergies Allergy/AdvReac Type Severity Reaction Status Date / Time No Known Allergies Allergy Verified 02/19/21 13:58 Home Meds: Home Meds Fluticasone Propionate [Flonase] 1 dose NS DAILY 06/08/19 [History] Calcium Carbonate/Vitamin D3 [Calcium Carbonate/Vitamin D 600 MG-200 Unit] 1 tab PO DAILY 09/24/19 [History] Cyanocobalamin (Vitamin B-12) [B-12] 1,000 mcg PO DAILY 09/24/19 [History] Carbidopa/Levodopa [Sinemet 25-100 mg Tablet] 2 tab PO 5XDAY 05/30/20 [History] Melatonin 6 mg PO BEDTIME PRN 05/30/20 [History] Multivitamin [Poly-Vitamin] 1 tab PO DAILY 05/30/20 [History] Omeprazole Magnesium [Prilosec Otc] 20 mg PO DAILY PRN 05/30/20 [History] Potassium Chloride 20 meq PO DAILY 05/30/20 [History] Psyllium Husk [Metamucil] 1 dose PO DAILY PRN 05/30/20 [History] Rosuvastatin [Crestor] 10 mg PO DAILY 05/30/20 [History] Ondansetron [Zofran ODT] 4 mg PO TID 08/04/20 [History] amLODIPine [Norvasc] 5 mg PO DAILY 08/04/20 [History] Apixaban [Eliquis] 1 tab PO BID 02/19/21 [History] Amoxicillin/Clavulanate K [Augmentin 500-125 MG] 1 tab PO Q12HR #6 tablet 02/23/21 [Rx] Metoprolol Tartrate [Lopressor] 25 mg PO Q12H #60 tablet 02/23/21 [Rx] Furosemide 20 mg PO DAILY #30 tablet 02/24/21 [Rx] Past Medical History HEENT History: Reports: Cataract, Hard of Hearing, Impaired Vision, Other (See Below) Other HEENT History: bilateral hearing aides. 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 Musculoskeletal History: Reports: Fracture, Gout, Osteoarthritis, Osteoporosis, Other (See Below) Other Musculoskeletal History: restless leg syndrome, right wrist carpal tunnel Neurological History: Reports: Parkinson's, Other (See Below) Other Neuro History: acoustic nerve injury, chronic hemifacial spasm Psychiatric History: Reports: None Endocrine/Metabolic History: Reports: None Hematologic History: Reports: Anemia, Iron Deficiency Immunologic History: Reports: None Oncologic (Cancer) History: Reports: Colon Dermatologic History: Reports: Other (See Below) Other Dermatologic History: phlebitis and thrombophlebitis - Infectious Disease History Infectious Disease History: Reports: Chicken Pox, Measles, Mumps, Shingles - Past Surgical History HEENT Surgical History: Reports: Cataract Surgery, Tonsillectomy GI Surgical History: Reports: Cholecystectomy, Colon, Colonoscopy Female Surgical History: Reports: Hysterectomy Musculoskeletal Surgical History: Reports: Knee Replacement Social & Family History - Family History Family Medical History: No Pertinent Family History - Tobacco Use Tobacco Use Status *Q: Never Tobacco User Second Hand Smoke Exposure: No - Caffeine Use Caffeine Use: Reports: Coffee Caffeine Use Comment: 2 cups a day - Recreational Drug Use Recreational Drug Use: No - Living Situation & Occupation Living situation: Reports: Occupation: Retired ED ROS GENERAL - Review of Systems Review Of Systems: See Below Constitutional: Reports: No Symptoms HEENT: Reports: No Symptoms Respiratory: Reports: Cough. Denies: Sputum Cardiovascular: Reports: No Symptoms Endocrine: Reports: No Symptoms GI/Abdominal: Reports: Constipation. Denies: Diarrhea, Nausea, Vomiting : Reports: No Symptoms, Hematuria ED EXAM, GENERAL - Physical Exam Exam: See Below Exam Limited By: No Limitations General Appearance: Alert, No Apparent Distress Head: Atraumatic, Normocephalic Neck: Normal Inspection, Supple, Non-Tender, Full Range of Motion Respiratory/Chest: No Respiratory Distress, Lungs Clear, Normal Breath Sounds, Other (Few bibasilar crackles seem to improve with deep breathing) Cardiovascular: Regular Rate, Rhythm, No Edema, No Murmur GI/Abdominal: Normal Bowel Sounds, Soft, Non-Tender Back Exam: Normal Inspection. No: CVA Tenderness (L), CVA Tenderness (R) Extremities: Normal Inspection, No Pedal Edema Course - Vital Signs Last Recorded V/S: Last Vital Signs Temp 37.3 C 02/24/21 16:34 Pulse 74 02/24/21 16:34 Resp 18 02/24/21 16:34 BP 151/71 H 02/24/21 16:34 Pulse Ox 95 02/24/21 16:34 - Orders/Labs/Meds Labs: Laboratory Tests 02/24/21 02/24/21 02/24/21 Range/Units 16:40 16:40 16:40 WBC 12.40 H (3.98-10.04) K/mm3 RBC 4.00 (3.98-5.22) M/mm3 Hgb 12.1 (11.2-15.7) gm/dl Hct 38.8 (34.1-44.9) % MCV 97.0 H (79.4-94.8) fl MCH 30.3 (25.6-32.2) pg MCHC 31.2 L (32.2-35.5) g/dl RDW Std Deviation 46.8 H (36.4-46.3) fL Plt Count 344 (182-369) K/mm3 MPV 8.4 L (9.4-12.3) fl Neut % (Auto) 84.1 H (34.0-71.1) % Lymph % (Auto) 5.2 L (19.3-51.7) % [place] % (Auto) 8.2 (4.7-12.5) % Eos % (Auto) 1.5 (0.7-5.8) Baso % (Auto) 0.4 (0.1-1.2) % Neut # (Auto) 10.43 H (1.56-6.13) K/mm3 Lymph # (Auto) 0.65 L (1.18-3.74) K/mm3 Oliver # (Auto) 1.02 H (0.24-0.36) K/mm3 Eos # (Auto) 0.18 (0.04-0.36) K/mm3 Baso # (Auto) 0.05 (0.01-0.08) K/mm3 Manual Slide Review Abnormal smear Sodium 142 (136-145) mEq/L Potassium 4.2 (3.5-5.1) mEq/L Chloride 106 (98-107) mEq/L Carbon Dioxide 31 (21-32) mEq/L Anion Gap 9.2 (5-15) BUN 19 H (7-18) mg/dL Creatinine 1.0 (0.55-1.02) mg/dL Est Cr Clr Drug Dosing 37.10 mL/min Estimated GFR (MDRD) 52 (>60) mL/min BUN/Creatinine Ratio 19.0 H (14-18) Glucose 103 H (70-99) mg/dL Calcium 8.5 (8.5-10.1) mg/dL Total Bilirubin 0.5 (0.2-1.0) mg/dL AST 21 (15-37) U/L ALT 18 (14-59) U/L Alkaline Phosphatase 79 (46-116) U/L Troponin I < 0.017 (0.00-0.056) ng/mL NT-Pro-B Natriuret Pep 1552 H (0-450) pg/mL Total Protein 5.9 L (6.4-8.2) g/dl Albumin 2.8 L (3.4-5.0) g/dl Globulin 3.1 gm/dL Albumin/Globulin Ratio 0.9 L (1-2) - Re-Assessments/Exams Free Text/Narrative Re-Assessment/Exam: 02/24/21 18:51 X-ray is concerning for significant development of pleural effusions compared to her x-rays on the eighth when she was thought to have pneumonia. She was on a water pill at one point but apparently they stopped this will restart furosemide 20 mg daily and have her follow-up in the clinic at the end of this week for recheck if she has not had a recent echocardiogram this would be reasonable next step Departure - Departure Time of Disposition: 18:52 Disposition: Home, Self-Care 01 Clinical Impression: Pleural effusion - Discharge Information Referrals: Emily Carrillo MD [Primary Care Provider] - Forms: ED Department Discharge Additional Instructions: Return to the emergency room with any questions problems or worsening symptoms. We have restarted your furosemide take 1 daily. Take your potassium 20 mEq 1 daily. The new prescription for the furosemide has been sent to [facility] pharmacy electronically pick it up in the morning your first dose was given here in the emergency room. You are developing some fluid around your lungs. You need close follow-up for this and should be seen in the clinic the end of this week for recheck. Sepsis Event Note (ED) - Evaluation Sepsis Screening Result: No Definite Risk - Focused Exam Vital Signs: Vital Signs Temp Pulse Resp BP Pulse Ox 02/24/21 16:34 37.3 C 74 18 151/71 H 95 02/24/21 14:20 37.1 C 80 20 168/78 H 99
[2021-02-24 16:34] VITALS: BP 151/71; PULSE 74
--- NOTE | 2021-02-24 17:33 | CR ---
Abdominal series: Frontal view of the chest was obtained as well as supine and upright views of the abdomen. Comparison: Prior chest x-ray and abdominal x-ray of 02/19/21. Small bilateral pleural effusions are seen which are slightly increased from prior exam. Pacemaker is noted. Heart is slightly enlarged. Minimal atelectasis seen within both lung bases. Scattered gas within the small bowel is seen as well as gas and mild stool within the colon. This does not appear to be obstructive. Calcifications are seen within the pelvis which are felt compatible with phleboliths. No free air is seen. Mild degenerative change is scattered throughout the spine. Prior surgery is noted within the lower pelvis. Impression: 1. Small bilateral pleural effusions which are increased from prior exam. 2. Stable cardiomegaly. 3. Other findings believed to be incidental as noted above. Diagnostic code #3
[2021-02-24] MEDS ORDERED: Furosemide 20 MG Tab PO ONE (18:54)
== END 2021-02-24 19:34 | disposition home or self-care (01) ==
LOC: JD.ED 14:11
DX: J90 Pleural effusion, not elsewhere classified (principal); I11.0 Hypertensive heart disease with heart failure; I50.9 Heart failure, unspecified; E78.00 Pure hypercholesterolemia, unspecified; K21.9 Gastro-esophageal reflux disease without esophagitis; M10.9 Gout, unspecified; D64.9 Anemia, unspecified; Z79.01 Long term (current) use of anticoagulants; Z79.899 Other long term (current) drug therapy
CPT/HCPCS: 36415; 74022; 80053; 83880; 84484; 85025; 99283; A9270

== ENCOUNTER 2021-06-24 10:50 | Emergency (ER) | payer MEDICARE, OTHER ==
[2021-06-24 10:58] VITALS: BP 154/85
[2021-06-24 11:05] VITALS: PULSE 70
[2021-06-24] MEDS ORDERED: FLU Vacc QS2021(65UP)/MF59C/PF 60 MCG/0.5 ML Syringe IM ONE (11:15)
--- NOTE | 2021-06-24 11:58 | CR ---
Chest: Portable view of the chest was obtained. Comparison: Prior chest x-ray of 02/19/21. Heart size and mediastinum are within normal limits. Bichamber pacemaker is seen. Lungs are clear with no acute parenchymal change. Please note that there is a small portion of the lateral right costophrenic angle not included on the study. Degenerative change is seen within both shoulders. Scattered degenerative change is also partially seen within the thoracic spine. Impression: 1. Findings as described above. 2. Nothing acute is seen on portable chest x-ray. Diagnostic code #2
--- NOTE | 2021-06-24 13:34 | EDM.PDOC ---
ED HPI GENERAL MEDICAL PROBLEM - General Chief Complaint: Respiratory Problem Stated Complaint: [facility] Time Seen by Provider: 06/24/21 11:35 Source of Information: Reports: Patient History Limitations: Reports: No Limitations - History of Present Illness INITIAL COMMENTS - FREE TEXT/NARRATIVE: Patient is an 86-year-old female presenting to the emergency room with complaint of fatigue, sore throat, headache. Patient reports that symptoms started this morning. Patient states symptoms are mild in nature. She has not taken anything for the symptoms. Patient reports her Covid test yesterday which was negative. She states she does not feel any shortness of breath or chest pain. Otherwise, denies any head injury, fevers, nausea, vomiting. No interventions performed prior to arrival. - Related Data Allergies Allergy/AdvReac Type Severity Reaction Status Date / Time No Known Allergies Allergy Verified 02/19/21 13:58 Home Meds: Home Meds Fluticasone Propionate [Flonase] 1 dose NS DAILY 06/08/19 [History] Calcium Carbonate/Vitamin D3 [Calcium Carbonate/Vitamin D 600 MG-200 Unit] 1 tab PO DAILY 09/24/19 [History] Cyanocobalamin (Vitamin B-12) [B-12] 1,000 mcg PO DAILY 09/24/19 [History] Carbidopa/Levodopa [Sinemet 25-100 mg Tablet] 2.5 tab PO 05/30/20 [History] Melatonin 6 mg PO BEDTIME PRN 05/30/20 [History] Multivitamin [Poly-Vitamin] 1 tab PO DAILY 05/30/20 [History] Omeprazole Magnesium [Prilosec Otc] 20 mg PO DAILY 05/30/20 [History] Potassium Chloride 20 meq PO DAILY 05/30/20 [History] Psyllium Husk [Metamucil] 1 dose PO DAILY PRN 05/30/20 [History] Rosuvastatin [Crestor] 10 mg PO DAILY 05/30/20 [History] Ondansetron [Zofran ODT] 4 mg PO TID PRN 08/04/20 [History] amLODIPine [Norvasc] 5 mg PO DAILY 08/04/20 [History] Apixaban [Eliquis] 1 tab PO BID 02/19/21 [History] Furosemide 40 mg PO DAILY 06/24/21 [History] Metoprolol Tartrate [Lopressor] 12.5 mg PO Q12H 06/24/21 [History] Mirtazapine 7.5 mg PO BEDTIME 06/24/21 [History] Moxifloxacin [Vigamox 0.5% Ophth Soln] 1 drop EYEBOTH ASDIRECTED PRN 06/24/21 [History] allopurinoL [Zyloprim] 100 mg PO DAILY 06/24/21 [History] guaiFENesin [Mucinex] 1,200 mg PO BID 06/24/21 [History] polyethylene glycoL 3350 [MiraLAX] 1 scoop PO DAILY 06/24/21 [History] Past Medical History HEENT History: Reports: Cataract, Hard of Hearing, Impaired Vision, Other (See Below) Other HEENT History: bilateral hearing aides. Cardiovascular History: Reports: Blood Clots/VTE/DVT, Heart Failure, High Cholesterol, Hypertension, Pacemaker, Other (See Below) Other Cardiovascular History: SVT, varicose veins Respiratory History: Reports: Pneumonia, Recurrent Gastrointestinal History: Reports: Chronic Constipation, GERD Other Gastrointestinal History: post op nausea and vomiting Genitourinary History: Reports: Other (See Below) Other Genitourinary History: CKDIII, proteinuria [employer] History: Reports: None Musculoskeletal History: Reports: Fracture, Gout, Osteoarthritis, Osteoporosis, Other (See Below) Other Musculoskeletal History: restless leg syndrome, right wrist carpal tunnel Neurological History: Reports: Parkinson's, Other (See Below) Other Neuro History: acoustic nerve injury, chronic hemifacial spasm Psychiatric History: Reports: None Endocrine/Metabolic History: Reports: None Hematologic History: Reports: Anemia, Iron Deficiency Immunologic History: Reports: None Oncologic (Cancer) History: Reports: Colon Dermatologic History: Reports: Other (See Below) Other Dermatologic History: phlebitis and thrombophlebitis - Infectious Disease History Infectious Disease History: Reports: Chicken Pox, Measles, Mumps, Shingles - Past Surgical History Head Surgeries/Procedures: Reports: None HEENT Surgical History: Reports: Cataract Surgery, Tonsillectomy Cardiovascular Surgical History: Reports: None Respiratory Surgical History: Reports: None GI Surgical History: Reports: Cholecystectomy, Colon, Colonoscopy Female Surgical History: Reports: Hysterectomy Endocrine Surgical History: Reports: None Neurological Surgical History: Reports: None Musculoskeletal Surgical History: Reports: Knee Replacement Oncologic Surgical History: Reports: None Dermatological Surgical History: Reports: None Social & Family History - Family History Family Medical History: No Pertinent Family History - Tobacco Use Tobacco Use Status *Q: Never Tobacco User - Caffeine Use Caffeine Use: Reports: Coffee Caffeine Use Comment: 2 cups a day - Recreational Drug Use Recreational Drug Use: No - Living Situation & Occupation Living situation: Reports: Occupation: Retired ED ROS GENERAL - Review of Systems Review Of Systems: See Below Free Text/Narrative/Comment: In addition to that documented in the HPI above, the additional ROS was obtained: Constitutional: Denies fevers or chills Eyes: Denies vision changes ENMT: Per HPI CV: Denies chest pain Resp: Denies SOB GI: Denies vomiting or diarrhea : Denies painful urination MSK: Denies recent trauma Skin: Denies new rashes Neuro: Denies new numbness or tingling or weakness Endocrine: Denies unexpected weight loss Heme: Denies bleeding disorders ED EXAM, GENERAL - Physical Exam Exam: See Below Free Text/Narrative:: I have reviewed the triage vital signs Const: Well nourished, well developed, appears stated age Eyes: Pupils Equal and reactive to light bilaterally, no conjunctival injection HENT: No signs of trauma or swelling, Neck supple without meningismus CV: Regular Rate Rhythm, Warm, well-perfused extremities RESP: Unlabored respiratory effort GI: soft, non-tender, non-distended, no masses MSK: No gross deformities appreciated Skin: Warm, dry. No rashes Neuro: Alert, log deck tender II-XII grossly intact. Sensation and motor function of extremities grossly intact. Psych: Appropriate mood and affect. Course - Vital Signs Last Recorded V/S: Last Vital Signs Temp 36.9 C 06/24/21 11:04 Pulse 70 06/24/21 11:04 Resp 16 06/24/21 11:04 BP 154/85 H 06/24/21 11:04 Pulse Ox 98 06/24/21 11:04 - Orders/Labs/Meds Labs: Laboratory Tests 06/24/21 06/24/21 06/24/21 Range/Units 11:35 11:40 11:52 WBC 5.89 (3.98-10.04) K/mm3 RBC 4.67 (3.98-5.22) M/mm3 Hgb 13.7 D (11.2-15.7) gm/dl Hct 43.8 (34.1-44.9) % MCV 93.8 D (79.4-94.8) fl MCH 29.3 (25.6-32.2) pg MCHC 31.3 L (32.2-35.5) g/dl RDW Std Deviation 54.1 H (36.4-46.3) fL Plt Count 206 D (182-369) K/mm3 MPV 9.3 L (9.4-12.3) fl Neut % (Auto) 72.0 H (34.0-71.1) % Lymph % (Auto) 16.3 L (19.3-51.7) % Stone % (Auto) 7.6 (4.7-12.5) % Eos % (Auto) 3.1 (0.7-5.8) Baso % (Auto) 0.7 (0.1-1.2) % Neut # (Auto) 4.24 (1.56-6.13) K/mm3 Lymph # (Auto) 0.96 L (1.18-3.74) K/mm3 Stone # (Auto) 0.45 H (0.24-0.36) K/mm3 Eos # (Auto) 0.18 (0.04-0.36) K/mm3 Baso # (Auto) 0.04 (0.01-0.08) K/mm3 Sodium (136-145) mEq/L Potassium (3.5-5.1) mEq/L Chloride (98-107) mEq/L Carbon Dioxide (21-32) mEq/L Anion Gap (5-15) BUN (7-18) mg/dL Creatinine (0.55-1.02) mg/dL Est Cr Clr Drug Dosing mL/min Estimated GFR (MDRD) (>60) mL/min BUN/Creatinine Ratio (14-18) Glucose (70-99) mg/dL Calcium (8.5-10.1) mg/dL Total Bilirubin (0.2-1.0) mg/dL AST (15-37) U/L ALT (14-59) U/L Alkaline Phosphatase (46-116) U/L Total Protein (6.4-8.2) g/dl Albumin (3.4-5.0) g/dl Globulin gm/dL Albumin/Globulin Ratio (1-2) Urine Color Yellow (Yellow) Urine Appearance Clear (Clear) Urine pH 7.0 (5.0-8.0) Ur Specific [place] 1.020 (1.005-1.030) Urine Protein Negative (Negative) Urine Glucose (UA) Negative (Negative) Urine Ketones Negative (Negative) Urine Occult Blood Trace-intact H (Negative) Urine Nitrite Negative (Negative) Urine Bilirubin Negative (Negative) Urine Urobilinogen 0.2 (0.2-1.0) Ur Leukocyte Esterase Negative (Negative) Urine RBC Not seen (0-5) /hpf Urine WBC Not seen (0-5) /hpf Ur Epithelial Cells 0-5 (0-5) /hpf Urine Bacteria Moderate H (FEW) /hpf Urine Mucus Not seen (FEW) /hpf SARS-CoV-2 RNA (ROSIBEL) Negative (NEGATIVE) 06/24/21 Range/Units 11:52 WBC (3.98-10.04) K/mm3 RBC (3.98-5.22) M/mm3 Hgb (11.2-15.7) gm/dl Hct (34.1-44.9) % MCV (79.4-94.8) fl MCH (25.6-32.2) pg MCHC (32.2-35.5) g/dl RDW Std Deviation (36.4-46.3) fL Plt Count (182-369) K/mm3 MPV (9.4-12.3) fl Neut % (Auto) (34.0-71.1) % Lymph % (Auto) (19.3-51.7) % Stone % (Auto) (4.7-12.5) % Eos % (Auto) (0.7-5.8) Baso % (Auto) (0.1-1.2) % Neut # (Auto) (1.56-6.13) K/mm3 Lymph # (Auto) (1.18-3.74) K/mm3 Stone # (Auto) (0.24-0.36) K/mm3 Eos # (Auto) (0.04-0.36) K/mm3 Baso # (Auto) (0.01-0.08) K/mm3 Sodium 143 (136-145) mEq/L Potassium 4.0 (3.5-5.1) mEq/L Chloride 104 (98-107) mEq/L Carbon Dioxide 34 H (21-32) mEq/L Anion Gap 9.0 (5-15) BUN 26 H (7-18) mg/dL Creatinine 1.1 H (0.55-1.02) mg/dL Est Cr Clr Drug Dosing 32.42 mL/min Estimated GFR (MDRD) 47 (>60) mL/min BUN/Creatinine Ratio 23.6 H (14-18) Glucose 103 H (70-99) mg/dL Calcium 9.6 (8.5-10.1) mg/dL Total Bilirubin 0.4 (0.2-1.0) mg/dL AST 20 (15-37) U/L ALT 7 L (14-59) U/L Alkaline Phosphatase 57 (46-116) U/L Total Protein 7.0 (6.4-8.2) g/dl Albumin 3.7 (3.4-5.0) g/dl Globulin 3.3 gm/dL Albumin/Globulin Ratio 1.1 (1-2) Urine Color (Yellow) Urine Appearance (Clear) Urine pH (5.0-8.0) Ur Specific [place] (1.005-1.030) Urine Protein (Negative) Urine Glucose (UA) (Negative) Urine Ketones (Negative) Urine Occult Blood (Negative) Urine Nitrite (Negative) Urine Bilirubin (Negative) Urine Urobilinogen (0.2-1.0) Ur Leukocyte Esterase (Negative) Urine RBC (0-5) /hpf Urine WBC (0-5) /hpf Ur Epithelial Cells (0-5) /hpf Urine Bacteria (FEW) /hpf Urine Mucus (FEW) /hpf SARS-CoV-2 RNA (ROSIBEL) (NEGATIVE) Meds: Medications Discontinued Medications Generic Name Dose Route Start Last Admin Trade Name Freq PRN Reason Stop Dose Admin Influenza Virus Vaccine 60 mcg 06/24/21 11:15 06/24/21 12:59 Flu Vacc [id number])/[id number]/Pf 60 Mcg/0.5 Ml Syringe IM 06/24/21 11:16 Not Given .ONCE ONE Departure - Departure Time of Disposition: 13:33 Disposition: Home, Self-Care 01 Preliminary Cause of *Q: Sepsis & Multi System Organ Failure Condition: Critical Clinical Impression: Fatigue, URI (upper respiratory infection) - Discharge Information Instructions: Fatigue, Upper Respiratory Infection, Adult, [id number] Referrals: Emily Carrillo MD [Primary Care Provider] - Forms: ED Department Discharge Additional Instructions: Please get rest at home. Follow-up with primary care physician tomorrow. Return to the emergency room for difficulty breathing, worsening of symptoms or any other emergent concerns. Sepsis Event Note (ED) - Focused Exam Vital Signs: Vital Signs Temp Pulse Resp BP Pulse Ox 06/24/21 11:04 36.9 C 70 16 154/85 H 98 06/24/21 10:57 36.9 C 80 18 154/85 H 97 - Assessment/Plan Assessment:: Patient 86-year-old female presenting with headache, throat pain, fatigue. Patient unremarkable ER course. Vital signs remained stable in the emergency room. Patient's headache resolved in the emergency room without treatment. Differential diagnosis considered for this patient include men ingitis/encephalitis, COVID-19, pneumonia, urinary tract infection. Work-up in the emergency room was unrevealing. Patient's labs were at baseline. At this point, patient feels comfortable and will be discharged home. Return precautions given as usual. Patient agrees with plan of care.
== END 2021-06-24 14:15 | disposition home or self-care (01) ==
LOC: JD.ED 10:50
DX: J06.9 Acute upper respiratory infection, unspecified (principal); R53.83 Other fatigue; Z20.822 Contact with and (suspected) exposure to COVID-19; I13.0 Hypertensive heart and chronic kidney disease with heart failure and stage 1 through stage 4 chronic kidney disease, or unspecified chronic kidney disease; I50.9 Heart failure, unspecified; N18.30 Chronic kidney disease, stage 3 unspecified; E78.00 Pure hypercholesterolemia, unspecified; K21.9 Gastro-esophageal reflux disease without esophagitis; M10.9 Gout, unspecified; Z79.899 Other long term (current) drug therapy
CPT/HCPCS: 36415; 71045; 80053; 81001; 85025; 99284; U0002

== ENCOUNTER 2021-07-23 16:19 | Emergency (ER) | payer MEDICARE, OTHER ==
[2021-07-23 16:29] VITALS: BP 115/72; PULSE 70
[2021-07-23] MEDS ORDERED: predniSONE 20 MG Tab PO ONE (17:11)
[2021-07-23] MEDS ORDERED: Acetaminophen/HYDROcodone 325-5 MG Tab PO ONE (17:11)
--- NOTE | 2021-07-23 18:35 | EDM.PDOC ---
ED HPI GENERAL MEDICAL PROBLEM - General Chief Complaint: Back Pain or Injury Stated Complaint: EMS Time Seen by Provider: 07/23/21 16:55 Source of Information: Reports: Patient, RN Notes Reviewed - History of Present Illness INITIAL COMMENTS - FREE TEXT/NARRATIVE: 86 yr female comes in with back pain. hx is vague but sounds like she has some chronic back pain, became more severe 2 to 3 days ago. Pain is R low back and buttock, radiating down R leg. She is taking occasional tylneol with last tylenol about 5 to 6 hrs ago. No recent fall or injury. Right Lower Back Pain Score (Numeric/FACES): 8 - Related Data Allergies Allergy/AdvReac Type Severity Reaction Status Date / Time No Known Allergies Allergy Verified 07/23/21 16:29 Home Meds: Home Meds Fluticasone Propionate [Flonase] 1 dose NS DAILY 06/08/19 [History] Calcium Carbonate/Vitamin D3 [Calcium Carbonate/Vitamin D 600 MG-200 Unit] 1 tab PO DAILY 09/24/19 [History] Cyanocobalamin (Vitamin B-12) [B-12] 1,000 mcg PO DAILY 09/24/19 [History] Carbidopa/Levodopa [Sinemet 25-100 mg Tablet] 2.5 tab PO 6XDAY 05/30/20 [History] Melatonin 6 mg PO BEDTIME PRN 05/30/20 [History] Multivitamin [Poly-Vitamin] 1 tab PO DAILY 05/30/20 [History] Omeprazole Magnesium [Prilosec Otc] 20 mg PO DAILY 05/30/20 [History] Potassium Chloride 20 meq PO DAILY 05/30/20 [History] Psyllium Husk [Metamucil] 1 dose PO DAILY PRN 05/30/20 [History] Rosuvastatin [Crestor] 10 mg PO DAILY 05/30/20 [History] Ondansetron [Zofran ODT] 4 mg PO TID PRN 08/04/20 [History] amLODIPine [Norvasc] 5 mg PO DAILY 08/04/20 [History] Apixaban [Eliquis] 1 tab PO BID 02/19/21 [History] Furosemide 40 mg PO DAILY 06/24/21 [History] Metoprolol Tartrate [Lopressor] 12.5 mg PO Q12H 06/24/21 [History] Mirtazapine 7.5 mg PO BEDTIME 06/24/21 [History] Moxifloxacin [Vigamox 0.5% Ophth Soln] 1 drop EYEBOTH ASDIRECTED PRN 06/24/21 [History] allopurinoL [Zyloprim] 100 mg PO DAILY 06/24/21 [History] guaiFENesin [Mucinex] 1,200 mg PO BID 06/24/21 [History] polyethylene glycoL 3350 [MiraLAX] 1 scoop PO DAILY 06/24/21 [History] Hydrocodone/Acetaminophen [HYDROcodone-Acetaminophen 5-325 MG] 1 each PO Q6HR PRN #10 tab 07/23/21 [Rx] Past Medical History HEENT History: Reports: Cataract, Hard of Hearing, Impaired Vision, Other (See Below) Other HEENT History: bilateral hearing aides. 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 Musculoskeletal History: Reports: Fracture, Gout, Osteoarthritis, Osteoporosis, Other (See Below) Other Musculoskeletal History: restless leg syndrome, right wrist carpal tunnel Neurological History: Reports: Parkinson's, Other (See Below) Other Neuro History: acoustic nerve injury, chronic hemifacial spasm Psychiatric History: Reports: None Endocrine/Metabolic History: Reports: None Hematologic History: Reports: Anemia, Iron Deficiency Immunologic History: Reports: None Oncologic (Cancer) History: Reports: Colon Dermatologic History: Reports: Other (See Below) Other Dermatologic History: phlebitis and thrombophlebitis - Infectious Disease History Infectious Disease History: Reports: Chicken Pox, Measles, Mumps, Shingles - Past Surgical History Head Surgeries/Procedures: Reports: None HEENT Surgical History: Reports: Cataract Surgery, Tonsillectomy Cardiovascular Surgical History: Reports: Pacer Respiratory Surgical History: Reports: None GI Surgical History: Reports: Cholecystectomy, Colon, Colonoscopy Female Surgical History: Reports: Hysterectomy Endocrine Surgical History: Reports: None Neurological Surgical History: Reports: None Musculoskeletal Surgical History: Reports: Knee Replacement Oncologic Surgical History: Reports: None Dermatological Surgical History: Reports: None Social & Family History - Family History Family Medical History: No Pertinent Family History - Tobacco Use Tobacco Use Status *Q: Never Tobacco User - Caffeine Use Caffeine Use: Reports: Coffee Caffeine Use Comment: 2 cups a day - Recreational Drug Use Recreational Drug Use: No - Living Situation & Occupation Living situation: Reports: Occupation: Retired ED ROS GENERAL - Review of Systems Review Of Systems: See Below Constitutional: Denies: Fever, Chills HEENT: Reports: No Symptoms Respiratory: Denies: Shortness of Breath Cardiovascular: Denies: Chest Pain GI/Abdominal: Denies: Abdominal Pain, Nausea, Vomiting : Reports: No Symptoms Musculoskeletal: Reports: Back Pain, Leg Pain Skin: Reports: No Symptoms Neurological: Denies: Numbness, Weakness ED EXAM,LOWER BACK PAIN/INJURY - Physical Exam Exam: See Below General Appearance: Alert, No Apparent Distress (at rest) Head: Atraumatic Neck: Supple Respiratory/Chest: No Respiratory Distress, Lungs Clear, Normal Breath Sounds Cardiovascular: Regular Rate, Rhythm GI/Abdominal: Soft, Non-Tender Back Exam: No: Paraspinal Tenderness, Vertebral Tenderness Extremities: No: Pedal Edema, Leg Pain Neurological: Alert, No Motor/Sensory Deficits, Other (She does have increased pain with SLR bilat) Course - Vital Signs Last Recorded V/S: Last Vital Signs Temp 97.3 F 07/23/21 16:26 Pulse 70 07/23/21 16:26 Resp 18 07/23/21 16:26 BP 115/72 07/23/21 16:26 Pulse Ox 97 07/23/21 16:26 - Orders/Labs/Meds Meds: Medications Discontinued Medications Generic Name Dose Route Start Last Admin Trade Name Shanthi PRN Reason Stop Dose Admin Hydrocodone Bitart/Acetaminophen 1 tab 07/23/21 17:11 07/23/21 17:49 Acetaminophen/Hydrocodone 325-5 Mg Tab PO 07/23/21 17:12 1 tab ONETIME ONE Administration Prednisone 20 mg 07/23/21 17:11 07/23/21 17:49 Prednisone 20 Mg Tab PO 07/23/21 17:12 20 mg ONETIME ONE Administration - Re-Assessments/Exams Free Text/Narrative Re-Assessment/Exam: 07/23/21 19:31. She has back pain with sciatica. X rays no likely to be helpful. Have give a 5/325 hydrocodone, will start her on 20 mg prednisone daily for 1 week. She was able to walk out without difficulty despite her "'s concern". Discharge instr. as documented. Departure - Departure Time of Disposition: 18:30 Disposition: Home, Self-Care 01 Condition: Fair Clinical Impression: Sciatica Qualifiers: Laterality: right Qualified Code(s): M54.31 - Sciatica, right side Back pain Qualifiers: Back pain location: low back pain Chronicity: acute Back pain laterality: right Sciatica presence: with sciatica Sciatica laterality: sciatica of right side Qualified Code(s): M54.41 - Lumbago with sciatica, right side - Discharge Information Prescriptions: Hydrocodone/Acetaminophen [HYDROcodone-Acetaminophen 5-325 MG] 1 each PO Q6HR PRN #10 tab PRN Reason: Pain Instructions: Sciatica, [id number] Referrals: PCP,None [Primary Care Provider] - Forms: ED Department Discharge Additional Instructions: Rest back, alternate ice and heat, about 15 minutes of each at a time as needed. Prednisone 20 mg Q AM for the next week. 1/2 table hydrocodone along with 500 mg tylenol q6 hr or 3 to 4 times daily until pain is better. Prescription has been sent to [facility] pharmacy on [address]. Than tylenol 2 to 3 times daily as needed when the pain gets better. Use walker. Move slowly and carefully. See Dr Carrillo in about 5 to 7 days, call for appointment. Sepsis Event Note (ED) - Evaluation Sepsis Screening Result: No Definite Risk - Focused Exam Vital Signs: Vital Signs Temp Pulse Resp BP Pulse Ox 07/23/21 16:26 97.3 F 70 18 115/72 97
== END 2021-07-23 19:00 | disposition home or self-care (01) ==
LOC: JD.ED 16:19
DX: M54.41 Lumbago with sciatica, right side (principal); I11.0 Hypertensive heart disease with heart failure; I50.9 Heart failure, unspecified; E78.00 Pure hypercholesterolemia, unspecified; K21.9 Gastro-esophageal reflux disease without esophagitis; Z79.899 Other long term (current) drug therapy
CPT/HCPCS: 99283; A9270; J7512

== ENCOUNTER 2021-08-02 12:02 | Emergency (ER) | payer MEDICARE, OTHER ==
[2021-08-02] MEDS ORDERED: Sodium Chloride 0.9% 10 ML Syringe FLUSH PRN (12:28)
[2021-08-02 13:05] VITALS: BP 154/80; PULSE 66
[2021-08-02] MEDS ORDERED: Acetaminophen 325 MG Tab PO ONE (13:20)
--- NOTE | 2021-08-02 13:29 | CR ---
Chest: PA and lateral views of the chest were obtained. Comparison: Prior chest x-ray of 10/25/20. Heart size and mediastinum are within normal limits for AP technique. Pacemaker is noted. Lungs are clear with no acute parenchymal change. Bony structures are osteopenic. Slight degenerative change is scattered within the spine. Moderate degenerative change is seen within both shoulders. Impression: 1. Findings as described above. 2. Nothing acute is appreciated on 2-view chest x-ray. Diagnostic code #2
--- NOTE | 2021-08-02 15:19 | EDM.PDOC ---
ED HPI GENERAL MEDICAL PROBLEM - General Chief Complaint: General Stated Complaint: DULCE AMB Time Seen by Provider: 08/02/21 12:13 Source of Information: Reports: Patient, RN Notes Reviewed History Limitations: Reports: No Limitations - History of Present Illness INITIAL COMMENTS - FREE TEXT/NARRATIVE: Patient is an 86-year-old female presenting to the emergency department for evaluation from [facility] after having an episode of shortness of breath. Description is that the patient was "panting ". She states that she was feeling short of breath at that time, however it did resolve. She feels that after the EMS inserted her IV it got better. She denies any chest pain with the symptoms. She is not feeling short of breath now. She states overall she feels well at this time. She has had no cough, nasal congestion, fever, chills, nausea, vomiting, diarrhea, or headaches of recently. She did receive Covid vaccination as well as her booster. She is tested routinely at [facility] using rapid testing and has been found to be negative. - Related Data Allergies Allergy/AdvReac Type Severity Reaction Status Date / Time No Known Allergies Allergy Verified 08/02/21 12:12 Home Meds: Home Meds Fluticasone Propionate [Flonase] 1 dose NS DAILY 06/08/19 [History] Calcium Carbonate/Vitamin D3 [Calcium Carbonate/Vitamin D 600 MG-200 Unit] 1 tab PO DAILY 09/24/19 [History] Cyanocobalamin (Vitamin B-12) [B-12] 1,000 mcg PO DAILY 09/24/19 [History] Carbidopa/Levodopa [Sinemet 25-100 mg Tablet] 2.5 tab PO 05/30/20 [History] Melatonin 6 mg PO BEDTIME PRN 05/30/20 [History] Multivitamin [Poly-Vitamin] 1 tab PO DAILY 05/30/20 [History] Omeprazole Magnesium [Prilosec Otc] 20 mg PO DAILY 05/30/20 [History] Potassium Chloride 20 meq PO DAILY 05/30/20 [History] Psyllium Husk [Metamucil] 1 dose PO DAILY PRN 05/30/20 [History] Rosuvastatin [Crestor] 10 mg PO DAILY 05/30/20 [History] Ondansetron [Zofran ODT] 4 mg PO TID PRN 08/04/20 [History] amLODIPine [Norvasc] 5 mg PO DAILY 08/04/20 [History] Apixaban [Eliquis] 1 tab PO BID 02/19/21 [History] Furosemide 40 mg PO DAILY 06/24/21 [History] Metoprolol Tartrate [Lopressor] 12.5 mg PO Q12H 06/24/21 [History] Mirtazapine 7.5 mg PO BEDTIME 06/24/21 [History] Moxifloxacin [Vigamox 0.5% Ophth Soln] 1 drop EYEBOTH ASDIRECTED PRN 06/24/21 [History] allopurinoL [Zyloprim] 100 mg PO DAILY 06/24/21 [History] guaiFENesin [Mucinex] 1,200 mg PO BID 06/24/21 [History] polyethylene glycoL 3350 [MiraLAX] 1 scoop PO DAILY 06/24/21 [History] predniSONE 20 mg PO DAILY #7 tab 07/24/21 [Rx] Hydrocodone/Acetaminophen [HYDROcodone-Acetaminophen 5-325 MG] 0.5 each PO Q6HR PRN 08/02/21 [History] Past Medical History HEENT History: Reports: Cataract, Hard of Hearing, Impaired Vision, Other (See Below) Other HEENT History: bilateral hearing aides. 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 Musculoskeletal History: Reports: Fracture, Gout, Osteoarthritis, Osteoporosis, Other (See Below) Other Musculoskeletal History: restless leg syndrome, right wrist carpal tunnel Neurological History: Reports: Parkinson's, Other (See Below) Other Neuro History: acoustic nerve injury, chronic hemifacial spasm Psychiatric History: Reports: None Endocrine/Metabolic History: Reports: None Hematologic History: Reports: Anemia, Iron Deficiency Immunologic History: Reports: None Oncologic (Cancer) History: Reports: Colon Dermatologic History: Reports: Other (See Below) Other Dermatologic History: phlebitis and thrombophlebitis - Infectious Disease History Infectious Disease History: Reports: Chicken Pox, Measles, Mumps, Shingles - Past Surgical History Head Surgeries/Procedures: Reports: None HEENT Surgical History: Reports: Cataract Surgery, Tonsillectomy Cardiovascular Surgical History: Reports: Pacer Respiratory Surgical History: Reports: None GI Surgical History: Reports: Cholecystectomy, Colon, Colonoscopy Female Surgical History: Reports: Hysterectomy Endocrine Surgical History: Reports: None Neurological Surgical History: Reports: None Musculoskeletal Surgical History: Reports: Knee Replacement Oncologic Surgical History: Reports: None Dermatological Surgical History: Reports: None Social & Family History - Family History Family Medical History: No Pertinent Family History - Tobacco Use Tobacco Use Status *Q: Never Tobacco User - Caffeine Use Caffeine Use: Reports: Coffee Caffeine Use Comment: 2 cups a day - Living Situation & Occupation Living situation: Reports: Occupation: Retired ED ROS GENERAL - Review of Systems Review Of Systems: See Below Constitutional: Reports: No Symptoms. Denies: Fever, Chills HEENT: Reports: No Symptoms Respiratory: Reports: Shortness of Breath. Denies: Pleuritic Chest Pain, Cough Cardiovascular: Reports: No Symptoms. Denies: Chest Pain, Lightheadedness, Syncope Endocrine: Reports: No Symptoms GI/Abdominal: Reports: No Symptoms : Reports: No Symptoms Musculoskeletal: Reports: No Symptoms Skin: Reports: No Symptoms Neurological: Reports: No Symptoms Psychiatric: Reports: No Symptoms Hematologic/Lymphatic: Reports: No Symptoms Immunologic: Reports: No Symptoms ED EXAM, GENERAL - Physical Exam Exam: See Below Exam Limited By: No Limitations General Appearance: Alert, WD/WN, No Apparent Distress Eye Exam: Bilateral Eye: PERRL Respiratory/Chest: No Respiratory Distress, Lungs Clear, Normal Breath Sounds, No Accessory Muscle Use, Chest Non-Tender Cardiovascular: Normal Peripheral Pulses, Regular Rate, Rhythm, No Edema, No Gallop, No JVD, No Murmur, No Rub GI/Abdominal: Normal Bowel Sounds, Soft, Non-Tender, No Organomegaly, No Distention, No Abnormal Bruit, No Mass Neurological: Alert, Oriented, Normal Cognition, Other (Hard of hearing) Psychiatric: Normal Affect, Normal Mood Skin Exam: Warm, Dry, Intact, Normal Color, No Rash #1 Interpretation EKG Date: 08/02/21 Time: 12:42 Rhythm: NSR Rate (Beats/Min): 64 Reading: LAD-Left Reading Deviation P-Wave: Present QRS: Normal ST-T: Normal QT: Normal Course - Vital Signs Last Recorded V/S: Last Vital Signs Temp 98.3 F 08/02/21 13:04 Pulse 66 08/02/21 13:04 Resp 17 08/02/21 13:04 BP 154/80 H 08/02/21 13:04 Pulse Ox 98 08/02/21 13:04 - Orders/Labs/Meds Labs: Laboratory Tests 08/02/21 08/02/21 08/02/21 Range/Units 12:15 12:15 12:15 WBC 8.71 (3.98-10.04) K/mm3 RBC 4.54 (3.98-5.22) M/mm3 Hgb 13.8 (11.2-15.7) gm/dl Hct 43.8 (34.1-44.9) % MCV 96.5 H (79.4-94.8) fl MCH 30.4 (25.6-32.2) pg MCHC 31.5 L (32.2-35.5) g/dl RDW Std Deviation 51.7 H (36.4-46.3) fL Plt Count 251 (182-369) K/mm3 MPV 9.4 (9.4-12.3) fl Neut % (Auto) 79.9 H (34.0-71.1) % Lymph % (Auto) 9.9 L (19.3-51.7) % [place] % (Auto) 8.2 (4.7-12.5) % Eos % (Auto) 1.4 (0.7-5.8) Baso % (Auto) 0.3 (0.1-1.2) % Neut # (Auto) 6.96 H (1.56-6.13) K/mm3 Lymph # (Auto) 0.86 L (1.18-3.74) K/mm3 [place] # (Auto) 0.71 H (0.24-0.36) K/mm3 Eos # (Auto) 0.12 (0.04-0.36) K/mm3 Baso # (Auto) 0.03 (0.01-0.08) K/mm3 D-Dimer, Quantitative 0.30 (0.19-0.50) mg/L Sodium 141 (136-145) mEq/L Potassium 3.5 (3.5-5.1) mEq/L Chloride 102 (98-107) mEq/L Carbon Dioxide 32 (21-32) mEq/L Anion Gap 10.5 (5-15) BUN 27 H (7-18) mg/dL Creatinine 1.2 H (0.55-1.02) mg/dL Est Cr Clr Drug Dosing TNP Estimated GFR (MDRD) 42 (>60) mL/min BUN/Creatinine Ratio 22.5 H (14-18) Glucose 115 H (70-99) mg/dL Calcium 9.2 (8.5-10.1) mg/dL Total Bilirubin 0.4 (0.2-1.0) mg/dL AST 20 (15-37) U/L ALT 16 (14-59) U/L Alkaline Phosphatase 57 (46-116) U/L Troponin I < 0.017 (0.00-0.056) ng/mL C-Reactive Protein <0.2 (<1.0) mg/dL NT-Pro-B Natriuret Pep (0-450) pg/mL Total Protein 6.1 L (6.4-8.2) g/dl Albumin 3.3 L (3.4-5.0) g/dl Globulin 2.8 gm/dL Albumin/Globulin Ratio 1.2 (1-2) Urine Color (Yellow) Urine Appearance (Clear) Urine pH (5.0-8.0) Ur Specific [place] (1.005-1.030) Urine Protein (Negative) Urine Glucose (UA) (Negative) Urine Ketones (Negative) Urine Occult Blood (Negative) Urine Nitrite (Negative) Urine Bilirubin (Negative) Urine Urobilinogen (0.2-1.0) Ur Leukocyte Esterase (Negative) Urine RBC (0-5) /hpf Urine WBC (0-5) /hpf Ur Epithelial Cells (0-5) /hpf Urine Bacteria (FEW) /hpf Urine Mucus (FEW) /hpf Influenza Type A RNA (NEGATIVE) Influenza Type B RNA (NEGATIVE) SARS-CoV-2 RNA (ROSIBEL) (NEGATIVE) 08/02/21 08/02/21 08/02/21 Range/Units 12:50 14:20 15:15 WBC (3.98-10.04) K/mm3 RBC (3.98-5.22) M/mm3 Hgb (11.2-15.7) gm/dl Hct (34.1-44.9) % MCV (79.4-94.8) fl MCH (25.6-32.2) pg MCHC (32.2-35.5) g/dl RDW Std Deviation (36.4-46.3) fL Plt Count (182-369) K/mm3 MPV (9.4-12.3) fl Neut % (Auto) (34.0-71.1) % Lymph % (Auto) (19.3-51.7) % [place] % (Auto) (4.7-12.5) % Eos % (Auto) (0.7-5.8) Baso % (Auto) (0.1-1.2) % Neut # (Auto) (1.56-6.13) K/mm3 Lymph # (Auto) (1.18-3.74) K/mm3 [place] # (Auto) (0.24-0.36) K/mm3 Eos # (Auto) (0.04-0.36) K/mm3 Baso # (Auto) (0.01-0.08) K/mm3 D-Dimer, Quantitative (0.19-0.50) mg/L Sodium (136-145) mEq/L Potassium (3.5-5.1) mEq/L Chloride (98-107) mEq/L Carbon Dioxide (21-32) mEq/L Anion Gap (5-15) BUN (7-18) mg/dL Creatinine (0.55-1.02) mg/dL Est Cr Clr Drug Dosing Estimated GFR (MDRD) (>60) mL/min BUN/Creatinine Ratio (14-18) Glucose (70-99) mg/dL Calcium (8.5-10.1) mg/dL Total Bilirubin (0.2-1.0) mg/dL AST (15-37) U/L ALT (14-59) U/L Alkaline Phosphatase (46-116) U/L Troponin I (0.00-0.056) ng/mL C-Reactive Protein (<1.0) mg/dL NT-Pro-B Natriuret Pep 1389 H (0-450) pg/mL Total Protein (6.4-8.2) g/dl Albumin (3.4-5.0) g/dl Globulin gm/dL Albumin/Globulin Ratio (1-2) Urine Color Yellow (Yellow) Urine Appearance Clear (Clear) Urine pH 7.0 (5.0-8.0) Ur Specific [place] 1.020 (1.005-1.030) Urine Protein Negative (Negative) Urine Glucose (UA) Negative (Negative) Urine Ketones Negative (Negative) Urine Occult Blood Negative (Negative) Urine Nitrite Negative (Negative) Urine Bilirubin Negative (Negative) Urine Urobilinogen 0.2 (0.2-1.0) Ur Leukocyte Esterase Negative (Negative) Urine RBC 0-5 (0-5) /hpf Urine WBC 0-5 (0-5) /hpf Ur Epithelial Cells 0-5 (0-5) /hpf Urine Bacteria Rare (FEW) /hpf Urine Mucus Not seen (FEW) /hpf Influenza Type A RNA Negative (NEGATIVE) Influenza Type B RNA Negative (NEGATIVE) SARS-CoV-2 RNA (ROSIBEL) Negative (NEGATIVE) Meds: Medications Discontinued Medications Generic Name Dose Route Start Last Admin Trade Name Freq PRN Reason Stop Dose Admin Acetaminophen 650 mg 08/02/21 13:20 08/02/21 13:29 Acetaminophen 325 Mg Tab PO 08/02/21 13:21 650 mg NOW ONE Administration Sodium Chloride 10 ml 08/02/21 12:28 08/02/21 12:43 Sodium Chloride 0.9% 10 Ml Syringe FLUSH 10 ml ASDIRECTED PRN Administration Keep Vein Open - Re-Assessments/Exams Free Text/Narrative Re-Assessment/Exam: Patient is an 86-year-old female presenting to the emergency department for evaluation after having an episode of shortness of breath. She states it was brief in nature and resolved after the ambulance and started her IV. She is feeling well at this time. Denies any chest pain with the symptoms. Exam is unremarkable. Lung sounds are clear to auscultation. She was slightly tachypneic on triage at 24. Oxygen saturations were normal at 98% pulse 74. I have ordered blood work, chest x-ray, EKG, urinalysis, Covid and influenza testing. 08/02/21 15:19 Hematology significant for BUN elevated 27, creatinine 1.2, proBNP 1389. Otherwise unremarkable. Troponin is undetectably low. D-dimer normal at 0.30. Urinalysis is negative for infection. Chest x-ray shows no acute abnormalities. EKG shows normal sinus rhythm at 64 with no acute abnormalities. Unfortunately there was a delay in collecting the Covid and influenza test. This has been done, however I will call the patient with results as opposed to making her wait. She is anxious to go home. Discussed return precautions. Discharge instructions as document. Departure - Departure Time of Disposition: 15:19 Disposition: Home, Self-Care 01 Condition: Good Clinical Impression: Dyspnea Qualifiers: Dyspnea type: unspecified Qualified Code(s): R06.00 - Dyspnea, unspecified - Discharge Information *PRESCRIPTION DRUG MONITORING PROGRAM REVIEWED*: No *COPY OF PRESCRIPTION DRUG MONITORING REPORT IN PATIENT LEO: No Instructions: Shortness of Breath, Adult, [id number] Referrals: Emily Carrillo MD [Primary Care Provider] - Forms: ED Department Discharge Additional Instructions: Go home and rest. Follow-up with primary care provider at next available visit. We will call you with the results of your Covid and influenza testing when they are available. Return to ER for recurrence of rest of breath, or any other concerning symptoms. Sepsis Event Note (ED) - Evaluation Sepsis Screening Result: No Definite Risk
[2021-08-02 15:58] LABS: CORONAVIRUS COVID-19 NAA NEGATIVE (NEGATIVE)
== END 2021-08-02 15:30 | disposition home or self-care (01) ==
LOC: JD.ED 12:02
DX: R06.00 Dyspnea, unspecified (principal); E78.00 Pure hypercholesterolemia, unspecified; K21.9 Gastro-esophageal reflux disease without esophagitis; I13.0 Hypertensive heart and chronic kidney disease with heart failure and stage 1 through stage 4 chronic kidney disease, or unspecified chronic kidney disease; N18.30 Chronic kidney disease, stage 3 unspecified; I50.9 Heart failure, unspecified; M10.9 Gout, unspecified; Z79.899 Other long term (current) drug therapy; Z79.01 Long term (current) use of anticoagulants; Z20.822 Contact with and (suspected) exposure to COVID-19
CPT/HCPCS: 0240U; 36415; 71046; 80053; 81001; 83880; 84484; 85025; 85379; 86140; 93005; 99285; A9270

== ENCOUNTER 2021-10-19 09:41 | Inpatient (IN) | payer MEDICARE, OTHER ==
[2021-10-19] MEDS ORDERED: Ondansetron 4 MG/2 ML SDV IVPUSH ONE (10:30)
[2021-10-19] MEDS: Sodium Chloride 0.9% 10 ML Syringe FLUSH PRN ×2 (10:45→11:47)
[2021-10-19] MEDS ORDERED: LORazepam 2 MG/ML SDV IVPUSH ONE (11:28)
[2021-10-19 11:48] LABS: CORONAVIRUS COVID-19 NAA NEGATIVE (NEGATIVE)
[2021-10-19] MEDS ORDERED: ALPRAZolam 0.25 MG Tab PO PRN (16:30)
[2021-10-19] MEDS ORDERED: Psyllium Husk Powder Sugar Free 5.85 GM Packet PO PRN (16:30)
[2021-10-19] MEDS ORDERED: oxyCODONE 5 MG Tab PO PRN (16:34)
[2021-10-19] MEDS ORDERED: Acetaminophen 325 MG Tab PO PRN (16:34)
[2021-10-19] MEDS: Metoprolol Tartrate 25 MG Tab PO SCH ×2 (18:40→20:04)
[2021-10-19] MEDS: LEVODOPA PO SCH (19:59)
[2021-10-19] MEDS: CARBIDOPA PO SCH (19:59)
[2021-10-19] MEDS: Apixaban 5 MG Tab PO SCH (20:02)
[2021-10-19] MEDS: traZODone 50 MG Tab PO SCH (20:03)
[2021-10-19] MEDS: Melatonin 3 MG Tab PO SCH (20:06)
[2021-10-19] MEDS: FLUOROURACIL 5% TOP SCH (20:07)
[2021-10-20] MEDS: Formoterol/Mometasone 100-5 MCG 8.8 GM Inhaler IH SCH ×3 (05:46→20:05)
[2021-10-20] MEDS: Pantoprazole 40 MG Tab.CR PO SCH (07:44)
[2021-10-20] MEDS: CARBIDOPA PO SCH ×2 (07:44→13:57)
[2021-10-20] MEDS: Furosemide 20 MG Tab PO SCH ×2 (07:44→12:14)
[2021-10-20] MEDS: LEVODOPA PO SCH ×2 (07:44→13:57)
[2021-10-20] MEDS ORDERED: Potassium Chloride 10 MEQ Tab.ER PO SCH (09:00)
[2021-10-20] MEDS: Polyethylene Glycol 3350 Powder 17 GM Packet PO SCH (09:06)
[2021-10-20] MEDS: amLODIPine 2.5 MG Tab PO SCH (09:08)
[2021-10-20] MEDS: Metoprolol Tartrate 25 MG Tab PO SCH ×2 (09:08→21:12)
[2021-10-20] MEDS: Apixaban 5 MG Tab PO SCH ×2 (09:08→21:12)
[2021-10-20] MEDS: Allopurinol 100 MG Tab PO SCH (09:08)
[2021-10-20] MEDS: Fluticasone NASAL Spray 16 GM Bottle NASBOTH SCH (09:09)
[2021-10-20] MEDS: FLUOROURACIL 5% TOP SCH ×2 (09:09→21:17)
[2021-10-20] MEDS: traZODone 50 MG Tab PO SCH (21:12)
[2021-10-20] MEDS: Melatonin 3 MG Tab PO SCH (21:12)
[2021-10-21] MEDS: Furosemide 20 MG Tab PO SCH ×2 (06:37→11:49)
[2021-10-21] MEDS: Pantoprazole 40 MG Tab.CR PO SCH (06:37)
[2021-10-21] MEDS: Formoterol/Mometasone 100-5 MCG 8.8 GM Inhaler IH SCH (07:59)
[2021-10-21] MEDS: amLODIPine 2.5 MG Tab PO SCH (08:58)
[2021-10-21] MEDS: Metoprolol Tartrate 25 MG Tab PO SCH (08:58)
[2021-10-21] MEDS: Allopurinol 100 MG Tab PO SCH (08:58)
[2021-10-21] MEDS: Apixaban 5 MG Tab PO SCH (08:58)
[2021-10-21] MEDS: FLUOROURACIL 5% TOP SCH (08:59)
[2021-10-21] MEDS: Fluticasone NASAL Spray 16 GM Bottle NASBOTH SCH (08:59)
[2021-10-21] MEDS ORDERED: Potassium Chloride 20 MEQ Tab.ER PO SCH (09:00)
[2021-10-21] MEDS: Polyethylene Glycol 3350 Powder 17 GM Packet PO SCH (09:18)
[2021-10-21 11:25] VITALS: BP 121/46; PULSE 60
== END 2021-10-21 14:24 | disposition home or self-care (01) | DRG 948 ==
LOC: SUPCPDRO 09:41 → JD.ED 09:41 → JD.MS 16:34
PROVIDERS: ADMIT Internal Medicine; ATTEND Internal Medicine
DX: R41.0 Disorientation, unspecified (principal); T42.8X5A Adverse effect of antiparkinsonism drugs and other central muscle-tone depressants, initial encounter; I48.91 Unspecified atrial fibrillation; I50.9 Heart failure, unspecified; R62.7 Adult failure to thrive; N18.30 Chronic kidney disease, stage 3 unspecified; E86.0 Dehydration; G20 Parkinson's disease; I13.0 Hypertensive heart and chronic kidney disease with heart failure and stage 1 through stage 4 chronic kidney disease, or unspecified chronic kidney disease; R44.0 Auditory hallucinations; Z20.822 Contact with and (suspected) exposure to COVID-19; Z66 Do not resuscitate; H91.90 Unspecified hearing loss, unspecified ear; H54.7 Unspecified visual loss; D50.9 Iron deficiency anemia, unspecified; E78.00 Pure hypercholesterolemia, unspecified; K59.09 Other constipation; K21.9 Gastro-esophageal reflux disease without esophagitis; M19.90 Unspecified osteoarthritis, unspecified site; I12.9 Hypertensive chronic kidney disease with stage 1 through stage 4 chronic kidney disease, or unspecified chronic kidney disease; M81.0 Age-related osteoporosis without current pathological fracture; M10.9 Gout, unspecified; D63.1 Anemia in chronic kidney disease; E61.1 Iron deficiency; H91.93 Unspecified hearing loss, bilateral; Z96.659 Presence of unspecified artificial knee joint; G25.81 Restless legs syndrome; Z90.49 Acquired absence of other specified parts of digestive tract; Z90.710 Acquired absence of both cervix and uterus; Z79.899 Other long term (current) drug therapy; Z86.718 Personal history of other venous thrombosis and embolism; Z79.01 Long term (current) use of anticoagulants; Z87.01 Personal history of pneumonia (recurrent); Z95.0 Presence of cardiac pacemaker; Z85.038 Personal history of other malignant neoplasm of large intestine
CPT/HCPCS: 0240U; 36415; 70450; 71045; 80053; 81003; 83735; 83880; 84484; 85025; 85379; 85610; 85730; 86140; 93005; 94640; 94760; 94761; 97116; 97161; 51702; 96374; 96375; 99285-25; A9270-GY; J2060; J2405

== ENCOUNTER 2022-10-24 07:06 | Inpatient (IN) | payer MEDICARE, OTHER ==
[2022-10-24] MEDS ORDERED: Dextrose 5%-0.9% NaCl 1,000 ML IV SCH (07:30)
[2022-10-24 08:33] LABS: ESTIMATED GFR 40 mL/min (>60)
[2022-10-24] MEDS ORDERED: Iopamidol 612 MG/ML 100 ML Bottle IVPUSH ONE (09:08)
[2022-10-24] MEDS ORDERED: Sodium Chloride 0.9% 10 ML Syringe FLUSH ONE (09:20)
[2022-10-24 09:56] LABS: CORONAVIRUS COVID-19 NAA NEGATIVE (NEGATIVE)
[2022-10-24] MEDS ORDERED: Polyethylene Glycol 3350 Powder 17 GM Packet PO ONE (12:42)
[2022-10-24] MEDS: Potassium Chloride 10 MEQ in Premix Bag 1 BAG IV SCH ×2 (13:58→15:47)
[2022-10-24] MEDS ORDERED: Albuterol 6.7 GM Inhaler INH PRN (16:32)
[2022-10-24] MEDS ORDERED: Cyclobenzaprine 10 MG Tab PO PRN (16:32)
[2022-10-24] MEDS ORDERED: Ondansetron 4 MG Tab.DIS PO PRN (16:53)
[2022-10-24] MEDS ORDERED: Acetaminophen 325 MG Tab PO PRN (16:53)
[2022-10-24] MEDS ORDERED: oxyCODONE 5 MG Tab PO PRN (16:53)
[2022-10-24] MEDS: Lactated Ringers 1,000 ML IV SCH (18:07)
[2022-10-24] MEDS: Formoterol/Mometasone 100-5 MCG 8.8 GM Inhaler IH SCH (20:06)
[2022-10-24] MEDS: Melatonin 3 MG Tab PO SCH (20:21)
[2022-10-24] MEDS: traZODone 50 MG Tab PO SCH (20:21)
[2022-10-24] MEDS: Carboxymethylcellulose Sodium 1% Ophth Gel 15 ML Bottle EYEBOTH SCH (20:28)
[2022-10-25 06:01] LABS: ESTIMATED GFR 61 mL/min (>60)
[2022-10-25] MEDS: Pantoprazole 40 MG Tab.CR PO SCH (06:27)
[2022-10-25] MEDS: Furosemide 40 MG Tab PO SCH (06:27)
[2022-10-25] MEDS: Formoterol/Mometasone 100-5 MCG 8.8 GM Inhaler IH SCH ×2 (08:26→21:05)
[2022-10-25] MEDS: Oxybutynin 5 MG Tab.ER PO SCH (08:35)
[2022-10-25] MEDS: Rivaroxaban 15 MG Tab PO SCH (08:35)
[2022-10-25] MEDS: Allopurinol 100 MG Tab PO SCH (08:35)
[2022-10-25] MEDS: Polyethylene Glycol 3350 Powder 17 GM Packet PO SCH (08:35)
[2022-10-25] MEDS: Fluticasone NASAL Spray 16 GM Bottle NASBOTH SCH (08:39)
[2022-10-25] MEDS: Carboxymethylcellulose Sodium 1% Ophth Gel 15 ML Bottle EYEBOTH SCH ×2 (08:40→20:14)
[2022-10-25] MEDS: amLODIPine 5 MG Tab PO SCH (08:41)
[2022-10-25] MEDS ORDERED: Dexamethasone/Neomycin/Polymyxin B Ophth Oint 3.5 GM Tube EYERT SCH (09:00)
[2022-10-25] MEDS: Furosemide 20 MG Tab PO SCH (11:09)
[2022-10-25] MEDS: Dexamethasone/Neomycin/Polymyxin B Ophth Oint 3.5 GM Tube EYERT SCH (11:10)
[2022-10-25] MEDS: Lactated Ringers 1,000 ML IV SCH (11:11)
[2022-10-25] MEDS: traZODone 50 MG Tab PO SCH (20:14)
[2022-10-25] MEDS: Melatonin 3 MG Tab PO SCH (20:15)
[2022-10-26] MEDS: Pantoprazole 40 MG Tab.CR PO SCH (08:48)
[2022-10-26] MEDS: Furosemide 40 MG Tab PO SCH (08:48)
[2022-10-26] MEDS: Formoterol/Mometasone 100-5 MCG 8.8 GM Inhaler IH SCH ×2 (09:37→20:31)
[2022-10-26] MEDS: Oxybutynin 5 MG Tab.ER PO SCH (09:44)
[2022-10-26] MEDS: Rivaroxaban 15 MG Tab PO SCH (09:44)
[2022-10-26] MEDS: amLODIPine 5 MG Tab PO SCH (09:44)
[2022-10-26] MEDS: Polyethylene Glycol 3350 Powder 17 GM Packet PO SCH (09:45)
[2022-10-26] MEDS: Carboxymethylcellulose Sodium 1% Ophth Gel 15 ML Bottle EYEBOTH SCH ×2 (09:45→21:46)
[2022-10-26] MEDS: Allopurinol 100 MG Tab PO SCH (09:45)
[2022-10-26] MEDS: Fluticasone NASAL Spray 16 GM Bottle NASBOTH SCH (09:47)
[2022-10-26] MEDS: Dexamethasone/Neomycin/Polymyxin B Ophth Oint 3.5 GM Tube EYERT SCH (09:47)
[2022-10-26] MEDS: Furosemide 20 MG Tab PO SCH (12:00)
[2022-10-26] MEDS ORDERED: CARBIDOPA PO SCH (12:00)
[2022-10-26] MEDS ORDERED: LEVODOPA PO SCH (12:00)
[2022-10-26] MEDS: LEVODOPA PO SCH ×2 (14:49→18:00)
[2022-10-26] MEDS: CARBIDOPA PO SCH ×2 (14:49→18:00)
[2022-10-26] MEDS ORDERED: Non-Formulary Medication 1 Each (Carbidopa/Levodopa [Rytary Er 48.75 Mg-195 Mg Cap] 1 EACH PO SCH (19:00)
[2022-10-26] MEDS: Melatonin 3 MG Tab PO SCH (21:46)
[2022-10-26] MEDS: traZODone 50 MG Tab PO SCH (21:46)
[2022-10-26] MEDS: Amoxicillin 125 MG/5 ML Susp 80 ML Bottle PO SCH (21:46)
[2022-10-27] MEDS: Furosemide 40 MG Tab PO SCH (05:46)
[2022-10-27] MEDS: Pantoprazole 40 MG Tab.CR PO SCH (05:47)
[2022-10-27] MEDS: amLODIPine 5 MG Tab PO SCH (08:19)
[2022-10-27] MEDS: LEVODOPA PO SCH ×2 (08:19→12:02)
[2022-10-27] MEDS: Rivaroxaban 15 MG Tab PO SCH (08:19)
[2022-10-27] MEDS: CARBIDOPA PO SCH ×2 (08:19→12:02)
[2022-10-27] MEDS: Carboxymethylcellulose Sodium 1% Ophth Gel 15 ML Bottle EYEBOTH SCH (08:20)
[2022-10-27] MEDS: Oxybutynin 5 MG Tab.ER PO SCH (08:20)
[2022-10-27] MEDS: Fluticasone NASAL Spray 16 GM Bottle NASBOTH SCH (08:20)
[2022-10-27] MEDS: Polyethylene Glycol 3350 Powder 17 GM Packet PO SCH (08:20)
[2022-10-27] MEDS: Allopurinol 100 MG Tab PO SCH (08:20)
[2022-10-27] MEDS: Amoxicillin 125 MG/5 ML Susp 80 ML Bottle PO SCH (08:28)
[2022-10-27] MEDS: Dexamethasone/Neomycin/Polymyxin B Ophth Oint 3.5 GM Tube EYERT SCH (08:29)
[2022-10-27] MEDS: Formoterol/Mometasone 100-5 MCG 8.8 GM Inhaler IH SCH (09:33)
[2022-10-27] MEDS: Furosemide 20 MG Tab PO SCH (12:02)
[2022-10-27 12:43] VITALS: BP 139/63; PULSE 74
== END 2022-10-27 13:39 | DRG 57 ==
LOC: JD.ED 07:06 → JD.ICU 16:44 → JD.MS 10-25 19:00
PROVIDERS: ADMIT Emergency Medicine; ATTEND Internal Medicine
DX: G20 Parkinson's disease (principal); I48.20 Chronic atrial fibrillation, unspecified; N18.32 Chronic kidney disease, stage 3b; K59.00 Constipation, unspecified; I50.9 Heart failure, unspecified; R29.6 Repeated falls; Z66 Do not resuscitate; K21.9 Gastro-esophageal reflux disease without esophagitis; M10.9 Gout, unspecified; M19.90 Unspecified osteoarthritis, unspecified site; J44.9 Chronic obstructive pulmonary disease, unspecified; R62.7 Adult failure to thrive; H91.90 Unspecified hearing loss, unspecified ear; F02.80 Dementia in other diseases classified elsewhere, unspecified severity, without behavioral disturbance, psychotic disturbance, mood disturbance, and anxiety; Z96.659 Presence of unspecified artificial knee joint; R13.10 Dysphagia, unspecified; K59.09 Other constipation; E86.0 Dehydration; K44.9 Diaphragmatic hernia without obstruction or gangrene; Z20.822 Contact with and (suspected) exposure to COVID-19; M81.0 Age-related osteoporosis without current pathological fracture; G25.81 Restless legs syndrome; D50.9 Iron deficiency anemia, unspecified; Z79.899 Other long term (current) drug therapy; Z68.28 Body mass index [BMI] 28.0-28.9, adult; Z86.718 Personal history of other venous thrombosis and embolism; Z85.038 Personal history of other malignant neoplasm of large intestine; Z98.49 Cataract extraction status, unspecified eye; Z90.89 Acquired absence of other organs; Z90.49 Acquired absence of other specified parts of digestive tract; Z90.710 Acquired absence of both cervix and uterus; Z98.890 Other specified postprocedural states; Z86.73 Personal history of transient ischemic attack (TIA), and cerebral infarction without residual deficits; Z79.51 Long term (current) use of inhaled steroids
CPT/HCPCS: 0241U; 36410; 36415; 70450; 70450-26; 71045; 71045-26; 74177; 74177-26; 80053; 81001; 82977; 83605; 83690; 83735; 83880; 84484; 85025; 85610; 86140; 87040; 92610-GN; 93005; 93010; 94640; 94761; 96361; 96365; 96366; 97113-GP; 97162-GP; 97166-GO; 97530-GO; 97530-GP; 99284; 99285-25; A9270-GY; J3480; J3490; J7042; J7120

== ENCOUNTER 2023-02-22 22:36 | Observation (INO) | payer MEDICARE, OTHER ==
[2023-02-22] MEDS ORDERED: Lidocaine 1% 10 ML MDV INJECT ONE (22:50)
[2023-02-22] MEDS ORDERED: Diphtheria,Pertussis(Acell),Tetanus Vaccine 0.5 ML Syringe IM ONE (23:27)
[2023-02-22] MEDS ORDERED: Cephalexin 500 MG Cap PO ONE (23:47)
[2023-02-23] MEDS: Acetaminophen 325 MG Tab PO PRN ×3 (01:26→20:22)
[2023-02-23] MEDS ORDERED: Bisacodyl 5 MG Tab PO PRN (06:27)
[2023-02-23] MEDS ORDERED: Non-Formulary Medication 1 Each (Carbidopa/Levodopa [Rytary Er 48.75 Mg-195 Mg Cap] 1 EACH PO SCH (07:00)
[2023-02-23 09:09] LABS: BASOPHILS ABSOLUTE AUTO 0.03 K/mm3 (0.01-0.08); BASOPHILS PERCENT AUTO 0.3 % (0.1-1.2); EOSINOPHILS ABSOLUTE AUTO 0.17 K/mm3 (0.04-0.36); EOSINOPHILS PERCENT AUTO 1.9 (0.7-5.8); HEMATOCRIT 37.8 % (34.1-44.9); HEMOGLOBIN 11.7 gm/dl (11.2-15.7); IMMATURE GRAN ABSOLUTE AUTO 0.02 K/mm3 (0.00-0.10); IMMATURE GRAN PERCENT AUTO 0.2 % (<=1.0); LYMPHOCYTES ABSOLUTE AUTO 0.62 K/mm3 (1.18-3.74); LYMPHOCYTES PERCENT AUTO 6.8 % (19.3-51.7); MEAN CORPUSCULAR VOLUME 96.9 fl (79.4-94.8); MEAN PLATELET VOLUME 9.7 fl (9.4-12.3); MONOCYTES ABSOLUTE AUTO 0.61 K/mm3 (0.24-0.36); MONOCYTES PERCENT AUTO 6.7 % (4.7-12.5); NEUTROPHILS ABSOLUTE AUTO 7.65 K/mm3 (1.56-6.13); NEUTROPHILS PERCENT AUTO 84.1 % (34.0-71.1); PLATELET COUNT,PLT 206 K/mm3 (182-369)
[2023-02-23 09:12] LABS: BUN/CREATININE RATIO 28.5 (14-18); CREATININE 1.3 mg/dL (0.55-1.02); EST CRCL DRUG DOSING (CG) 27.46 mL/min
[2023-02-23] MEDS: Cephalexin 500 MG Cap PO SCH ×2 (09:44→20:22)
[2023-02-23] MEDS ORDERED: Albuterol 6.7 GM Inhaler INH PRN (13:01)
[2023-02-23] MEDS ORDERED: Pantoprazole 40 MG Tab.CR PO PRN (13:05)
[2023-02-23] MEDS ORDERED: Hyoscyamine 0.125 MG Tab.SL SL PRN (13:07)
[2023-02-23] MEDS: Potassium Chloride 20 MEQ Tab.ER PO SCH ×2 (13:30→20:22)
[2023-02-23] MEDS: amLODIPine 5 MG Tab PO SCH (13:30)
[2023-02-23] MEDS: Furosemide 40 MG Tab PO SCH ×2 (13:31→20:20)
[2023-02-23] MEDS: Polyethylene Glycol 3350 Powder 17 GM Packet PO SCH (13:33)
[2023-02-23] MEDS: Allopurinol 100 MG Tab PO SCH (13:33)
[2023-02-23] MEDS ORDERED: traZODone 50 MG Tab PO SCH (21:00)
[2023-02-24 05:25] LABS: BASOPHILS ABSOLUTE AUTO 0.04 K/mm3 (0.01-0.08); BASOPHILS PERCENT AUTO 0.4 % (0.1-1.2); EOSINOPHILS ABSOLUTE AUTO 0.33 K/mm3 (0.04-0.36); EOSINOPHILS PERCENT AUTO 3.6 (0.7-5.8); HEMATOCRIT 38.9 % (34.1-44.9); HEMOGLOBIN 12.2 gm/dl (11.2-15.7); IMMATURE GRAN ABSOLUTE AUTO 0.02 K/mm3 (0.00-0.10); IMMATURE GRAN PERCENT AUTO 0.2 % (<=1.0); LYMPHOCYTES ABSOLUTE AUTO 0.76 K/mm3 (1.18-3.74); LYMPHOCYTES PERCENT AUTO 8.3 % (19.3-51.7); MEAN CORPUSCULAR HEMOGLOBIN 30.1 pg (25.6-32.2); MEAN CORPUSCULAR HGB CONC 31.4 g/dl (32.2-35.5); MEAN PLATELET VOLUME 10.2 fl (9.4-12.3); MONOCYTES ABSOLUTE AUTO 0.99 K/mm3 (0.24-0.36); MONOCYTES PERCENT AUTO 10.8 % (4.7-12.5); NEUTROPHILS ABSOLUTE AUTO 7.02 K/mm3 (1.56-6.13); NEUTROPHILS PERCENT AUTO 76.7 % (34.0-71.1); PLATELET COUNT,PLT 192 K/mm3 (182-369); RED BLOOD CELL COUNT 4.05 M/mm3 (3.98-5.22); WHITE BLOOD CELL COUNT,WBC 9.16 K/mm3 (3.98-10.04)
[2023-02-24 06:10] LABS: ANION GAP 8.8 (5-15); BUN/CREATININE RATIO 29.1 (14-18); CALCIUM 10.2 mg/dL (8.5-10.1); CREATININE 1.1 mg/dL (0.55-1.02); EST CRCL DRUG DOSING (CG) 32.46 mL/min; POTASSIUM,K 2.8 mEq/L (3.5-5.1)
[2023-02-24] MEDS: Allopurinol 100 MG Tab PO SCH (10:03)
[2023-02-24] MEDS: Furosemide 40 MG Tab PO SCH (10:03)
[2023-02-24] MEDS: Cephalexin 500 MG Cap PO SCH (10:03)
[2023-02-24] MEDS: amLODIPine 5 MG Tab PO SCH (10:04)
[2023-02-24] MEDS: Polyethylene Glycol 3350 Powder 17 GM Packet PO SCH (10:05)
[2023-02-24] MEDS: Potassium Chloride 20 MEQ Tab.ER PO SCH (10:05)
[2023-02-24 12:16] VITALS: BP 124/98; PULSE 76
== END 2023-02-24 13:30 ==
LOC: JD.ED 22:36 → JD.MS 02-23 00:12
PROVIDERS: ADMIT Internal Medicine; ATTEND Internal Medicine
DX: S06.5X0D Traumatic subdural hemorrhage without loss of consciousness, subsequent encounter (principal); N18.32 Chronic kidney disease, stage 3b; R29.6 Repeated falls; G20 Parkinson's disease; M19.90 Unspecified osteoarthritis, unspecified site; M81.0 Age-related osteoporosis without current pathological fracture; M10.9 Gout, unspecified; F32.A Depression, unspecified; F41.0 Panic disorder [episodic paroxysmal anxiety]; G47.00 Insomnia, unspecified; J18.9 Pneumonia, unspecified organism; D63.1 Anemia in chronic kidney disease; D50.9 Iron deficiency anemia, unspecified; Z79.899 Other long term (current) drug therapy; Z98.890 Other specified postprocedural states; Z90.49 Acquired absence of other specified parts of digestive tract
CPT/HCPCS: 12011; 36415; 70450; 72125; 80048; 85025; 87641; 90471; 90715; 97162; 97165; 97530; 99285; A9270; G0378; 99222; 99239; 99283; J3490